=== PATIENT | female | born 1975 | race Two or more races ===

== ENCOUNTER 2019-03-18 17:29 | Inpatient (IN) | payer SELFPAY ==
[~2019-03-18] VITALS: Ht 172.7 cm; Wt 63.5 kg
[2019-03-18 18:14] LABS: BASO % 1 % (0-3); EOS % 0 % (0-3); LYMPH # 1.6 x10^3/uL (1.0-4.8); LYMPH % 30 % (24-48); MEAN CORPUSCULAR HEMOGLOBIN 16 pg (25-35); MEAN CORPUSCULAR HGB CONC 28 g/dL (31-37); MEAN CORPUSCULAR VOLUME 56 fL (79-100); MONO # 0.4 x10^3/uL (0.0-1.1); MONO % 8 % (0-9); NEUT # 3.3 x10^3/uL (1.8-7.7); NEUT % 62 % (31-73); PLATELET COUNT 379 x10^3/uL (140-400); RED BLOOD COUNT 3.12 x10^6/uL (3.50-5.40); RED CELL DISTRIBUTION WIDTH 19.4 % (11.5-14.5); WHITE BLOOD COUNT 5.4 x10^3/uL (4.0-11.0)
[2019-03-18 18:19] LABS: HEMATOCRIT 17.6 % (36.0-47.0)
[2019-03-18 19:10] LABS: ANISOCYTOSIS MOD; HYPOCHROMIA MARKED; MICROCYTOSIS MARKED; PLT ESTIMATE ADEQUATE (ADEQUATE); POLYCHROMASIA SLIGHT
--- NOTE | 2019-03-18 19:26 | PHYS DOC ---
Past Medical History Past Medical History: No Pertinent History Additional Past Surgical Histo: TUMOR REMOVED 2016 Alcohol Use: Occasionally Drug Use: Marijuana Adult General Chief Complaint Chief Complaint: VAGINAL BLEEDING HPI HPI Patient is a 43 year old female who presents in the ED today complaining of dizziness and vaginal bleeding. Patient states she had vaginal bleeding for 3 weeks, she states the bleeding stopped yesterday that she's realize she's had dizziness that has gotten worse today. She states the dizziness is worse when she is up and moving. Denies any abdominal pain. She states she has history of chronic anemia but is afraid she could've lost small blood bleeding. Review of Systems Review of Systems Constitutional: Denies fever or chills [] Eyes: Denies change in visual acuity, redness, or eye pain [] HENT: Denies nasal congestion or sore throat [] Respiratory: Denies cough or shortness of breath [] Cardiovascular: No additional information not addressed in HPI [] GI: Reports vaginal bleeding. Denies abdominal pain, nausea, vomiting, bloody stools or diarrhea [] : Denies dysuria or hematuria [] Musculoskeletal: Denies back pain or joint pain [] Integument: Denies rash or skin lesions [] Neurologic: Reports dizziness. Denies headache, focal weakness or sensory changes [] All other systems were reviewed and found to be within normal limits, except as documented in this note. Allergies Allergies Allergies Coded Allergies Type Severity Reaction Last Updated Verified Penicillins Allergy Intermediate 03/18/19 Yes Physical Exam Physical Exam Constitutional: Well developed, well nourished, no acute distress, non-toxic appearance. [] HENT: Normocephalic, atraumatic, bilateral external ears normal, oropharynx moist, no oral exudates, nose normal. [] Eyes: PERRLA, EOMI, conjunctiva normal, no discharge. [] Neck: Normal range of motion, no tenderness, supple, no stridor. [] Cardiovascular:Heart rate regular rhythm, no murmur [] Lungs & Thorax: Bilateral breath sounds clear to auscultation [] Abdomen: Bowel sounds normal, soft, no tenderness, no masses, no pulsatile masses. [] Pelvic exam external pelvic appears normal, cervix is visualized, closed, nausea, no adnexal tenderness, trace amount of white discharge in the vaginal vault. No bleeding Skin: Warm, dry, no erythema, no rash. [] Back: No tenderness, no CVA tenderness. [] Extremities: No tenderness, no cyanosis, no clubbing, ROM intact, no edema. [] Neurologic: Alert and oriented X 3, normal motor function, normal sensory fun ction, no focal deficits noted. [] Psychologic: Affect normal, judgement normal, mood normal. [] Current Patient Data Vital Signs Vital Signs Date Time Temp Pulse Resp B/P (MAP) Pulse Ox O2 Delivery O2 Flow Rate FiO2 03/18/19 17:50 98.2 77 16 91/48 (62) 99 Room Air 98.2 Lab Values Laboratory Tests Test 03/18/19 17:55 03/18/19 18:00 POC Urine HCG, Qualitative Hcg negative (Negative) White Blood Count 5.4 x10^3/uL (4.0-11.0) Red Blood Count 3.12 x10^6/uL (3.50-5.40) L Hemoglobin 5.0 g/dL (12.0-15.5) *L Hematocrit 17.6 % (36.0-47.0) *L Mean Corpuscular Volume 56 fL (79-100) L Mean Corpuscular Hemoglobin 16 pg (25-35) L Mean Corpuscular Hemoglobin Concent 28 g/dL (31-37) L Red Cell Distribution Width 19.4 % (11.5-14.5) H Platelet Count 379 x10^3/uL (140-400) Neutrophils (%) (Auto) 62 % (31-73) Lymphocytes (%) (Auto) 30 % (24-48) Monocytes (%) (Auto) 8 % (0-9) Eosinophils (%) (Auto) 0 % (0-3) Basophils (%) (Auto) 1 % (0-3) Neutrophils # (Auto) 3.3 x10^3/uL (1.8-7.7) Lymphocytes # (Auto) 1.6 x10^3/uL (1.0-4.8) Monocytes # (Auto) 0.4 x10^3/uL (0.0-1.1) Eosinophils # (Auto) 0.0 x10^3/uL (0.0-0.7) Basophils # (Auto) 0.0 x10^3/uL (0.0-0.2) Platelet Estimate Adequate (ADEQUATE) Large Platelets Few Polychromasia Slight Hypochromasia Marked Anisocytosis Mod Microcytosis Marked Macrocytosis Slight Laboratory Tests 03/18/19 18:00 Microbiology 03/18/19 Wet Prep - Final, Complete EKG EKG [] Radiology/Procedures Radiology/Procedures [] Course & Med Decision Making Course & Med Decision Making Pertinent Labs and Imaging studies reviewed. (See chart for details) This is a 43-year-old female patient presenting to the ED today with vaginal bleeding for 3 weeks that stopped yesterday and is currently dizzy. CBC with a WBC hemoglobin of 5.0, hematocrit 17.6. OB ultrasound is still pending. Blood pressure 91/48 with a heart rate of [address] Doe who will follow-up with patient Spoke with Dr. Corrigan who accepted patient for admission Blood transfusion ordered. Patient had no bleeding during pelvic exam Dragon Disclaimer Dragon Disclaimer This electronic medical record was generated, in whole or in part, using a voice recognition dictation system. Departure Departure Impression: Primary Impression: Anemia Additional Impression: Dysfunctional uterine bleeding Disposition: ADMITTED INPATIENT Condition: STABLE Problem Qualifiers Primary Impression: Anemia Anemia type: unspecified type Qualified Codes: D64.9 - Anemia, unspecified LEVI ORNELAS DOCTOR OSTEOPATHIC Mar 18, 2019 19:26
--- NOTE | 2019-03-18 19:28 | RAD ---
PELVIS W/TV History: Vaginal bleeding for 3 weeks Comparison: None. Findings: Multiple transabdominal sonographic images of the pelvis are submitted. Left ovary and uterus are poorly visualized. There is a hypoechoic lesion of the right ovary about 3 x 2.8 x 2.9 cm. Right ovary measures about 4.2 x 2.5 x 4.3 cm with normal color flow, spectral analysis waveform images are submitted. Transvaginal ultrasound: Multiple transvaginal sonographic images of pelvis are submitted. Endometrium is not significantly thickened about 0.5 cm although somewhat heterogeneous appearance and areas of relative increased vascularity. Uterus measured about 9.8 x 5.7 x 5.8 cm, somewhat heterogeneous appearance of the uterus. Right ovary is suboptimally visualized. There is a hypoechoic lesion of the right ovary. Left ovary measured 2.8 x 2.2 x 2.9 cm. There is normal color flow and low resistance vascularity of the left ovary. There is a hypoechoic lesion with internal septation of the left ovary about 10.9 x 1.7 x 1.6 cm, also some internal echoes present. No free fluid is demonstrated. There are some nabothian cysts. Impression: 1. Endometrial thickness is not considered significantly thickened although heterogeneous appearance with areas of relative hypervascularity, component of hyperplasia not excludable. Short-term follow-up within 2 months may be beneficial. 2. There is a somewhat complex cyst of the left ovary up to 1.9 cm and a cyst of the right ovary about 3 cm also for which attention on follow-up advised. Electronically signed by: Brody Barrera MD (03/18/2019 7:25 PM) [facility]
[2019-03-18] MEDS ORDERED: MORPHINE SULFATE 2 MG/ML VIAL. IV PRN (19:30)
[2019-03-18] MEDS ORDERED: ONDANSETRON PF 4 MG/2 ML VIAL. IV PRN (19:30)
[2019-03-18 20:00] VITALS: BP 99/34
[2019-03-18 21:18] VITALS: BP 99/48
[2019-03-18 21:31] VITALS: BP 99/53
[2019-03-18 22:32] VITALS: BP 107/61
[2019-03-18 23:05] VITALS: BP 107/61
[2019-03-18 23:33] VITALS: BP 100/50
[2019-03-19] VITALS (9 sets, daily range): BP systolic 92–115; BP diastolic 33–64
[2019-03-19 00:34] LABS: HEMATOCRIT 20.2 % (36.0-47.0)
[2019-03-19] MEDS ORDERED: BIOT1TAB2 PO (02:27)
[2019-03-19] MEDS ORDERED: MULT1TAB52 PO (02:27)
[2019-03-19 07:28] LABS: BASO % 1 % (0-3); EOS % 0 % (0-3); LYMPH # 1.6 x10^3/uL (1.0-4.8); LYMPH % 35 % (24-48); MEAN CORPUSCULAR HEMOGLOBIN 18 pg (25-35); MEAN CORPUSCULAR HGB CONC 30 g/dL (31-37); MEAN CORPUSCULAR VOLUME 61 fL (79-100); MONO # 0.4 x10^3/uL (0.0-1.1); MONO % 10 % (0-9); NEUT # 2.5 x10^3/uL (1.8-7.7); NEUT % 55 % (31-73); PLATELET COUNT 325 x10^3/uL (140-400); RED BLOOD COUNT 3.35 x10^6/uL (3.50-5.40); RED CELL DISTRIBUTION WIDTH 24.3 % (11.5-14.5); WHITE BLOOD COUNT 4.6 x10^3/uL (4.0-11.0)
[2019-03-19 08:03] LABS: HEMATOCRIT 20.3 % (36.0-47.0)
[2019-03-19 08:27] LABS: PROTHROMBIN TIME PATIENT 13.2 SEC (11.7-14.0)
[2019-03-19] MEDS ORDERED: ONDANSETRON PF 4 MG/2 ML VIAL. IV PRN (08:30)
[2019-03-19] MEDS ORDERED: ACETAMINOPHEN/CODEINE 300/30MG TABLET. PO PRN (08:30)
[2019-03-19] MEDS ORDERED: ACETAMINOPHEN 500 MG TABLET PO PRN (08:30)
[2019-03-19] MEDS: FERROUS SULFATE 325 MG TABLET. PO SCH (08:50)
[2019-03-19] MEDS: MULTIVITAMIN with MINERAL TABLET. PO SCH (08:50)
[2019-03-19] MEDS ORDERED: NON FORMULARY ITEM (Biotin 1 TAB) PO SCH (09:00)
[2019-03-19] MEDS ORDERED: FLU VAX QS 2019-20 (36MOS+)/PF 0.5 ML SYRINGE. VAX IM ONE (09:00)
--- NOTE | 2019-03-19 09:58 | PDOC1 ---
History and Physical Date of Admission Date of Admission DATE: 03/19/19 TIME: 09:51 Identification/Chief Complaint Chief Complaint no energy, dizzy Source Source: Caregiver, Chart review, Patient History of Present Illness History of Present Illness 43 female, no past medical, menorrhagia x 3 weeks, EVERYDAY, CLOTS. (3-1-0-3), had hx the same 2016 needed some oB GYNE surgical intervention (she cant recall) at [place], was mentioned to consider [facility]A before, SHe comes in bec dizzy and no energy at home and was found to have hgb 5 at ER so admitted, Microcytic indices, US pelvic shows only 0.5 cm endometrial thickening (already bled out her lining?) and some physiologic cysts, She is NOT bleeding anymore, AFter BT, hgb is only 6 and is about to get 1 pRBC again and I started provera and slated for D & C tmr AM by GYne Past Medical History Cardiovascular: No pertinent hx Pulmonary: No pertinent hx GI: No pertinent hx Heme/Onc: No pertinent hx Hepatobiliary: No pertinent hx Psych: No pertinent hx Rheumatologic: No pertinent hx Infectious disease: No pertinent hx ENT: No pertinent hx Renal/: No pertinent hx Endocrine: No pertinent hx Dermatology: No pertinent hx Past Surgical History Past Surgical History: Other (OB deliveries) Family History Family History: No Significant Social History Smoke: No ALCOHOL: none Drugs: None Current Problem List Problem List Problems Medical Problems: (1) Anemia Status: Acute (2) Dysfunctional uterine bleeding Status: Acute Current Medications Current Medications Current Medications Ondansetron HCl (Zofran) 4 mg PRN Q8HRS PRN IV NAUSEA/VOMITING; Start 03/18/19 at 19:30; Stop 03/19/19 at 08:20; Status DC Morphine Sulfate (Morphine Sulfate) 2 mg PRN Q2HR PRN IV PAIN; Start 03/18/19 at 19:30; Stop 03/19/19 at 19:29 Influenza Virus Vaccine Quadrival (Afluria Quad 2019-20 (3yr Up) Syringe) 0.5 ml ONCE ONCE VAX IM Last administered on 03/19/19at 08:52; Start 03/19/19 at 09:00; Stop 03/19/19 at 09:01; Status DC Ondansetron HCl (Zofran) 4 mg PRN Q6HRS PRN IV NAUSEA/VOMITING; Start 03/19/19 at 08:30 Acetaminophen (Tylenol) 500 mg PRN Q6HRS PRN PO MILD PAIN / TEMP; Start 03/19/19 at 08:30 Acetaminophen/ Codeine Phosphate (Tylenol #3) 1 tab PRN Q6HRS PRN PO MODERATE PAIN; Start 03/19/19 at 08:30 Non-Formulary Medication (Biotin ) 1 tab DAILY PO ; Start 03/19/19 at 09:00; Status UNV Multivitamins (Thera M Plus) 1 tab DAILY PO Last administered on 03/19/19at 08:50; Start 03/19/19 at 09:00 Ferrous Sulfate (Feosol) 325 mg DAILYWBKFT PO Last administered on 03/19/19at 08:50; Start 03/19/19 at 09:00 Medroxyprogesterone Acetate (Provera) 10 mg DAILY PO Last administered on 03/19/19at 08:50; Start 03/19/19 at 09:00 Active Scripts Active Reported Biotin 1 Mg Tablet 1 Tab PO DAILY 30 Days Multivitamins (Multivitamin) 1 Each Tablet 1 Tab PO DAILY Allergies Allergies: Coded Allergies: Penicillins (Verified Allergy, Intermediate, 03/18/19) ROS Review of System as per hpi, rest 14 pt neg Physical Exam General: Alert, Oriented X3, Cooperative, No acute distress HEENT: Atraumatic, PERRLA, EOMI, Other (pale palpebral conjunctivae) Lungs: Clear to auscultation, Normal air movement Heart: S1S2, RRR, no thrills, no rubs, no gallops, no murmurs Cardiovascular: S1 Abdomen: Normal bowel sounds, Soft, No tenderness, No hepatosplenomegaly, No masses Rectal Exam: not examined PELVIC: Nml ext genitalia Extremities: No clubbing, No cyanosis, No edema, Normal pulses, No tenderness/swelling Skin: No rashes, No breakdown, No significant lesion Neuro: Normal gait, Normal speech, Strength at 5/5 X4 ext, Normal tone, Sensation intact, Cranial nerves 3-12 NL, Reflexes 2+ Psych/Mental Status: Mental status NL, Mood NL Vitals Vitals Vital Signs Date Time Temp Pulse Resp B/P (MAP) Pulse Ox O2 Delivery O2 Flow Rate FiO2 10/13/19 07:40 98.6 58 18 92/49 (63) 96 Room Air 98.6 Labs Labs Laboratory Tests Test 03/18/19 17:55 03/18/19 18:00 03/19/19 00:25 03/19/19 05:33 Bedside Urine HCG, Qualitative Hcg negative (Negative) White Blood Count 5.4 x10^3/uL (4.0-11.0) 4.6 x10^3/uL (4.0-11.0) Red Blood Count 3.12 x10^6/uL (3.50-5.40) 3.35 x10^6/uL (3.50-5.40) Hemoglobin 5.0 g/dL (12.0-15.5) 6.0 g/dL (12.0-15.5) 6.0 g/dL (12.0-15.5) Hematocrit 17.6 % (36.0-47.0) 20.2 % (36.0-47.0) 20.3 % (36.0-47.0) Mean Corpuscular Volume 56 fL (79-100) 61 fL (79-100) Mean Corpuscular Hemoglobin 16 pg (25-35) 18 pg (25-35) Mean Corpuscular Hemoglobin Concent 28 g/dL (31-37) 30 g/dL (31-37) 30 g/dL (31-37) Red Cell Distribution Width 19.4 % (11.5-14.5) 24.3 % (11.5-14.5) Platelet Count 379 x10^3/uL (140-400) 325 x10^3/uL (140-400) Neutrophils (%) (Auto) 62 % (31-73) 55 % (31-73) Lymphocytes (%) (Auto) 30 % (24-48) 35 % (24-48) Monocytes (%) (Auto) 8 % (0-9) 10 % (0-9) Eosinophils (%) (Auto) 0 % (0-3) 0 % (0-3) Basophils (%) (Auto) 1 % (0-3) 1 % (0-3) Neutrophils # (Auto) 3.3 x10^3/uL (1.8-7.7) 2.5 x10^3/uL (1.8-7.7) Lymphocytes # (Auto) 1.6 x10^3/uL (1.0-4.8) 1.6 x10^3/uL (1.0-4.8) Monocytes # (Auto) 0.4 x10^3/uL (0.0-1.1) 0.4 x10^3/uL (0.0-1.1) Eosinophils # (Auto) 0.0 x10^3/uL (0.0-0.7) 0.0 x10^3/uL (0.0-0.7) Basophils # (Auto) 0.0 x10^3/uL (0.0-0.2) 0.0 x10^3/uL (0.0-0.2) Platelet Estimate Adequate (ADEQUATE) Large Platelets Few Polychromasia Slight Hypochromasia Marked Anisocytosis Mod Microcytosis Marked Macrocytosis Slight Iron Level 19 ug/dL (50-170) Total Iron Binding Capacity 405 ug/dL (250-450) Iron Saturation 5 % (15-34) Test 03/19/19 08:11 Prothrombin Time 13.2 SEC (11.7-14.0) Prothromb Time International Ratio 1.0 (0.8-1.1) Laboratory Tests Test 03/18/19 17:55 03/18/19 18:00 03/19/19 00:25 03/19/19 05:33 Bedside Urine HCG, Qualitative Hcg negative (Negative) White Blood Count 5.4 x10^3/uL (4.0-11.0) 4.6 x10^3/uL (4.0-11.0) Red Blood Count 3.12 x10^6/uL (3.50-5.40) 3.35 x10^6/uL (3.50-5.40) Hemoglobin 5.0 g/dL (12.0-15.5) 6.0 g/dL (12.0-15.5) 6.0 g/dL (12.0-15.5) Hematocrit 17.6 % (36.0-47.0) 20.2 % (36.0-47.0) 20.3 % (36.0-47.0) Mean Corpuscular Volume 56 fL (79-100) 61 fL (79-100) Mean Corpuscular Hemoglobin 16 pg (25-35) 18 pg (25-35) Mean Corpuscular Hemoglobin Concent 28 g/dL (31-37) 30 g/dL (31-37) 30 g/dL (31-37) Red Cell Distribution Width 19.4 % (11.5-14.5) 24.3 % (11.5-14.5) Platelet Count 379 x10^3/uL (140-400) 325 x10^3/uL (140-400) Neutrophils (%) (Auto) 62 % (31-73) 55 % (31-73) Lymphocytes (%) (Auto) 30 % (24-48) 35 % (24-48) Monocytes (%) (Auto) 8 % (0-9) 10 % (0-9) Eosinophils (%) (Auto) 0 % (0-3) 0 % (0-3) Basophils (%) (Auto) 1 % (0-3) 1 % (0-3) Neutrophils # (Auto) 3.3 x10^3/uL (1.8-7.7) 2.5 x10^3/uL (1.8-7.7) Lymphocytes # (Auto) 1.6 x10^3/uL (1.0-4.8) 1.6 x10^3/uL (1.0-4.8) Monocytes # (Auto) 0.4 x10^3/uL (0.0-1.1) 0.4 x10^3/uL (0.0-1.1) Eosinophils # (Auto) 0.0 x10^3/uL (0.0-0.7) 0.0 x10^3/uL (0.0-0.7) Basophils # (Auto) 0.0 x10^3/uL (0.0-0.2) 0.0 x10^3/uL (0.0-0.2) Platelet Estimate Adequate (ADEQUATE) Large Platelets Few Polychromasia Slight Hypochromasia Marked Anisocytosis Mod Microcytosis Marked Macrocytosis Slight Iron Level 19 ug/dL (50-170) Total Iron Binding Capacity 405 ug/dL (250-450) Iron Saturation 5 % (15-34) Test 03/19/19 08:11 Prothrombin Time 13.2 SEC (11.7-14.0) Prothromb Time International Ratio 1.0 (0.8-1.1) VTE Prophylaxis Ordered VTE Prophylaxis Devices: Contraindicated VTE Pharmacological Prophylaxi: Contraindicated Assessment/Plan Assessment/Plan 1. Menorrhagia x 3 weeks 2. HX uterine bleeding 2016 at [place] (s.p unrecalled uterine procedure and was mentioned MIRA) 3. Microcytic anemia 4,. Symptomatic anemia 5. Acute precip drop hgb PLAN: I might transfuse a second bag in prep for D and C Do 2 units instead Start provera 10 daily - if gyne ok with this NPO Post [place], start IVF at 11 OM tonight while NPO - dw and RN at bedside I discussed pelvic sono findings with them and provided a copy No home meds to reconcile HH tmr SANDRA NUR MD Mar 19, 2019 09:58
[2019-03-19 16:49] LABS: HEMATOCRIT 25.5 % (36.0-47.0); HEMOGLOBIN 7.7 g/dL (12.0-15.5)
[2019-03-19] MEDS: IV NORMAL SALINE 1000ML BAG 1,000 ML IV SCH (23:15)
[2019-03-20 02:20] VITALS: BP 108/55
[2019-03-20 07:00] VITALS: BP 92/43
[2019-03-20 07:06] LABS: HEMATOCRIT 24.1 % (36.0-47.0); HEMOGLOBIN 7.2 g/dL (12.0-15.5)
[2019-03-20 07:26] LABS: CALCIUM 8.3 mg/dL (8.5-10.1); CREATININE 0.5 mg/dL (0.6-1.0); POTASSIUM 3.7 mmol/L (3.5-5.1)
[2019-03-20] MEDS: IV NORMAL SALINE 1000ML BAG 1,000 ML IV SCH (09:00)
--- NOTE | 2019-03-20 09:02 | PDOC ---
PROGRESS NOTES Chief Complaint Chief Complaint A/P: Acute blood loss anemia Vaginal bleeding History of Present Illness History of Present Illness Ms Christianson is a 43 yo female (3-1-0-3) w/ PMHx prior myomectomy 2105 who presents with menorrhagia x 3 weeks. She was c/o being dizzy and no energy at home and was found to have hgb 5 at ER so admitted, Microcytic indices, US pelvic shows only 0.5 cm endometrial thickening and some physiologic cysts. Bleeding stopped after initiation of provera and was given 2u PRBC to Hb 7.2 and started on iron and vitamin c. Seen by child welfare counselor, had pap, biopsy, negative GC/chlamydia and is feeling much better today Vitals Vitals Vital Signs Date Time Temp Pulse Resp B/P (MAP) Pulse Ox O2 Delivery O2 Flow Rate FiO2 03/20/19 07:00 97.8 54 17 92/43 (59) 98 Room Air 97.8 Physical Exam General: Alert, Oriented X3, Cooperative, No acute distress Abdomen: Normal bowel sounds, Soft, No tenderness, No hepatosplenomegaly, No masses Extremities: No clubbing, No cyanosis, No edema, Normal pulses, No tenderness/swelling Skin: No rashes, No breakdown, No significant lesion Labs LABS Laboratory Tests Test 03/19/19 15:30 03/20/19 05:25 Hemoglobin 7.7 g/dL (12.0-15.5) 7.2 g/dL (12.0-15.5) Hematocrit 25.5 % (36.0-47.0) 24.1 % (36.0-47.0) Mean Corpuscular Hemoglobin Concent 30 g/dL (31-37) 30 g/dL (31-37) Sodium Level 142 mmol/L (136-145) Potassium Level 3.7 mmol/L (3.5-5.1) Chloride Level 110 mmol/L (98-107) Carbon Dioxide Level 25 mmol/L (21-32) Anion Gap 7 (6-14) Blood Urea Nitrogen 9 mg/dL (7-20) Creatinine 0.5 mg/dL (0.6-1.0) Estimated GFR (Cockcroft-Gault) 134.0 Glucose Level 73 mg/dL (70-99) Calcium Level 8.3 mg/dL (8.5-10.1) Assessment and Plan Assessmemt and Plan Problems Medical Problems: (1) Anemia Status: Acute (2) Dysfunctional uterine bleeding Status: Acute Comment Review of Relevant I have reviewed the following items cecil (where applicable) has been applied. Labs Laboratory Tests Test 03/18/19 17:55 03/18/19 18:00 03/19/19 00:25 03/19/19 05:33 Bedside Urine HCG, Qualitative Hcg negative (Negative) White Blood Count 5.4 x10^3/uL (4.0-11.0) 4.6 x10^3/uL (4.0-11.0) Red Blood Count 3.12 x10^6/uL (3.50-5.40) 3.35 x10^6/uL (3.50-5.40) Hemoglobin 5.0 g/dL (12.0-15.5) 6.0 g/dL (12.0-15.5) 6.0 g/dL (12.0-15.5) Hematocrit 17.6 % (36.0-47.0) 20.2 % (36.0-47.0) 20.3 % (36.0-47.0) Mean Corpuscular Volume 56 fL (79-100) 61 fL (79-100) Mean Corpuscular Hemoglobin 16 pg (25-35) 18 pg (25-35) Mean Corpuscular Hemoglobin Concent 28 g/dL (31-37) 30 g/dL (31-37) 30 g/dL (31-37) Red Cell Distribution Width 19.4 % (11.5-14.5) 24.3 % (11.5-14.5) Platelet Count 379 x10^3/uL (140-400) 325 x10^3/uL (140-400) Neutrophils (%) (Auto) 62 % (31-73) 55 % (31-73) Lymphocytes (%) (Auto) 30 % (24-48) 35 % (24-48) Monocytes (%) (Auto) 8 % (0-9) 10 % (0-9) Eosinophils (%) (Auto) 0 % (0-3) 0 % (0-3) Basophils (%) (Auto) 1 % (0-3) 1 % (0-3) Neutrophils # (Auto) 3.3 x10^3/uL (1.8-7.7) 2.5 x10^3/uL (1.8-7.7) Lymphocytes # (Auto) 1.6 x10^3/uL (1.0-4.8) 1.6 x10^3/uL (1.0-4.8) Monocytes # (Auto) 0.4 x10^3/uL (0.0-1.1) 0.4 x10^3/uL (0.0-1.1) Eosinophils # (Auto) 0.0 x10^3/uL (0.0-0.7) 0.0 x10^3/uL (0.0-0.7) Basophils # (Auto) 0.0 x10^3/uL (0.0-0.2) 0.0 x10^3/uL (0.0-0.2) Platelet Estimate Adequate (ADEQUATE) Large Platelets Few Polychromasia Slight Hypochromasia Marked Anisocytosis Mod Microcytosis Marked Macrocytosis Slight Iron Level 19 ug/dL (50-170) Total Iron Binding Capacity 405 ug/dL (250-450) Iron Saturation 5 % (15-34) Test 03/19/19 08:11 03/19/19 15:30 03/20/19 05:25 Prothrombin Time 13.2 SEC (11.7-14.0) Prothromb Time International Ratio 1.0 (0.8-1.1) Hemoglobin 7.7 g/dL (12.0-15.5) 7.2 g/dL (12.0-15.5) Hematocrit 25.5 % (36.0-47.0) 24.1 % (36.0-47.0) Mean Corpuscular Hemoglobin Concent 30 g/dL (31-37) 30 g/dL (31-37) Sodium Level 142 mmol/L (136-145) Potassium Level 3.7 mmol/L (3.5-5.1) Chloride Level 110 mmol/L (98-107) Carbon Dioxide Level 25 mmol/L (21-32) Anion Gap 7 (6-14) Blood Urea Nitrogen 9 mg/dL (7-20) Creatinine 0.5 mg/dL (0.6-1.0) Estimated GFR (Cockcroft-Gault) 134.0 Glucose Level 73 mg/dL (70-99) Calcium Level 8.3 mg/dL (8.5-10.1) Laboratory Tests Test 03/19/19 15:30 03/20/19 05:25 Hemoglobin 7.7 g/dL (12.0-15.5) 7.2 g/dL (12.0-15.5) Hematocrit 25.5 % (36.0-47.0) 24.1 % (36.0-47.0) Mean Corpuscular Hemoglobin Concent 30 g/dL (31-37) 30 g/dL (31-37) Sodium Level 142 mmol/L (136-145) Potassium Level 3.7 mmol/L (3.5-5.1) Chloride Level 110 mmol/L (98-107) Carbon Dioxide Level 25 mmol/L (21-32) Anion Gap 7 (6-14) Blood Urea Nitrogen 9 mg/dL (7-20) Creatinine 0.5 mg/dL (0.6-1.0) Estimated GFR (Cockcroft-Gault) 134.0 Glucose Level 73 mg/dL (70-99) Calcium Level 8.3 mg/dL (8.5-10.1) Microbiology 03/18/19 Wet Prep - Final, Complete Medications Current Medications Ondansetron HCl (Zofran) 4 mg PRN Q8HRS PRN IV NAUSEA/VOMITING; Start 03/18/19 at 19:30; Stop 03/19/19 at 08:20; Status DC Morphine Sulfate (Morphine Sulfate) 2 mg PRN Q2HR PRN IV PAIN; Start 03/18/19 at 19:30; Stop 03/19/19 at 19:29; Status DC Influenza Virus Vaccine Quadrival (Afluria Quad 2019-20 (3yr Up) Syringe) 0.5 ml ONCE ONCE VAX IM Last administered on 03/19/19at 08:52; Start 03/19/19 at 09:00; Stop 03/19/19 at 09:01; Status DC Ondansetron HCl (Zofran) 4 mg PRN Q6HRS PRN IV NAUSEA/VOMITING; Start 03/19/19 at 08:30 Acetaminophen (Tylenol) 500 mg PRN Q6HRS PRN PO MILD PAIN / TEMP; Start 03/19/19 at 08:30 Acetaminophen/ Codeine Phosphate (Tylenol #3) 1 tab PRN Q6HRS PRN PO MODERATE PAIN; Start 03/19/19 at 08:30 Non-Formulary Medication (Biotin ) 1 tab DAILY PO ; Start 03/19/19 at 09:00; Status UNV Multivitamins (Thera M Plus) 1 tab DAILY PO Last administered on 03/19/19at 08:50; Start 03/19/19 at 09:00 Ferrous Sulfate (Feosol) 325 mg DAILYWBKFT PO Last administered on 03/19/19at 08:50; Start 03/19/19 at 09:00 Medroxyprogesterone Acetate (Provera) 10 mg DAILY PO Last administered on 03/19/19at 08:50; Start 03/19/19 at 09:00 Sodium Chloride 1,000 ml @ 100 mls/hr Q10H IV Last administered on 03/19/19at 23:15; Start 03/19/19 at 23:00 Active Scripts Active Reported Biotin 1 Mg Tablet 1 Tab PO DAILY 30 Days Multivitamins (Multivitamin) 1 Each Tablet 1 Tab PO DAILY Vitals/I & O Vital Sign - Last 24 Hours 03/19/19 03/19/19 03/19/19 03/19/19 09:25 09:40 10:40 10:58 Temp 98.6 98.1 98.3 98.3 98.6 98.1 98.3 98.3 Pulse 58 62 57 57 Resp 18 18 16 18 B/P (MAP) 92/49 95/33 104/46 104/46 (65) Pulse Ox 99 O2 Delivery Room Air 03/19/19 03/19/19 03/19/19 03/19/19 15:05 19:00 20:00 22:57 Temp 98.7 98.5 98.3 98.7 98.5 98.3 Pulse 61 54 78 Resp 18 19 18 B/P (MAP) 98/41 (60) 99/56 (70) 115/64 (81) Pulse Ox 98 96 99 O2 Delivery Room Air Room Air Room Air Room Air 03/20/19 03/20/19 02:20 07:00 Temp 98.2 97.8 98.2 97.8 Pulse 69 54 Resp 19 17 B/P (MAP) 108/55 (72) 92/43 (59) Pulse Ox 98 98 O2 Delivery Room Air Room Air Intake and Output 03/19/19 03/19/19 03/20/19 14:59 22:59 06:59 Intake Total 280 ml Output Total 0 ml Balance 280 ml 0 ml GARTH GOMEZ MD Mar 20, 2019 09:02
[2019-03-20] MEDS: MULTIVITAMIN with MINERAL TABLET. PO SCH (10:40)
[2019-03-20] MEDS: FERROUS SULFATE 325 MG TABLET. PO SCH (10:41)
[2019-03-20 10:59] VITALS: BP 92/50
[2019-03-20] MEDS ORDERED: MEDR2.5T28 PO (14:52)
[2019-03-20] MEDS ORDERED: ACET1TAB33 PO ×3 (14:52→15:05)
[2019-03-20 15:04] VITALS: BP 95/49
--- NOTE | 2019-03-20 15:30 | NUR ---
pt discharged home with significant other. IV removed cath intact. script for tylenol #3 provided. pt stable upon DC. RN attempted to call in [employer] script to [facility], but pharmacist said there were 2 patients w/ same name and in system and they needed address to verify. pt had no address or phone number on hospital face sheet so was not able to verify.
[2019-03-20 19:21] LABS: GC PROBE Negative (Negative)
--- NOTE | 2019-03-20 20:25 | PDOC3 ---
Discharge Summary Visit Information Date of Admission: Mar 18, 2019 Date of Discharge: Mar 20, 2019 Admitting Diagnosis: Acute blood loss anemia Final Diagnosis Problems Medical Problems: (1) Anemia Status: Acute (2) Dysfunctional uterine bleeding Status: Acute Brief Hospital Course Allergies Allergies Coded Allergies Type Severity Reaction Last Updated Verified Penicillins Allergy Intermediate 03/18/19 Yes Vital Signs Vital Signs Date Time Temp Pulse Resp B/P (MAP) Pulse Ox O2 Delivery O2 Flow Rate FiO2 03/20/19 15:04 97.8 55 17 95/49 (64) 98 Room Air 97.8 Lab Results Laboratory Tests Test 03/19/19 00:25 03/19/19 05:33 03/19/19 08:11 03/19/19 15:30 Hemoglobin 6.0 g/dL (12.0-15.5) 6.0 g/dL (12.0-15.5) 7.7 g/dL (12.0-15.5) Hematocrit 20.2 % (36.0-47.0) 20.3 % (36.0-47.0) 25.5 % (36.0-47.0) Mean Corpuscular Hemoglobin Concent 30 g/dL (31-37) 30 g/dL (31-37) 30 g/dL (31-37) White Blood Count 4.6 x10^3/uL (4.0-11.0) Red Blood Count 3.35 x10^6/uL (3.50-5.40) Mean Corpuscular Volume 61 fL (79-100) Mean Corpuscular Hemoglobin 18 pg (25-35) Red Cell Distribution Width 24.3 % (11.5-14.5) Platelet Count 325 x10^3/uL (140-400) Neutrophils (%) (Auto) 55 % (31-73) Lymphocytes (%) (Auto) 35 % (24-48) Monocytes (%) (Auto) 10 % (0-9) Eosinophils (%) (Auto) 0 % (0-3) Basophils (%) (Auto) 1 % (0-3) Neutrophils # (Auto) 2.5 x10^3/uL (1.8-7.7) Lymphocytes # (Auto) 1.6 x10^3/uL (1.0-4.8) Monocytes # (Auto) 0.4 x10^3/uL (0.0-1.1) Eosinophils # (Auto) 0.0 x10^3/uL (0.0-0.7) Basophils # (Auto) 0.0 x10^3/uL (0.0-0.2) Iron Level 19 ug/dL (50-170) Total Iron Binding Capacity 405 ug/dL (250-450) Iron Saturation 5 % (15-34) Prothrombin Time 13.2 SEC (11.7-14.0) Prothromb Time International Ratio 1.0 (0.8-1.1) Test 03/20/19 05:25 Hemoglobin 7.2 g/dL (12.0-15.5) Hematocrit 24.1 % (36.0-47.0) Mean Corpuscular Hemoglobin Concent 30 g/dL (31-37) Sodium Level 142 mmol/L (136-145) Potassium Level 3.7 mmol/L (3.5-5.1) Chloride Level 110 mmol/L (98-107) Carbon Dioxide Level 25 mmol/L (21-32) Anion Gap 7 (6-14) Blood Urea Nitrogen 9 mg/dL (7-20) Creatinine 0.5 mg/dL (0.6-1.0) Estimated GFR (Cockcroft-Gault) 134.0 Glucose Level 73 mg/dL (70-99) Calcium Level 8.3 mg/dL (8.5-10.1) Laboratory Tests Test 03/20/19 05:25 Hemoglobin 7.2 g/dL (12.0-15.5) Hematocrit 24.1 % (36.0-47.0) Mean Corpuscular Hemoglobin Concent 30 g/dL (31-37) Sodium Level 142 mmol/L (136-145) Potassium Level 3.7 mmol/L (3.5-5.1) Chloride Level 110 mmol/L (98-107) Carbon Dioxide Level 25 mmol/L (21-32) Anion Gap 7 (6-14) Blood Urea Nitrogen 9 mg/dL (7-20) Creatinine 0.5 mg/dL (0.6-1.0) Estimated GFR (Cockcroft-Gault) 134.0 Glucose Level 73 mg/dL (70-99) Calcium Level 8.3 mg/dL (8.5-10.1) Brief Hospital Course A/P: Acute blood loss anemia Vaginal bleeding Ms Christianson is a 43 yo female (3-1-0-3) w/ PMHx prior myomectomy 2105 who presents with menorrhagia x 3 weeks. She was c/o being dizzy and no energy at home and was found to have hgb 5 at ER so admitted, Microcytic indices, US pelvic shows only 0.5 cm endometrial thickening and some physiologic cysts. Bleeding stopped after initiation of provera and was given 2u PRBC to Hb 7.2 and started on iron and vitamin c. Seen by ob/gyn, had pap, biopsy, negative GC/chlamydia and is feeling much better today. Greater than 30 minutes spent on d/c Discharge Information Condition at Discharge: Improved Follow Up: Weeks (1) Disposition/Orders: D/C to Home Scheduled Biotin (Biotin) 1 Mg Tablet, 1 TAB PO DAILY for spplement for 30 Days, #30 Ref 0 (Reported) Entered as Reported by: ROLA BAIG on 03/19/19226 Last Taken: Unknown Dose on 03/18/19899 Last Action: Converted on 03/19/19819 by SANDRA NUR Medroxyprogesterone Acetate (Medroxyprogesterone Acetate) 2.5 Mg Tablet, 5 MG PO DAILY for bleeding for 14 Days, #28 Prescribed by: GARTH GOMEZ MD on 03/20/19 5532 Multivitamin (Multivitamins) 1 Each Tablet, 1 TAB PO DAILY for supplement, #90 Ref 3 (Reported) Entered as Reported by: ROLA BAIG on 03/19/19226 Last Taken: Unknown Dose on 03/18/19899 Last Action: Converted on 03/19/19819 by SANDRA NUR Scheduled PRN Acetaminophen With Codeine (Acetaminophen-Cod #3 Tablet) 1 Each Tablet, 1 TAB PO PRN Q6HRS PRN for MODERATE PAIN for 2 Days, #6 Prescribed by: GARTH GOMEZ MD on 03/20/19 1500 GARTH GOMEZ MD Mar 20, 2019 20:25
--- NOTE | 2019-03-21 11:07 | PATHOLOGY ---
[facility] Accession Number: [id number] . 01 Material submitted: . endometrium - ENDOMETRIAL BIOPSY . 01 Clinical history: . Abnormal uterine bleeding . 02 Diagnosis: Endometrium, "endometrial biopsy": - Polypoid fragments revealing disordered proliferative phase endometrium with glandular and stromal breakdown without any evidence of hyperplasia or malignancy. . (SHA:mml; 03/21/2019) [facility] 03/21/2019 0940 Local . 02 Electronically signed: . Jeremías Rivera MD, Pathologist NPI- [id number] . 01 Gross description: . Received in formalin labeled "Christianson, Tina," and additionally labeled on the requisition as "endometrial biopsy," is blood-tinged mucoid material containing small fragments of yun membranous tissue, measuring 2.3 x 0.8 x 0.1 cm in aggregate dimensions. The specimen is filtered and submitted entirely in cassette A1. (TSD; 03/20/2019) TOB/TOB 03/20/20191955 Local . 02 Pathologist provided ICD-10: N85.9 . 02 CPT . 968078 Specimen Comment: A courtesy copy of this report has been sent to Specimen Comment: [phone], . Specimen Comment: Report sent to / DR ORNELAS Specimen Comment: A duplicate report has been generated due to demographic updates. Performed at: 01 [facility] [address], [place] [id number] MD Sanket Prater MD Phone: [phone] Performed at: 02 [facility] [address] [place], [place] [id number] MD Zev Thomason MD Phone: [phone]
--- NOTE | 2019-03-28 21:54 | OP ---
DATE OF SURGERY: 03/20/2019 PREOPERATIVE DIAGNOSES: Anemia, menorrhagia. POSTOPERATIVE DIAGNOSES: Anemia, menorrhagia. PROCEDURE: Endometrial biopsy with Pap smear. SURGEON: Dr. Nadia Doe. ESTIMATED BLOOD LOSS: 500 mL. SPECIMENS: Pap smear, endometrial biopsy. COMPLICATIONS: None. CONDITION: Stable. DESCRIPTION OF PROCEDURE: The patient was brought down from the floor to the procedure room on Labor and Delivery. The patient had risks, benefits, indications, alternatives and expectations discussed. The patient was put on the exam table. A bivalve speculum was used to visualize the cervix. The patient had not had a Pap smear in recent history, so Pap smear was performed. A single tooth tenaculum was used to grasp the anterior lip of the cervix. Endometrial biopsy was performed and placed in formalin. A single tooth tenaculum was removed. Puncture sites were hemostatic. Procedure was terminated. The patient went back to the floor in stable condition. NADIA DOE MD DR: CHRISTA/moustapha JOB#: [id number] / [id number]
--- NOTE | 2019-03-29 00:24 | CONS ---
DATE OF CONSULTATION: 03/19/2019 REASON FOR CONSULT: Menorrhagia with severe anemia. Chart was reviewed. HISTORY OF PRESENT ILLNESS: This is a 43-year-old patient, 3, para 3, that presented to the ER with the vaginal bleeding and anemia. The patient's significant past medical history is noncontributory. The patient states in [place], she had a tumor removed by the hysteroscope with most likely a fibroid. The patient also has a history of marijuana use and alcohol occasionally. The patient was informed secondary to her severe anemia and menorrhagia that endometrial biopsy would need to be performed to rule out any type of hyperplasia or malignancy and options down the road would probably be ablation or hysterectomy or hormonal control. The patient currently wants to have more children. Therefore, she will have endometrial biopsy the following day if stable. IMPRESSION: Menorrhagia, severe anemia. PLAN: Endometrial biopsy. NADIA VELAZQUEZ MD DR: CHRISTA/moustapha JOB#: [id number] / [id number]
== END 2019-03-20 15:30 | disposition home or self-care (01) | DRG 744 ==
LOC: ER 17:29 → 5 SOUTH 18:41
PROVIDERS: ADMIT Family Medicine; ATTEND Family Medicine
PROC: 30233N1 Transfusion of Nonautologous Red Blood Cells into Peripheral Vein, Percutaneous Approach (ICD-10-PCS; principal; 2019-03-18)
PROC: 0UDB7ZX Extraction of Endometrium, Via Natural or Artificial Opening, Diagnostic (ICD-10-PCS; 2019-03-20)
DX: N93.8 Other specified abnormal uterine and vaginal bleeding (principal); D62 Acute posthemorrhagic anemia; N92.0 Excessive and frequent menstruation with regular cycle; D50.9 Iron deficiency anemia, unspecified; Z88.0 Allergy status to penicillin
CPT/HCPCS: 36415; 36430; 76830; 76856; 80048; 81025; 83540; 83550; 85014; 85018; 85025; 85610; 86850; 86900; 86901; 86920; 87491; 87591; 88305; 90471; 90686; J7030; P9016; Q0111; 99285-25; G0378

== ENCOUNTER 2019-03-24 05:20 | Emergency (ER) | payer SELFPAY ==
[~2019-03-24] VITALS: Ht 172.7 cm; Wt 68.5 kg
[~2019-03-24 05:20] MED LIST: ACET1TAB33 PO; BIOT1TAB2 PO; MEDR2.5T28 PO; MULT1TAB52 PO
[2019-03-24 05:45] VITALS: BP 126/58
[2019-03-24] MEDS ORDERED: IV NORMAL SALINE 1000ML BAG 1,000 ML IV SCH ×2 (06:15)
[2019-03-24] MEDS ORDERED: ONDANSETRON PF 4 MG/2 ML VIAL. IV ONE (06:15)
[2019-03-24] MEDS ORDERED: fentaNYL PF VIAL 100 MCG/2 ML VIAL IV ONE (06:15)
--- NOTE | 2019-03-24 06:17 | PHYS DOC ---
Past Medical History Past Medical History: No Pertinent History Additional Past Surgical Histo: TUMOR REMOVED 2015 Alcohol Use: Occasionally Drug Use: Marijuana Adult General Chief Complaint Chief Complaint: VAGINAL BLEEDING HPI HPI Patient is a 43 year old female who presents with complaining of vaginal bleeding. Patient states she has had heavy vaginal bleeding and had hospitalization recently because of anemia and needs for blood transfusion. Patient states she started her menstruation yesterday and having heavy vaginal bleeding with passing blood clots and cramping abdominal pain related to pain 10 over 10. Patient denies chest pain, shortness of breath, nausea vomiting, dizziness. Review of Systems Review of Systems Constitutional: Denies fever or chills [] Eyes: Denies change in visual acuity, redness, or eye pain [] HENT: Denies nasal congestion or sore throat [] Respiratory: Denies cough or shortness of breath [] Cardiovascular: No additional information not addressed in HPI [] GI: Reports abdominal pain, denies nausea, vomiting, bloody stools or diarrhea [] : Denies dysuria or hematuria [] Musculoskeletal: Denies back pain or joint pain [] Integument: Denies rash or skin lesions [] Neurologic: Denies headache, focal weakness or sensory changes [] Endocrine: Denies polyuria or polydipsia [] All other systems were reviewed and found to be within normal limits, except as documented in this note. Current Medications Current Medications Current Medications Medications (Trade) Dose Ordered Sig/Abiel Start Time Stop Time Status Last Admin Dose Admin Fentanyl Citrate (Fentanyl 2ml Vial) 50 mcg 1X ONCE 03/24/19 06:15 03/24/19 06:16 DC 03/24/19 06:39 50 MCG Ondansetron HCl (Zofran) 4 mg 1X ONCE 03/24/19 06:15 03/24/19 06:16 DC 03/24/19 06:39 4 MG Sodium Chloride 1,000 ml @ 100 mls/hr Q10H 03/24/19 06:15 03/24/19 16:14 Allergies Allergies Allergies Coded Allergies Type Severity Reaction Last Updated Verified Penicillins Allergy Intermediate 03/18/19 Yes Physical Exam Physical Exam Constitutional: Well developed, well nourished, mild distress, non-toxic appearance, mild pallor. [] HENT: Normocephalic, atraumatic. Eyes: PERRLA, EOMI, conjunctiva normal, no discharge. [] Neck: Normal range of motion, no tenderness, supple, no stridor. [] Cardiovascular:Heart rate regular rhythm, no murmur [] Lungs & Thorax: Bilateral breath sounds clear to auscultation [] Abdomen: Bowel sounds normal, soft, no tenderness, no masses, no pulsatile masses. [] Skin: Warm, dry, no erythema, no rash. [] Back: No tenderness, no CVA tenderness. [] Extremities: No tenderness, no cyanosis, no clubbing, ROM intact, no edema. [] Neurologic: Alert and oriented X 3, no focal deficits noted. [] Psychologic: Affect normal, judgement normal, mood normal. [] Current Patient Data Vital Signs Vital Signs Date Time Temp Pulse Resp B/P (MAP) Pulse Ox O2 Delivery O2 Flow Rate FiO2 03/24/19 06:39 18 100 Room Air 03/24/19 05:45 97.8 61 126/58 (80) 97.8 Lab Values Laboratory Tests Test 03/24/19 06:05 White Blood Count 5.2 x10^3/uL (4.0-11.0) Red Blood Count 4.07 x10^6/uL (3.50-5.40) Hemoglobin 7.8 g/dL (12.0-15.5) L Hematocrit 26.3 % (36.0-47.0) L Mean Corpuscular Volume 65 fL (79-100) #L Mean Corpuscular Hemoglobin 19 pg (25-35) L Mean Corpuscular Hemoglobin Concent 30 g/dL (31-37) L Red Cell Distribution Width 31.2 % (11.5-14.5) H Platelet Count 314 x10^3/uL (140-400) Neutrophils (%) (Auto) 62 % (31-73) Lymphocytes (%) (Auto) 28 % (24-48) Monocytes (%) (Auto) 8 % (0-9) Eosinophils (%) (Auto) 1 % (0-3) Basophils (%) (Auto) 1 % (0-3) Neutrophils # (Auto) 3.2 x10^3/uL (1.8-7.7) Lymphocytes # (Auto) 1.5 x10^3/uL (1.0-4.8) Monocytes # (Auto) 0.4 x10^3/uL (0.0-1.1) Eosinophils # (Auto) 0.0 x10^3/uL (0.0-0.7) Basophils # (Auto) 0.0 x10^3/uL (0.0-0.2) Platelet Estimate Pending Sodium Level 141 mmol/L (136-145) Potassium Level 4.0 mmol/L (3.5-5.1) Chloride Level 106 mmol/L (98-107) Carbon Dioxide Level 23 mmol/L (21-32) Anion Gap 12 (6-14) Blood Urea Nitrogen 16 mg/dL (7-20) Creatinine 0.7 mg/dL (0.6-1.0) Estimated GFR (Cockcroft-Gault) 90.9 BUN/Creatinine Ratio 23 (6-20) H Glucose Level 95 mg/dL (70-99) Calcium Level 8.7 mg/dL (8.5-10.1) Total Bilirubin 0.3 mg/dL (0.2-1.0) Aspartate Amino Transferase (AST) 23 U/L (15-37) Alanine Aminotransferase (ALT) 20 U/L (14-59) Alkaline Phosphatase 67 U/L (46-116) Total Protein 7.5 g/dL (6.4-8.2) Albumin 3.8 g/dL (3.4-5.0) Albumin/Globulin Ratio 1.0 (1.0-1.7) Laboratory Tests 03/24/19 06:05 Laboratory Tests 03/24/19 06:05 EKG EKG [] Radiology/Procedures Radiology/Procedures [] Course & Med Decision Making Course & Med Decision Making Pertinent Labs reviewed. (See chart for details) Evaluation of patient in ER showed 43-year-old female patient with history of menorrhagia and anemia presented to ER with complaining of starting her menstruation yesterday and heavy bleeding. Patient did not have tachycardia or hypotension on complaining of chest pain and shortness of breath and dizziness and weakness. Patient currently taking Atrovent. Patient had hemoglobin of 7.8. On-call SHE[employer] Dr Aburto was consulted at 0724 and recommended to follow-up with her office today and agreed with discharge patient home with prescription of Naprosyn.discharge: I've spoken with the patient and/or caregivers. I've explained the patient's condition, diagnosis and treatment plan based on information available to me at this time. I've answered the patient's and/or caregivers questions and addressed any concerns. The patient and/or caregivers have a good understanding the patient's diagnosis, condition and treatment plan as can be expected at this point. Vital signs have been stabilized. The patient's condition is stable for discharge from the emergency department. The patient will pursue further outpatient evaluation with her primary care provider or other designated consulting physician as outlined in the discharge instructions. Patient and/or caregivers are agreeable to this plan of care and follow-up instructions have been explained in detail. The patient and/or caregivers have received these instructions in written format and expressed understanding of these discharge instructions. The patient and her caregivers are aware that if any significant change in condition or worsening of symptoms should prompt him to immediately return to this of the closest emergency depa rtment. If an emergent department is not readily available I would encourage him to call 911. Dragon Disclaimer Dragon Disclaimer This electronic medical record was generated, in whole or in part, using a voice recognition dictation system. Departure Departure Impression: Primary Impression: Menorrhagia Additional Impressions: Anemia Dysfunctional uterine bleeding Disposition: HOME, SELF-CARE (@07T1) Condition: IMPROVED Referrals: NO PCP (PCP) VAUGHN CRAWFORD MD Patient Instructions: Anemia, FAQs, Menorrhagia Additional Instructions: Drink plenty of liquids Follow-up with [employer] physician today Return to ER if not getting better Continue taking iron pills. Scripts Naproxen (NAPROSYN) 500 Mg Tablet 1 TAB PO BID for pain, #20 TAB Prov: UMA MCDOWELL MD 03/24/19 Problem Qualifiers Primary Impression: Menorrhagia Menorrahagia type: with regular cycle Qualified Codes: N92.0 - Excessive and frequent menstruation with regular cycle Additional Impressions: Anemia Anemia type: unspecified type Qualified Codes: D64.9 - Anemia, unspecified UMA MCDOWELL MD Mar 24, 2019 06:17
[2019-03-24 06:24] LABS: BASO % 1 % (0-3); EOS % 1 % (0-3); HEMATOCRIT 26.3 % (36.0-47.0); HEMOGLOBIN 7.8 g/dL (12.0-15.5); LYMPH # 1.5 x10^3/uL (1.0-4.8); LYMPH % 28 % (24-48); MEAN CORPUSCULAR HEMOGLOBIN 19 pg (25-35); MEAN CORPUSCULAR HGB CONC 30 g/dL (31-37); MEAN CORPUSCULAR VOLUME 65 fL (79-100); MONO # 0.4 x10^3/uL (0.0-1.1); MONO % 8 % (0-9); NEUT # 3.2 x10^3/uL (1.8-7.7); NEUT % 62 % (31-73); PLATELET COUNT 314 x10^3/uL (140-400); RED BLOOD COUNT 4.07 x10^6/uL (3.50-5.40); RED CELL DISTRIBUTION WIDTH 31.2 % (11.5-14.5); WHITE BLOOD COUNT 5.2 x10^3/uL (4.0-11.0)
[2019-03-24 06:33] LABS: CALCIUM 8.7 mg/dL (8.5-10.1); CREATININE 0.7 mg/dL (0.6-1.0); GFR 90.9
[2019-03-24 06:38] LABS: PROTHROMBIN TIME PATIENT 12.6 SEC (11.7-14.0)
[2019-03-24 06:39] LABS: ALBUMIN 3.8 g/dL (3.4-5.0); TOTAL BILIRUBIN 0.3 mg/dL (0.2-1.0); TOTAL PROTEIN 7.5 g/dL (6.4-8.2)
[2019-03-24] MEDS ORDERED: NAPR-683 PO (07:33)
[2019-03-24 08:53] LABS: PLT ESTIMATE ADEQUATE (ADEQUATE)
[2019-03-24 08:54] LABS: POLYCHROMASIA PRESENT
[2019-03-24 08:55] LABS: ANISOCYTOSIS PRESENT; HYPOCHROMIA PRESENT; MICROCYTOSIS PRESENT; SPHEROCYTES PRESENT; TARGET CELLS PRESENT
== END 2019-03-24 08:00 | disposition home or self-care (01) ==
LOC: ER 05:20
DX: N92.0 Excessive and frequent menstruation with regular cycle (principal); D64.9 Anemia, unspecified; Z88.0 Allergy status to penicillin
CPT/HCPCS: 36415; 80053; 85025; 85610; 96374; 96375; 99284; J2405; J3010; J7030; 96361

== ENCOUNTER 2019-05-17 19:08 | Emergency (ER) | payer SELFPAY ==
[~2019-05-17] VITALS: Ht 172.7 cm; Wt 78.0 kg
[~2019-05-17 19:08] MED LIST changes: +NAPR-683 PO
[2019-05-17 19:35] VITALS: BP 132/75
--- NOTE | 2019-05-17 21:15 | PHYS DOC ---
Past Medical History Past Medical History: No Pertinent History Additional Past Surgical Histo: TUMOR REMOVED 2016 Alcohol Use: Occasionally Drug Use: Marijuana Adult General Chief Complaint Chief Complaint: Congestion HPI HPI Patient is a 43 year old female who presents to the emergency department with complaints of a dry cough, nasal congestion, and chest congestion for the last 5 days. 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 She denies any fever, shortness of breath, wheezing, chest pain, palpitations, nausea, vomiting, diarrhea, abdominal pain, dysuria, increased urinary frequency, rash, or ear pain. Patient states her throat has also been a little sore. Currently she denies any pain. All other ROS is neg unless otherwise noted in HPI. Review of Systems Review of Systems See Above Allergies Allergies Allergies Coded Allergies Type Severity Reaction Last Updated Verified Penicillins Allergy Intermediate 03/18/19 Yes Physical Exam Physical Exam See Above Constitutional: Well developed, well nourished, no acute distress, non-toxic appearance. [] HENT: Normocephalic, atraumatic, bilateral external ears normal, bilateral TMs normal, oropharynx moist, no oral exudates, nose congested Eyes: PERRLA, EOMI, conjunctiva normal, no discharge. [] Neck: Normal range of motion, no tenderness, supple, no stridor. [] Cardiovascular:Heart rate regular rhythm, no murmur [] Lungs & Thorax: Bilateral breath sounds clear to auscultation, Respirations even and unlabored, no retractions, no respiratory distress [] Skin: Warm, dry, no erythema, no rash. [] Back: No tenderness Extremities: No cyanosis, ROM intact, no edema. [] Neurologic: Alert and oriented X 3, no focal deficits noted. [] Psychologic: Affect normal, judgement normal, mood normal. [] Current Patient Data Vital Signs Vital Signs Date Time Temp Pulse Resp B/P (MAP) Pulse Ox O2 Delivery O2 Flow Rate FiO2 05/17/19 19:35 98.8 102 16 132/75 (94) 99 Room Air 98.8 EKG EKG [] Radiology/Procedures Radiology/Procedures [] Course & Med Decision Making Course & Med Decision Making Pertinent Labs and Imaging studies reviewed. (See chart for details) dx: medical screening exam A medical screening exam was performed, patient was found to have no emergent medical condition. The plan of care would've included URI instructions. However, the patient eloped after talking with registration. [] Dragon Disclaimer Dragon Disclaimer This electronic medical record was generated, in whole or in part, using a voice recognition dictation system. Departure Departure Impression: Primary Impression: Encounter for medical screening examination Disposition: HOME, SELF-CARE (pt left after speaking with registration) Condition: STABLE Referrals: NO PCP (PCP) PRIYANK FARRELL MACHINE OPERATOR FARMWORKER May 17, 2019 21:15
== END 2019-05-17 21:17 | disposition home or self-care (01) ==
LOC: ER 19:08
DX: R05 Cough (principal); R09.81 Nasal congestion; R09.89 Other specified symptoms and signs involving the circulatory and respiratory systems; F12.90 Cannabis use, unspecified, uncomplicated; Z98.890 Other specified postprocedural states; Z88.0 Allergy status to penicillin
CPT/HCPCS: 99281

== ENCOUNTER 2020-01-10 16:28 | Inpatient (IN) | payer SELFPAY ==
[~2020-01-10] VITALS: Ht 172.7 cm; Wt 82.7 kg
[~2020-01-10 16:28] MED LIST changes: +MULT-445 PO; -MULT1TAB52 PO
[2020-01-10] MEDS ORDERED: IV NORMAL SALINE 1000ML BAG 1,000 ML IV SCH (17:06)
--- NOTE | 2020-01-10 17:17 | PHYS DOC ---
Past Medical History Past Medical History: No Pertinent History Additional Past Surgical Histo: TUMOR REMOVED 2015 Smoking Status: Current Every Day Smoker Alcohol Use: Occasionally Drug Use: Marijuana General Adult EDM: Chief Complaint: VAGINAL BLEEDING HPI: HPI: Patient is a 44 year old female who presents with patient since that since December 27 she has been bleeding vaginally and going through 1 pad an hour. She states that she is starting to get short of breath when going upstairs and she is becoming very tired. She states last night she has some chest pains. She states she has had this problem in the past about a year ago. She states that she was wanting a hysterectomy and she was denied insurance because she may too much money. She states that she is never been diagnosed with anything in the past, she does not know why she is having a large amount of vaginal bleeding. Patient denies any abdominal pain, vision changes, headache, dizziness, nausea, vomiting, diarrhea, dysuria, numbness or tingling. Review of Systems: Review of Systems: Constitutional: Denies fever or chills. Lethargy.[] Eyes: Denies change in visual acuity. [] HENT: Denies nasal congestion or sore throat. [] Respiratory: Denies cough or +shortness of breath on exertion. [] Cardiovascular: + chest pain or denies edema. [] GI: Denies abdominal pain, nausea, vomiting, bloody stools or diarrhea. [] : Denies dysuria.Vaginal bleeding. [] Musculoskeletal: Denies back pain or joint pain. [] Integument: Denies rash. [] Neurologic: Denies headache, focal weakness or sensory changes. [] Endocrine: Denies polyuria or polydipsia. [] Lymphatic: Denies swollen glands. [] Psychiatric: Denies depression or anxiety. [] Heart Score: Risk Factors: Risk Factors: DM, Current or recent (<one month) smoker, HTN, HLP, family history of CAD, obesity. Risk Scores: Score 0 - 3: 2.5% MACE over next 6 weeks - Discharge Home Score 4 - 6: 20.3% MACE over next 6 weeks - Admit for Clinical Observation Score 7 - 10: 72.7% MACE over next 6 weeks - Early Invasive Strategies Allergies: Allergies: Allergies Coded Allergies Type Severity Reaction Last Updated Verified Penicillins Allergy Intermediate 03/18/19 Yes Physical Exam: PE: Constitutional: Well developed, well nourished, no acute distress, non-toxic appearance. [] HENT: Normocephalic, atraumatic, bilateral external ears normal, oropharynx moist, no oral exudates, nose normal. [] Eyes: PERRLA, EOMI, conjunctiva normal, no discharge. [] Neck: Normal range of motion, no tenderness, supple, no stridor. [] Cardiovascular:Heart rate regular rhythm, no murmur [] Lungs & Thorax: Bilateral breath sounds clear to auscultation [] Abdomen: Bowel sounds normal, soft, no tenderness, no masses, no pulsatile mass es. [] Skin: Warm, dry, no erythema, no rash. [] Back: No tenderness, no CVA tenderness. [] Extremities: No tenderness, no cyanosis, no clubbing, ROM intact, no edema. [] Neurologic: Alert and oriented X 3, normal motor function, normal sensory function, no focal deficits noted. [] Psychologic: Affect normal, judgement normal, mood normal. [] Normal Physical Exam Current Patient Data: Labs: Laboratory Tests Test 01/10/20 17:01 POC Urine HCG, Qualitative Hcg negative (Negative) EKG: EK and read by Dr Palomino as Sinus Rhythm and no STEMI[] Radiology/Procedures: Radiology/Procedures: [] Impression: [facility] [address] [place] [address] IMAGING REPORT Signed PATIENT: JANIS SADLER ACCOUNT: [id number] : 1975 LOCATION: ER AGE: 44 SEX: F EXAM STATUS: REG ER ORD. PHYSICIAN: THEE TEJADA APRN REASON: VAGINAL BLEEDING PROCEDURE: PELVIS W/TV Exam: Ultrasound pelvis Indication: Vaginal bleeding Technique: Real-time grayscale and color Doppler images of the pelvis were obtained by the department waiter/waitress first class. Comparisons: 03/18/2019 FINDINGS: Uterus measures 10.3 x 7.9 x 6.0 cm. Endometrium measures 1 cm in thickness with a small amount of fluid in the endometrium. Right ovary measures 4.4 x 2.2 x 2.5 cm. Left ovary measures 3.3 x 1.8 x 2.2 cm. Vascular flow identified within the ovaries bilaterally. No free fluid. IMPRESSION: Endometrium measures 1 cm in thickness with a small amount of fluid in the endometrium. Correlate with phase of cycle/menopausal status. Consider short-term follow-up imaging in 2 weeks to reassess. Electronically signed by: Mat Wilcox MD (01/10/2020 6:47 PM) [id number] DICTATED and SIGNED BY: MAT WILCOX MD DATE: 01/10/20 1847 Course & Med Decision Making: Course & Med Decision Making Pertinent Labs and Imaging studies reviewed. (See chart for details) Ambulatory with a steady gait. Speaks in full complete sentences. Skin pink warm and dry. Abdomen soft and nontender. Patient states to the nurse that she drink 6 "small boys" a day. ETOH level is < 10. Patient's hemoglobin is 6.7. Her vital signs are within normal limits. I have ordered 1 unit of blood and she will be admitted by the hospitalist. I have spoken to Dr Chan for admission. I will consult OB. [] Esmer Disclaimer: Esmer Disclaimer: This electronic medical record was generated, in whole or in part, using a voice recognition dictation system. Departure Departure Impression: Primary Impression: Dysfunctional uterine bleeding Additional Impression: Anemia Qualified Codes: D64.9 - Anemia, unspecified Disposition: ADMITTED INPATIENT Admitting Physician: JUANJO Condition: STABLE Referrals: NO PCP (PCP) Justicifation of Admission Dx: Justifications for Admission: Justification of Admission Dx: Yes Comments: LOW HEMOGLOBIN THEE TEJADA TUBE WINDER Jan 10, 2020 17:17
[2020-01-10 17:24] LABS: COLOR,URINE RED
[2020-01-10 17:25] LABS: BASO % 1 % (0-3); EOS % 1 % (0-3); HEMATOCRIT 22.4 % (36.0-47.0); LYMPH # 1.8 x10^3/uL (1.0-4.8); LYMPH % 26 % (24-48); MEAN CORPUSCULAR HEMOGLOBIN 19 pg (25-35); MEAN CORPUSCULAR HGB CONC 30 g/dL (31-37); MEAN CORPUSCULAR VOLUME 64 fL (79-100); MONO # 0.8 x10^3/uL (0.0-1.1); MONO % 11 % (0-9); NEUT # 4.2 x10^3/uL (1.8-7.7); NEUT % 61 % (31-73); PLATELET COUNT 408 x10^3/uL (140-400); RED BLOOD COUNT 3.52 x10^6/uL (3.50-5.40); RED CELL DISTRIBUTION WIDTH 20.3 % (11.5-14.5); WHITE BLOOD COUNT 6.8 x10^3/uL (4.0-11.0)
[2020-01-10 17:28] LABS: HEMOGLOBIN 6.7 g/dL (12.0-15.5)
[2020-01-10 17:33] LABS: CALCIUM 8.2 mg/dL (8.5-10.1); CREATININE 0.7 mg/dL (0.6-1.0); GFR 90.5; POTASSIUM 3.4 mmol/L (3.5-5.1)
[2020-01-10 17:37] LABS: CLARITY,URINE BLOODY
[2020-01-10 17:37] LABS: PROTHROMBIN TIME PATIENT 12.9 SEC (11.7-14.0)
[2020-01-10 17:38] LABS: RBC,URINE TNTC /HPF (0-2)
[2020-01-10 17:39] LABS: ALBUMIN 3.4 g/dL (3.4-5.0); ALBUMIN/GLOBULIN RATIO 0.9 (1.0-1.7); TOTAL BILIRUBIN 0.2 mg/dL (0.2-1.0); TOTAL PROTEIN 7.2 g/dL (6.4-8.2)
[2020-01-10 17:40] LABS: SQUAMOUS EPITHELIAL CELL,UR MOD /LPF
[2020-01-10 17:41] LABS: BACTERIA,URINE FEW /HPF (0-FEW)
[2020-01-10 18:02] LABS: ANISOCYTOSIS MOD; HYPOCHROMIA MOD; MICROCYTOSIS MARKED; PLT ESTIMATE ADEQUATE (ADEQUATE); POLYCHROMASIA SLIGHT
[2020-01-10 18:45] VITALS: BP 127/59
[2020-01-10] MEDS ORDERED: ONDANSETRON PF 4 MG/2 ML VIAL. IV PRN (18:45)
--- NOTE | 2020-01-10 18:50 | RAD ---
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 Comparisons: 03/18/2019 FINDINGS: Uterus measures 10.3 x 7.9 x 6.0 cm. Endometrium measures 1 cm in thickness with a small amount of fluid in the endometrium. Right ovary measures 4.4 x 2.2 x 2.5 cm. Left ovary measures 3.3 x 1.8 x 2.2 cm. Vascular flow identified within the ovaries bilaterally. No free fluid. IMPRESSION: Endometrium measures 1 cm in thickness with a small amount of fluid in the endometrium. Correlate with phase of cycle/menopausal status. Consider short-term follow-up imaging in 2 weeks to reassess. Electronically signed by: Mat Marley MD (01/10/2020 6:47 PM) [id number]
[2020-01-10 19:03] VITALS: BP 160/69
[2020-01-10 19:16] VITALS: BP 127/66
--- NOTE | 2020-01-10 19:21 | PDOC1 ---
History and Physical Date of Service: DOS: DATE: 01/10/20 TIME: 19:17 Chief Complaint: Problems: (1) Encounter for medical screening examination (2) Dysfunctional uterine bleeding (3) Anemia Chief Complain: Vaginal bleeding History of Present Illness: HPI: This is a middle-aged female who has had heavy vaginal bleeding since December 28 She is been going through a pad an hour since then She has a known previous history of dysfunctional uterine bleeding She has been wanting to get hysterectomy but insurance has been an issue Her hemoglobin today is 6.7 I discussed the case with ER physician and we are going to admit the patient tr ulise her and consult [employer] to consider hysterectomy Past Medical/Surgical History: PMH/PSH: Past Medical History: No Pertinent History Additional Past Surgical Histo: TUMOR REMOVED 2015 Smoking Status: Current Every Day Smoker Alcohol Use: Occasionally Drug Use: Marijuana Allergies: Allergies: Coded Allergies: Penicillins (Verified Allergy, Intermediate, 03/18/19) Family History: Family History: Diabetes Social History: Social History: She does not drink smoke or take drugs she just returned from [place] she goes there each year to help with the [employer] Current Medications: Current Medications Current Medications Sodium Chloride 1,000 ml @ 1,000 mls/hr Q1H IV Last administered on 01/10/20at 17:38; Start 01/10/20 at 17:06; Stop 01/10/20 at 18:05; Status DC Ondansetron HCl (Zofran) 4 mg PRN Q8HRS PRN IV NAUSEA/VOMITING; Start 01/10/20 at 18:45; Stop 01/11/20 at 18:44 Sodium Chloride 1,000 ml @ 100 mls/hr Q10H IV ; Start 01/10/20 at 18:44; Stop 01/11/20 at 18:43 Active Scripts Active Naprosyn (Naproxen) 500 Mg Tablet 1 Tab PO BID Acetaminophen-Cod #3 Tablet (Acetaminophen/Codeine Phosphate) 1 Each Tablet 1 Tab PO PRN Q6HRS PRN 2 Days Medroxyprogesterone Acetate 2.5 Mg Tablet 5 Mg PO DAILY 14 Days Reported Biotin 1 Mg Tablet 1 Tab PO DAILY 30 Days Multivitamins (Multivitamin) 1 Each Tablet 1 Tab PO DAILY ROS: Review of Systems Review of System REVIEW OF SYSTEMS: GENERAL: Denies weakness SKIN: No bruising, hair changes or rashes. EYES: No blurred, double or loss of vision. NOSE AND THROAT: No history of nosebleeds, hoarseness or sore throat. HEART: No history of palpitations, chest pain or shortness of breath on exertion. LUNGS: Denies cough, hemoptysis, wheezing or shortness of breath. GASTROINTESTINAL: Denies changes in appetite, nausea, vomiting, diarrhea or constipation. GENITOURINARY: Complains of heavy vaginal bleeding NEUROLOGIC: Denies history of numbness, tingling, or tremor. PSYCHIATRIC: No history of panic, anxiety or depression. ENDOCRINE: No history of heat or cold intolerance, polyuria or polydipsia. EXTREMITIES: Denies joint pain, pain on walking or stiffness. Physical Exam: Vital Signs: Vital Signs Date Time Temp Pulse Resp B/P (MAP) Pulse Ox O2 Delivery O2 Flow Rate FiO2 01/10/20 18:45 98.4 67 18 127/59 98.4 01/10/20 18:30 98 Room Air Physcial Exam: GEN: No apparent distress. Alert and oriented HEENT: Normal cephalic, atraumatic, external auditory canals are patent EYES: Extraocular muscles are intact, pupil are equally round and reactive to light and accommodation MUSCULOSKELETAL: Well developed , well nourished, good range of motion ENDOCRINE: No thyromegaly was palpated LYMPHATICS: No cervical chain or axillary nodes were noted HEMATOPOIETIC: No bruising NECK: Supple, no JVD, no thyromegaly was noted LUNGS: Clear to auscultation in all lung william without rhonchi or wheezing HEART: RRR, S!, S2 present. Peripheral pulses intact, no obvious murmurs noted ABDOMEN: Soft, nontender. Positive bowel sounds, no organomegaly, normal bowel sounds EXTREMITIES: Without clubbing, cyanosis, or edema. Pedal pulses intact. N egative Homans sign NEUROLOGIC: Normal speech and tone. A&O x 3, moves all extremities, no obvious focal deficits PSYCHIATRIC: Normal affect, normal mood. Stable SKIN: No ulcerations or rashes, good skin turgor, no jaundice VASCULAR: Good capillary refill, neurovascular bundle appears to be intact Labs: Labs: Laboratory Tests Test 01/10/20 16:55 01/10/20 17:01 01/10/20 17:02 Urine Collection Type Unknown Urine Color Red Urine Clarity Bloody Urine pH (<5.0-8.0) Urine Specific [place] (1.000-1.030) Urine Protein mg/dL (NEG-TRACE) Urine Glucose (UA) mg/dL (NEG) Urine Ketones (Stick) mg/dL (NEG) Urine Blood (NEG) Urine Nitrite (NEG) Urine Bilirubin (NEG) Urine Urobilinogen Dipstick mg/dL (0.2 mg/dL) Urine Leukocyte Esterase (NEG) Urine RBC Tntc /HPF (0-2) Urine WBC 1-4 /HPF (0-4) Urine Squamous Epithelial Cells Mod /LPF Urine Bacteria Few /HPF (0-FEW) Urine Mucus Marked /LPF Bedside Urine HCG, Qualitative Hcg negative (Negative) White Blood Count 6.8 x10^3/uL (4.0-11.0) Red Blood Count 3.52 x10^6/uL (3.50-5.40) Hemoglobin 6.7 g/dL (12.0-15.5) Hematocrit 22.4 % (36.0-47.0) Mean Corpuscular Volume 64 fL (79-100) Mean Corpuscular Hemoglobin 19 pg (25-35) Mean Corpuscular Hemoglobin Concent 30 g/dL (31-37) Red Cell Distribution Width 20.3 % (11.5-14.5) Platelet Count 408 x10^3/uL (140-400) Neutrophils (%) (Auto) 61 % (31-73) Lymphocytes (%) (Auto) 26 % (24-48) Monocytes (%) (Auto) 11 % (0-9) Eosinophils (%) (Auto) 1 % (0-3) Basophils (%) (Auto) 1 % (0-3) Neutrophils # (Auto) 4.2 x10^3/uL (1.8-7.7) Lymphocytes # (Auto) 1.8 x10^3/uL (1.0-4.8) Monocytes # (Auto) 0.8 x10^3/uL (0.0-1.1) Eosinophils # (Auto) 0.0 x10^3/uL (0.0-0.7) Basophils # (Auto) 0.0 x10^3/uL (0.0-0.2) Platelet Estimate Adequate (ADEQUATE) Polychromasia Slight Hypochromasia Mod Anisocytosis Mod Microcytosis Marked Prothrombin Time 12.9 SEC (11.7-14.0) Prothromb Time International Ratio 1.0 (0.8-1.1) Sodium Level 136 mmol/L (136-145) Potassium Level 3.4 mmol/L (3.5-5.1) Chloride Level 103 mmol/L (98-107) Carbon Dioxide Level 27 mmol/L (21-32) Anion Gap 6 (6-14) Blood Urea Nitrogen 11 mg/dL (7-20) Creatinine 0.7 mg/dL (0.6-1.0) Estimated GFR (Cockcroft-Gault) 90.5 BUN/Creatinine Ratio 16 (6-20) Glucose Level 91 mg/dL (70-99) Calcium Level 8.2 mg/dL (8.5-10.1) Total Bilirubin 0.2 mg/dL (0.2-1.0) Aspartate Amino Transf (AST/SGOT) 29 U/L (15-37) Alanine Aminotransferase (ALT/SGPT) 40 U/L (14-59) Alkaline Phosphatase 75 U/L (46-116) Troponin I Quantitative < 0.017 ng/mL (0.000-0.055) Total Protein 7.2 g/dL (6.4-8.2) Albumin 3.4 g/dL (3.4-5.0) Albumin/Globulin Ratio 0.9 (1.0-1.7) Ethyl Alcohol Level < 10 mg/dL (0-10) Laboratory Tests Test 01/10/20 16:55 01/10/20 17:01 01/10/20 17:02 Urine Collection Type Unknown Urine Color Red Urine Clarity Bloody Urine pH (<5.0-8.0) Urine Specific [place] (1.000-1.030) Urine Protein mg/dL (NEG-TRACE) Urine Glucose (UA) mg/dL (NEG) Urine Ketones (Stick) mg/dL (NEG) Urine Blood (NEG) Urine Nitrite (NEG) Urine Bilirubin (NEG) Urine Urobilinogen Dipstick mg/dL (0.2 mg/dL) Urine Leukocyte Esterase (NEG) Urine RBC Tntc /HPF (0-2) Urine WBC 1-4 /HPF (0-4) Urine Squamous Epithelial Cells Mod /LPF Urine Bacteria Few /HPF (0-FEW) Urine Mucus Marked /LPF Bedside Urine HCG, Qualitative Hcg negative (Negative) White Blood Count 6.8 x10^3/uL (4.0-11.0) Red Blood Count 3.52 x10^6/uL (3.50-5.40) Hemoglobin 6.7 g/dL (12.0-15.5) Hematocrit 22.4 % (36.0-47.0) Mean Corpuscular Volume 64 fL (79-100) Mean Corpuscular Hemoglobin 19 pg (25-35) Mean Corpuscular Hemoglobin Concent 30 g/dL (31-37) Red Cell Distribution Width 20.3 % (11.5-14.5) Platelet Count 408 x10^3/uL (140-400) Neutrophils (%) (Auto) 61 % (31-73) Lymphocytes (%) (Auto) 26 % (24-48) Monocytes (%) (Auto) 11 % (0-9) Eosinophils (%) (Auto) 1 % (0-3) Basophils (%) (Auto) 1 % (0-3) Neutrophils # (Auto) 4.2 x10^3/uL (1.8-7.7) Lymphocytes # (Auto) 1.8 x10^3/uL (1.0-4.8) Monocytes # (Auto) 0.8 x10^3/uL (0.0-1.1) Eosinophils # (Auto) 0.0 x10^3/uL (0.0-0.7) Basophils # (Auto) 0.0 x10^3/uL (0.0-0.2) Platelet Estimate Adequate (ADEQUATE) Polychromasia Slight Hypochromasia Mod Anisocytosis Mod Microcytosis Marked Prothrombin Time 12.9 SEC (11.7-14.0) Prothromb Time International Ratio 1.0 (0.8-1.1) Sodium Level 136 mmol/L (136-145) Potassium Level 3.4 mmol/L (3.5-5.1) Chloride Level 103 mmol/L (98-107) Carbon Dioxide Level 27 mmol/L (21-32) Anion Gap 6 (6-14) Blood Urea Nitrogen 11 mg/dL (7-20) Creatinine 0.7 mg/dL (0.6-1.0) Estimated GFR (Cockcroft-Gault) 90.5 BUN/Creatinine Ratio 16 (6-20) Glucose Level 91 mg/dL (70-99) Calcium Level 8.2 mg/dL (8.5-10.1) Total Bilirubin 0.2 mg/dL (0.2-1.0) Aspartate Amino Transf (AST/SGOT) 29 U/L (15-37) Alanine Aminotransferase (ALT/SGPT) 40 U/L (14-59) Alkaline Phosphatase 75 U/L (46-116) Troponin I Quantitative < 0.017 ng/mL (0.000-0.055) Total Protein 7.2 g/dL (6.4-8.2) Albumin 3.4 g/dL (3.4-5.0) Albumin/Globulin Ratio 0.9 (1.0-1.7) Ethyl Alcohol Level < 10 mg/dL (0-10) Assessment/Plan Assessment/Plan Dysfunctional uterine bleeding with anemia Plan Transfused 2 units Consult [employer] Trend hemoglobin Home meds DVT prophylaxis Full code Justicifation of Admission Dx: Justifications for Admission: Justification of Admission Dx: Yes OLEG LUGO III DO Jan 10, 2020 19:21
[2020-01-10 19:31] VITALS: BP 110/59
[2020-01-10 19:58] VITALS: BP 118/64
[2020-01-10] MEDS: IV NORMAL SALINE 1000ML BAG 1,000 ML IV SCH (20:12)
[2020-01-10 22:56] VITALS: BP 105/52
[2020-01-10] MEDS ORDERED: FERR-36 PO (23:23)
[2020-01-11 03:48] VITALS: BP 109/53
[2020-01-11] MEDS ORDERED: NAPROXEN 500 MG TABLET PO PRN (04:15)
[2020-01-11] MEDS: IV NORMAL SALINE 1000ML BAG 1,000 ML IV SCH (04:19)
[2020-01-11 07:00] VITALS: BP 96/50
[2020-01-11 08:11] LABS: HEMATOCRIT 22.9 % (36.0-47.0)
[2020-01-11 08:18] LABS: CALCIUM 7.7 mg/dL (8.5-10.1); CREATININE 0.6 mg/dL (0.6-1.0); GFR 108.1; POTASSIUM 3.6 mmol/L (3.5-5.1)
--- NOTE | 2020-01-11 09:23 | EKG ---
[facility] [address] [place] [address] Test Date: 2020-01-10 Test Time: 17:43:44 Pat Name: JANIS SADLER Department: Room: Gender: F Drafter Cartographic: : 1975 Requested By: THEE TEJADA Order Number: [id number] Reading MD: Measurements Intervals Brick Rate: 55 P: 20 MS: 168 QRS: 30 QRSD: 82 T: 40 QT: 436 QTc: 419 Interpretive Statements SINUS RHYTHM QRS(T) CONTOUR ABNORMALITY CONSIDER ANTEROSEPTAL MYOCARDIAL DAMAGE POSSIBLY ABNORMAL ECG RI6.01 No previous ECG available for comparison
[2020-01-11 10:57] VITALS: BP 107/59
--- NOTE | 2020-01-11 11:00 | PDOC2 ---
CONSULT Date of Consult Date of Consult DATE: 01/11/20 TIME: 10:58 Reason for Consult Reason for Consult: VB, anemia History of Present Illness Reason for Visit: 44y admitted for severe anemia and vaginal bleeding. The pt has been bleeding heavily since 12/28/19. She presented to the ER yesterday after she developed symptoms of SOA and CP. She states that her cycles are typically longer than average (~7 days). Typically the first 5 days are heavy and the last couple of days are light. She states that she rarely goes a month w/o a cycle. Her cycles have been like this since she was a teenager. She states that she came in last yr. Outpt f/u was arranged. The pt has attempted the use of OCPs in the past but stopped after sometime b/c she met someone that she wan glenis attempt with. She has not been on any tx since that time. She has desired something more definitive like hysterectomy for some time but did not have insurance at the time. The pt states that she had a uterine mass removed H/S and was found to be benign in 2015. This surgery was performed in [place]. She recently moved back her from [place] (November). Her initial Hgb was 6.7 and suad to 7.0 after 1U pRBC. An u/s performed revealed a uterus measuring 10.3 x 7.9 x 6.0 cm. 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 12/28/19 9yo / regular SH: 2PPW, rare EtOH Past Medical History Cardiovascular: No pertinent hx Pulmonary: No pertinent hx GI: No pertinent hx Heme/Onc: No pertinent hx Hepatobiliary: No pertinent hx Psych: No pertinent hx Rheumatologic: No pertinent hx Infectious disease: No pertinent hx Renal/: No pertinent hx Endocrine: No pertinent hx Past Surgical History Past Surgical History: Other Family History Family History: No Significant Social History ALCOHOL: none Drugs: None Current Problem List Problem List Problems Medical Problems: (1) Anemia Status: Acute (2) Dysfunctional uterine bleeding Status: Acute Current Medications Current Medications Current Medications Sodium Chloride 1,000 ml @ 1,000 mls/hr Q1H IV Last administered on 01/10/20at 17:38; Start 01/10/20 at 17:06; Stop 01/10/20 at 18:05; Status DC Ondansetron HCl (Zofran) 4 mg PRN Q8HRS PRN IV NAUSEA/VOMITING; Start 01/10/20 at 18:45; Stop 01/11/20 at 18:44 Sodium Chloride 1,000 ml @ 100 mls/hr Q10H IV Last administered on 01/11/20at 04:19; Start 01/10/20 at 18:44; Stop 01/11/20 at 18:43 Naproxen (Naprosyn) 500 mg PRN BID PRN PO PAIN Last administered on 01/11/20at 04:18; Start 01/11/20 at 04:15 Medroxyprogesterone Acetate (Provera) 5 mg DAILY PO ; Start 01/11/20 at 11:00 Active Scripts Active Reported Iron (Ferrous Sulfate) 325 Mg Tablet 325 Mg PO DAILY Multivitamins (Multivitamin) 1 Each Tablet 1 Tab PO DAILY Allergies Allergies: Coded Allergies: Penicillins (Verified Allergy, Intermediate, 03/18/19) Physical Exam General: Alert, Oriented X3, Cooperative, No acute distress HEENT: PERRLA, Mucous membr. moist/pink Lungs: Clear to auscultation, Normal air movement Heart: Regular rate, Normal S1, Normal S2, No murmurs Abdomen: Normal bowel sounds, Soft, No tenderness, No hepatosplenomegaly, No masses Extremities: No clubbing, No cyanosis, No edema, Normal pulses, No tenderness/swelling Skin: No rashes, No breakdown Neuro: Normal gait, Normal speech, Normal tone, Sensation intact, Reflexes 2+ Psych/Mental Status: Mental status NL, Mood NL Vitals VITALS Vital Signs Date Time Temp Pulse Resp B/P (MAP) Pulse Ox O2 Delivery O2 Flow Rate FiO2 01/11/20 10:57 97.6 71 16 107/59 (75) 97 Room Air 97.6 Labs Labs Laboratory Tests Test 01/10/20 16:55 01/10/20 17:01 01/10/20 17:02 01/11/20 07:45 Urine Collection Type Unknown Urine Color Red Urine Clarity Bloody Urine pH (<5.0-8.0) Urine Specific [place] (1.000-1.030) Urine Protein mg/dL (NEG-TRACE) Urine Glucose (UA) mg/dL (NEG) Urine Ketones (Stick) mg/dL (NEG) Urine Blood (NEG) Urine Nitrite (NEG) Urine Bilirubin (NEG) Urine Urobilinogen Dipstick mg/dL (0.2 mg/dL) Urine Leukocyte Esterase (NEG) Urine RBC Tntc /HPF (0-2) Urine WBC 1-4 /HPF (0-4) Urine Squamous Epithelial Cells Mod /LPF Urine Bacteria Few /HPF (0-FEW) Urine Mucus Marked /LPF Bedside Urine HCG, Qualitative Hcg negative (Negative) White Blood Count 6.8 x10^3/uL (4.0-11.0) Red Blood Count 3.52 x10^6/uL (3.50-5.40) Hemoglobin 6.7 g/dL (12.0-15.5) 7.0 g/dL (12.0-15.5) Hematocrit 22.4 % (36.0-47.0) 22.9 % (36.0-47.0) Mean Corpuscular Volume 64 fL (79-100) Mean Corpuscular Hemoglobin 19 pg (25-35) Mean Corpuscular Hemoglobin Concent 30 g/dL (31-37) 31 g/dL (31-37) Red Cell Distribution Width 20.3 % (11.5-14.5) Platelet Count 408 x10^3/uL (140-400) Neutrophils (%) (Auto) 61 % (31-73) Lymphocytes (%) (Auto) 26 % (24-48) Monocytes (%) (Auto) 11 % (0-9) Eosinophils (%) (Auto) 1 % (0-3) Basophils (%) (Auto) 1 % (0-3) Neutrophils # (Auto) 4.2 x10^3/uL (1.8-7.7) Lymphocytes # (Auto) 1.8 x10^3/uL (1.0-4.8) Monocytes # (Auto) 0.8 x10^3/uL (0.0-1.1) Eosinophils # (Auto) 0.0 x10^3/uL (0.0-0.7) Basophils # (Auto) 0.0 x10^3/uL (0.0-0.2) Platelet Estimate Adequate (ADEQUATE) Polychromasia Slight Hypochromasia Mod Anisocytosis Mod Microcytosis Marked Prothrombin Time 12.9 SEC (11.7-14.0) Prothromb Time International Ratio 1.0 (0.8-1.1) Sodium Level 136 mmol/L (136-145) 140 mmol/L (136-145) Potassium Level 3.4 mmol/L (3.5-5.1) 3.6 mmol/L (3.5-5.1) Chloride Level 103 mmol/L (98-107) 108 mmol/L (98-107) Carbon Dioxide Level 27 mmol/L (21-32) 25 mmol/L (21-32) Anion Gap 6 (6-14) 7 (6-14) Blood Urea Nitrogen 11 mg/dL (7-20) 13 mg/dL (7-20) Creatinine 0.7 mg/dL (0.6-1.0) 0.6 mg/dL (0.6-1.0) Estimated GFR (Cockcroft-Gault) 90.5 108.1 BUN/Creatinine Ratio 16 (6-20) Glucose Level 91 mg/dL (70-99) 104 mg/dL (70-99) Calcium Level 8.2 mg/dL (8.5-10.1) 7.7 mg/dL (8.5-10.1) Total Bilirubin 0.2 mg/dL (0.2-1.0) Aspartate Amino Transf (AST/SGOT) 29 U/L (15-37) Alanine Aminotransferase (ALT/SGPT) 40 U/L (14-59) Alkaline Phosphatase 75 U/L (46-116) Troponin I Quantitative < 0.017 ng/mL (0.000-0.055) Total Protein 7.2 g/dL (6.4-8.2) Albumin 3.4 g/dL (3.4-5.0) Albumin/Globulin Ratio 0.9 (1.0-1.7) Ethyl Alcohol Level < 10 mg/dL (0-10) Laboratory Tests Test 01/10/20 16:55 01/10/20 17:01 01/10/20 17:02 01/11/20 07:45 Urine Collection Type Unknown Urine Color Red Urine Clarity Bloody Urine pH (<5.0-8.0) Urine Specific [place] (1.000-1.030) Urine Protein mg/dL (NEG-TRACE) Urine Glucose (UA) mg/dL (NEG) Urine Ketones (Stick) mg/dL (NEG) Urine Blood (NEG) Urine Nitrite (NEG) Urine Bilirubin (NEG) Urine Urobilinogen Dipstick mg/dL (0.2 mg/dL) Urine Leukocyte Esterase (NEG) Urine RBC Tntc /HPF (0-2) Urine WBC 1-4 /HPF (0-4) Urine Squamous Epithelial Cells Mod /LPF Urine Bacteria Few /HPF (0-FEW) Urine Mucus Marked /LPF Bedside Urine HCG, Qualitative Hcg negative (Negative) White Blood Count 6.8 x10^3/uL (4.0-11.0) Red Blood Count 3.52 x10^6/uL (3.50-5.40) Hemoglobin 6.7 g/dL (12.0-15.5) 7.0 g/dL (12.0-15.5) Hematocrit 22.4 % (36.0-47.0) 22.9 % (36.0-47.0) Mean Corpuscular Volume 64 fL (79-100) Mean Corpuscular Hemoglobin 19 pg (25-35) Mean Corpuscular Hemoglobin Concent 30 g/dL (31-37) 31 g/dL (31-37) Red Cell Distribution Width 20.3 % (11.5-14.5) Platelet Count 408 x10^3/uL (140-400) Neutrophils (%) (Auto) 61 % (31-73) Lymphocytes (%) (Auto) 26 % (24-48) Monocytes (%) (Auto) 11 % (0-9) Eosinophils (%) (Auto) 1 % (0-3) Basophils (%) (Auto) 1 % (0-3) Neutrophils # (Auto) 4.2 x10^3/uL (1.8-7.7) Lymphocytes # (Auto) 1.8 x10^3/uL (1.0-4.8) Monocytes # (Auto) 0.8 x10^3/uL (0.0-1.1) Eosinophils # (Auto) 0.0 x10^3/uL (0.0-0.7) Basophils # (Auto) 0.0 x10^3/uL (0.0-0.2) Platelet Estimate Adequate (ADEQUATE) Polychromasia Slight Hypochromasia Mod Anisocytosis Mod Microcytosis Marked Prothrombin Time 12.9 SEC (11.7-14.0) Prothromb Time International Ratio 1.0 (0.8-1.1) Sodium Level 136 mmol/L (136-145) 140 mmol/L (136-145) Potassium Level 3.4 mmol/L (3.5-5.1) 3.6 mmol/L (3.5-5.1) Chloride Level 103 mmol/L (98-107) 108 mmol/L (98-107) Carbon Dioxide Level 27 mmol/L (21-32) 25 mmol/L (21-32) Anion Gap 6 (6-14) 7 (6-14) Blood Urea Nitrogen 11 mg/dL (7-20) 13 mg/dL (7-20) Creatinine 0.7 mg/dL (0.6-1.0) 0.6 mg/dL (0.6-1.0) Estimated GFR (Cockcroft-Gault) 90.5 108.1 BUN/Creatinine Ratio 16 (6-20) Glucose Level 91 mg/dL (70-99) 104 mg/dL (70-99) Calcium Level 8.2 mg/dL (8.5-10.1) 7.7 mg/dL (8.5-10.1) Total Bilirubin 0.2 mg/dL (0.2-1.0) Aspartate Amino Transf (AST/SGOT) 29 U/L (15-37) Alanine Aminotransferase (ALT/SGPT) 40 U/L (14-59) Alkaline Phosphatase 75 U/L (46-116) Troponin I Quantitative < 0.017 ng/mL (0.000-0.055) Total Protein 7.2 g/dL (6.4-8.2) Albumin 3.4 g/dL (3.4-5.0) Albumin/Globulin Ratio 0.9 (1.0-1.7) Ethyl Alcohol Level < 10 mg/dL (0-10) Assessment/Plan Assessment/Plan Assessment: 44y with severe anemia and vaginal bleeding Recommendations: 1.) Menorrhagia discussed tx options with pt including medical options like hormonal contraception and surgical options like ablation or hysterectomy. Discussed a bridge tx like Provera until she could establish insurance for a more definitive option. Ultimately decided on a 5 day course Provera followed by out pt management. Even though the pt has maintained monthly cycles, she may need endometrial sampling prior to surgery. This can be done as an outpt. 2.) Severe anemia Hgb 6.7 -> 7.0, s/p 1U pRBC 3.) VB still bleeding, will give Provera to slow down bleeding 4.) Tob use 5.) Will continue to follow STACI CHURCHILL MD Jan 11, 2020 11:00
--- NOTE | 2020-01-11 11:29 | PDOC ---
[facility] PROGRESS NOTE Date of Service DOS: DATE: 01/11/20 TIME: 11:28 Chief Complaint Chief Complaint Menorrhagia decided on a 5 day course Provera followed by out pt management. Even though the pt has maintained monthly cycles, she may need endometrial sampling prior to surgery. This can be done as an outpt. Severe anemia Hgb 6.7 -> 7.0, s/p 1U pRBC VB still bleeding, will give Provera to slow down bleeding Tob use - counseled on cessation History of Present Illness History of Present Illness Ms Christianson is a 44 yo female who has had heavy vaginal bleeding since December 28. She has a known previous history of dysfunctional uterine bleeding Her hemoglobin today is 6.7-->7. Feeling dizzy and lightheaded. Seen by amusement ride inspector, plan as above. Will repeat CBC in AM prior to d/c home on provera Vitals/I&O Vitals/I&O: Vital Signs Date Time Temp Pulse Resp B/P (MAP) Pulse Ox O2 Delivery O2 Flow Rate FiO2 01/11/20 10:57 97.6 71 16 107/59 (75) 97 Room Air 97.6 I & O 01/10/20 01/10/20 01/11/20 15:00 23:00 07:00 Intake Total 1315 ml Output Total 150 ml Balance 1315 ml -150 ml Physical Exam General: Alert, Oriented X3, Cooperative, No acute distress Heart: Regular rate, Normal S1, Normal S2, No murmurs Abdomen: Normal bowel sounds, Soft, No tenderness, No hepatosplenomegaly, No masses Extremities: No clubbing, No cyanosis, No edema, Normal pulses, No tenderness/swelling Skin: No rashes, No breakdown Labs Labs: Laboratory Tests Test 01/10/20 16:55 01/10/20 17:01 01/10/20 17:02 01/11/20 07:45 Urine Collection Type Unknown Urine Color Red Urine Clarity Bloody Urine pH (<5.0-8.0) Urine Specific [place] (1.000-1.030) Urine Protein mg/dL (NEG-TRACE) Urine Glucose (UA) mg/dL (NEG) Urine Ketones (Stick) mg/dL (NEG) Urine Blood (NEG) Urine Nitrite (NEG) Urine Bilirubin (NEG) Urine Urobilinogen Dipstick mg/dL (0.2 mg/dL) Urine Leukocyte Esterase (NEG) Urine RBC Tntc /HPF (0-2) Urine WBC 1-4 /HPF (0-4) Urine Squamous Epithelial Cells Mod /LPF Urine Bacteria Few /HPF (0-FEW) Urine Mucus Marked /LPF Bedside Urine HCG, Qualitative Hcg negative (Negative) White Blood Count 6.8 x10^3/uL (4.0-11.0) Red Blood Count 3.52 x10^6/uL (3.50-5.40) Hemoglobin 6.7 g/dL (12.0-15.5) 7.0 g/dL (12.0-15.5) Hematocrit 22.4 % (36.0-47.0) 22.9 % (36.0-47.0) Mean Corpuscular Volume 64 fL (79-100) Mean Corpuscular Hemoglobin 19 pg (25-35) Mean Corpuscular Hemoglobin Concent 30 g/dL (31-37) 31 g/dL (31-37) Red Cell Distribution Width 20.3 % (11.5-14.5) Platelet Count 408 x10^3/uL (140-400) Neutrophils (%) (Auto) 61 % (31-73) Lymphocytes (%) (Auto) 26 % (24-48) Monocytes (%) (Auto) 11 % (0-9) Eosinophils (%) (Auto) 1 % (0-3) Basophils (%) (Auto) 1 % (0-3) Neutrophils # (Auto) 4.2 x10^3/uL (1.8-7.7) Lymphocytes # (Auto) 1.8 x10^3/uL (1.0-4.8) Monocytes # (Auto) 0.8 x10^3/uL (0.0-1.1) Eosinophils # (Auto) 0.0 x10^3/uL (0.0-0.7) Basophils # (Auto) 0.0 x10^3/uL (0.0-0.2) Platelet Estimate Adequate (ADEQUATE) Polychromasia Slight Hypochromasia Mod Anisocytosis Mod Microcytosis Marked Prothrombin Time 12.9 SEC (11.7-14.0) Prothromb Time International Ratio 1.0 (0.8-1.1) Sodium Level 136 mmol/L (136-145) 140 mmol/L (136-145) Potassium Level 3.4 mmol/L (3.5-5.1) 3.6 mmol/L (3.5-5.1) Chloride Level 103 mmol/L (98-107) 108 mmol/L (98-107) Carbon Dioxide Level 27 mmol/L (21-32) 25 mmol/L (21-32) Anion Gap 6 (6-14) 7 (6-14) Blood Urea Nitrogen 11 mg/dL (7-20) 13 mg/dL (7-20) Creatinine 0.7 mg/dL (0.6-1.0) 0.6 mg/dL (0.6-1.0) Estimated GFR (Cockcroft-Gault) 90.5 108.1 BUN/Creatinine Ratio 16 (6-20) Glucose Level 91 mg/dL (70-99) 104 mg/dL (70-99) Calcium Level 8.2 mg/dL (8.5-10.1) 7.7 mg/dL (8.5-10.1) Total Bilirubin 0.2 mg/dL (0.2-1.0) Aspartate Amino Transf (AST/SGOT) 29 U/L (15-37) Alanine Aminotransferase (ALT/SGPT) 40 U/L (14-59) Alkaline Phosphatase 75 U/L (46-116) Troponin I Quantitative < 0.017 ng/mL (0.000-0.055) Total Protein 7.2 g/dL (6.4-8.2) Albumin 3.4 g/dL (3.4-5.0) Albumin/Globulin Ratio 0.9 (1.0-1.7) Ethyl Alcohol Level < 10 mg/dL (0-10) Assessment and Plan Assessmemt and Plan Problems Medical Problems: (1) Anemia Status: Acute (2) Dysfunctional uterine bleeding Status: Acute Comment Review of Relevant I have reviewed the following items cecil (where applicable) has been applied. Medications: Current Medications Medications (Trade) Dose Ordered Sig/Abiel Route PRN Reason Start Time Stop Time Status Last Admin Dose Admin Sodium Chloride 1,000 ml @ 1,000 mls/hr Q1H IV 01/10/20 17:06 01/10/20 18:05 DC 01/10/20 17:38 Sodium Chloride 1,000 ml @ 100 mls/hr Q10H IV 01/10/20 18:44 01/11/20 18:43 01/11/20 04:19 Naproxen (Naprosyn) 500 mg PRN BID PRN PO PAIN 01/11/20 04:15 01/11/20 04:18 Justicifation of Admission Dx: Justifications for Admission: Justification of Admission Dx: Yes GARTH GOMEZ MD Jan 11, 2020 11:29
--- NOTE | 2020-01-11 11:35 | NUR ---
SS following for discharge planning. SS reviewed pt chart and discussed with pt RN. Pt is from home and is currently on room air. Pt self pay. Discharge plan is to home when ready. SS will continue to follow for discharge planning.
[2020-01-11 14:59] VITALS: BP 113/59
[2020-01-11] MEDS ORDERED: ONDANSETRON PF 4 MG/2 ML VIAL. IV PRN (15:30)
[2020-01-11 19:00] VITALS: BP 100/60
[2020-01-11 23:00] VITALS: BP 101/48
[2020-01-12 03:00] VITALS: BP 102/50
[2020-01-12 05:31] LABS: BASO % 1 % (0-3); EOS # 0.1 x10^3/uL (0.0-0.7); EOS % 1 % (0-3); HEMATOCRIT 24.1 % (36.0-47.0); HEMOGLOBIN 7.3 g/dL (12.0-15.5); LYMPH # 1.8 x10^3/uL (1.0-4.8); LYMPH % 29 % (24-48); MEAN CORPUSCULAR HEMOGLOBIN 20 pg (25-35); MEAN CORPUSCULAR HGB CONC 31 g/dL (31-37); MEAN CORPUSCULAR VOLUME 67 fL (79-100); MONO # 0.7 x10^3/uL (0.0-1.1); MONO % 11 % (0-9); NEUT # 3.5 x10^3/uL (1.8-7.7); NEUT % 58 % (31-73); PLATELET COUNT 356 x10^3/uL (140-400); RED BLOOD COUNT 3.61 x10^6/uL (3.50-5.40); RED CELL DISTRIBUTION WIDTH 23.1 % (11.5-14.5)
[2020-01-12 05:36] LABS: CREATININE 0.7 mg/dL (0.6-1.0); GFR 90.5; POTASSIUM 3.6 mmol/L (3.5-5.1)
[2020-01-12 07:00] VITALS: BP 92/50
--- NOTE | 2020-01-12 07:35 | PDOC ---
[facility] PROGRESS NOTE Date of Service DOS: DATE: 01/12/20 TIME: 07:35 Chief Complaint Chief Complaint Menorrhagia decided on a 5 day course Provera followed by out pt management. Even though the pt has maintained monthly cycles, she may need endometrial sampling prior to surgery. This can be done as an outpt. Severe anemia Hgb 6.7 -> 7.0, s/p 1U pRBC VB still bleeding, will give Provera to slow down bleeding Tob use - counseled on cessation History of Present Illness History of Present Illness Ms Christianson is a 44 yo female who has had heavy vaginal bleeding since December 28. She has a known previous history of dysfunctional uterine bleeding 01/10: Her hemoglobin today is 6.7-->7. Feeling dizzy and lightheaded. Seen by mammography technologist, plan as above. Will repeat CBC in AM prior to d/c home on provera. Hb 7.3. Very minimal spotting vaginally. Vital signs stable improved. Vitals/I&O Vitals/I&O: Vital Signs Date Time Temp Pulse Resp B/P (MAP) Pulse Ox O2 Delivery O2 Flow Rate FiO2 01/12/20 03:00 98.0 61 18 102/50 (67) 96 Room Air 98.0 I & O 01/11/20 01/11/20 01/12/20 15:00 23:00 07:00 Intake Total 245 ml 300 ml Balance 245 ml 300 ml Physical Exam General: Alert, Oriented X3, Cooperative, No acute distress Heart: Regular rate, Normal S1, Normal S2, No murmurs Abdomen: Normal bowel sounds, Soft, No tenderness, No hepatosplenomegaly, No masses Extremities: No clubbing, No cyanosis, No edema, Normal pulses, No tenderness/swelling Skin: No rashes, No breakdown Labs Labs: Laboratory Tests Test 01/11/20 07:45 01/12/20 04:00 Hemoglobin 7.0 g/dL (12.0-15.5) 7.3 g/dL (12.0-15.5) Hematocrit 22.9 % (36.0-47.0) 24.1 % (36.0-47.0) Mean Corpuscular Hemoglobin Concent 31 g/dL (31-37) 31 g/dL (31-37) Sodium Level 140 mmol/L (136-145) 139 mmol/L (136-145) Potassium Level 3.6 mmol/L (3.5-5.1) 3.6 mmol/L (3.5-5.1) Chloride Level 108 mmol/L (98-107) 107 mmol/L (98-107) Carbon Dioxide Level 25 mmol/L (21-32) 26 mmol/L (21-32) Anion Gap 7 (6-14) 6 (6-14) Blood Urea Nitrogen 13 mg/dL (7-20) 11 mg/dL (7-20) Creatinine 0.6 mg/dL (0.6-1.0) 0.7 mg/dL (0.6-1.0) Estimated GFR (Cockcroft-Gault) 108.1 90.5 Glucose Level 104 mg/dL (70-99) 86 mg/dL (70-99) Calcium Level 7.7 mg/dL (8.5-10.1) 8.0 mg/dL (8.5-10.1) White Blood Count 6.0 x10^3/uL (4.0-11.0) Red Blood Count 3.61 x10^6/uL (3.50-5.40) Mean Corpuscular Volume 67 fL (79-100) Mean Corpuscular Hemoglobin 20 pg (25-35) Red Cell Distribution Width 23.1 % (11.5-14.5) Platelet Count 356 x10^3/uL (140-400) Neutrophils (%) (Auto) 58 % (31-73) Lymphocytes (%) (Auto) 29 % (24-48) Monocytes (%) (Auto) 11 % (0-9) Eosinophils (%) (Auto) 1 % (0-3) Basophils (%) (Auto) 1 % (0-3) Neutrophils # (Auto) 3.5 x10^3/uL (1.8-7.7) Lymphocytes # (Auto) 1.8 x10^3/uL (1.0-4.8) Monocytes # (Auto) 0.7 x10^3/uL (0.0-1.1) Eosinophils # (Auto) 0.1 x10^3/uL (0.0-0.7) Basophils # (Auto) 0.0 x10^3/uL (0.0-0.2) Assessment and Plan Assessmemt and Plan Problems Medical Problems: (1) Anemia Status: Acute (2) Dysfunctional uterine bleeding Status: Acute Comment Review of Relevant I have reviewed the following items cecil (where applicable) has been applied. Medications: Current Medications Medications (Trade) Dose Ordered Sig/Abiel Route PRN Reason Start Time Stop Time Status Last Admin Dose Admin Medroxyprogesterone Acetate (Provera) 5 mg DAILY PO 01/11/20 11:00 01/11/20 11:37 Justicifation of Admission Dx: Justifications for Admission: Justification of Admission Dx: Yes GARTH GOMEZ MD Jan 12, 2020 07:35
[2020-01-12] MEDS ORDERED: POTASSIUM CHLORIDE 20 MEQ TABLET.ER. PO ONE (08:00)
[2020-01-12] MEDS ORDERED: MEDR2.5T28 PO (10:06)
--- NOTE | 2020-01-12 10:09 | PDOC3 ---
Discharge Summary Visit Information Date of Admission: Jan 10, 2020 Date of Discharge: Jan 12, 2020 Admitting Diagnosis: Acute anemia Final Diagnosis Problems Medical Problems: (1) Anemia Status: Acute (2) Dysfunctional uterine bleeding Status: Acute Brief Hospital Course Allergies Allergies Coded Allergies Type Severity Reaction Last Updated Verified Penicillins Allergy Intermediate 03/18/19 Yes Vital Signs Vital Signs Date Time Temp Pulse Resp B/P (MAP) Pulse Ox O2 Delivery O2 Flow Rate FiO2 01/12/20 08:00 Room Air 01/12/20 07:00 97.8 59 18 92/50 (64) 99 97.8 Lab Results Laboratory Tests Test 01/10/20 16:55 01/10/20 17:01 01/10/20 17:02 01/11/20 07:45 Urine Collection Type Unknown Urine Color Red Urine Clarity Bloody Urine pH (<5.0-8.0) Urine Specific [place] (1.000-1.030) Urine Protein mg/dL (NEG-TRACE) Urine Glucose (UA) mg/dL (NEG) Urine Ketones (Stick) mg/dL (NEG) Urine Blood (NEG) Urine Nitrite (NEG) Urine Bilirubin (NEG) Urine Urobilinogen Dipstick mg/dL (0.2 mg/dL) Urine Leukocyte Esterase (NEG) Urine RBC Tntc /HPF (0-2) Urine WBC 1-4 /HPF (0-4) Urine Squamous Epithelial Cells Mod /LPF Urine Bacteria Few /HPF (0-FEW) Urine Mucus Marked /LPF Bedside Urine HCG, Qualitative Hcg negative (Negative) White Blood Count 6.8 x10^3/uL (4.0-11.0) Red Blood Count 3.52 x10^6/uL (3.50-5.40) Hemoglobin 6.7 g/dL (12.0-15.5) 7.0 g/dL (12.0-15.5) Hematocrit 22.4 % (36.0-47.0) 22.9 % (36.0-47.0) Mean Corpuscular Volume 64 fL (79-100) Mean Corpuscular Hemoglobin 19 pg (25-35) Mean Corpuscular Hemoglobin Concent 30 g/dL (31-37) 31 g/dL (31-37) Red Cell Distribution Width 20.3 % (11.5-14.5) Platelet Count 408 x10^3/uL (140-400) Neutrophils (%) (Auto) 61 % (31-73) Lymphocytes (%) (Auto) 26 % (24-48) Monocytes (%) (Auto) 11 % (0-9) Eosinophils (%) (Auto) 1 % (0-3) Basophils (%) (Auto) 1 % (0-3) Neutrophils # (Auto) 4.2 x10^3/uL (1.8-7.7) Lymphocytes # (Auto) 1.8 x10^3/uL (1.0-4.8) Monocytes # (Auto) 0.8 x10^3/uL (0.0-1.1) Eosinophils # (Auto) 0.0 x10^3/uL (0.0-0.7) Basophils # (Auto) 0.0 x10^3/uL (0.0-0.2) Platelet Estimate Adequate (ADEQUATE) Polychromasia Slight Hypochromasia Mod Anisocytosis Mod Microcytosis Marked Prothrombin Time 12.9 SEC (11.7-14.0) Prothromb Time International Ratio 1.0 (0.8-1.1) Sodium Level 136 mmol/L (136-145) 140 mmol/L (136-145) Potassium Level 3.4 mmol/L (3.5-5.1) 3.6 mmol/L (3.5-5.1) Chloride Level 103 mmol/L (98-107) 108 mmol/L (98-107) Carbon Dioxide Level 27 mmol/L (21-32) 25 mmol/L (21-32) Anion Gap 6 (6-14) 7 (6-14) Blood Urea Nitrogen 11 mg/dL (7-20) 13 mg/dL (7-20) Creatinine 0.7 mg/dL (0.6-1.0) 0.6 mg/dL (0.6-1.0) Estimated GFR (Cockcroft-Gault) 90.5 108.1 BUN/Creatinine Ratio 16 (6-20) Glucose Level 91 mg/dL (70-99) 104 mg/dL (70-99) Calcium Level 8.2 mg/dL (8.5-10.1) 7.7 mg/dL (8.5-10.1) Total Bilirubin 0.2 mg/dL (0.2-1.0) Aspartate Amino Transf (AST/SGOT) 29 U/L (15-37) Alanine Aminotransferase (ALT/SGPT) 40 U/L (14-59) Alkaline Phosphatase 75 U/L (46-116) Troponin I Quantitative < 0.017 ng/mL (0.000-0.055) Total Protein 7.2 g/dL (6.4-8.2) Albumin 3.4 g/dL (3.4-5.0) Albumin/Globulin Ratio 0.9 (1.0-1.7) Ethyl Alcohol Level < 10 mg/dL (0-10) Test 01/12/20 04:00 White Blood Count 6.0 x10^3/uL (4.0-11.0) Red Blood Count 3.61 x10^6/uL (3.50-5.40) Hemoglobin 7.3 g/dL (12.0-15.5) Hematocrit 24.1 % (36.0-47.0) Mean Corpuscular Volume 67 fL (79-100) Mean Corpuscular Hemoglobin 20 pg (25-35) Mean Corpuscular Hemoglobin Concent 31 g/dL (31-37) Red Cell Distribution Width 23.1 % (11.5-14.5) Platelet Count 356 x10^3/uL (140-400) Neutrophils (%) (Auto) 58 % (31-73) Lymphocytes (%) (Auto) 29 % (24-48) Monocytes (%) (Auto) 11 % (0-9) Eosinophils (%) (Auto) 1 % (0-3) Basophils (%) (Auto) 1 % (0-3) Neutrophils # (Auto) 3.5 x10^3/uL (1.8-7.7) Lymphocytes # (Auto) 1.8 x10^3/uL (1.0-4.8) Monocytes # (Auto) 0.7 x10^3/uL (0.0-1.1) Eosinophils # (Auto) 0.1 x10^3/uL (0.0-0.7) Basophils # (Auto) 0.0 x10^3/uL (0.0-0.2) Sodium Level 139 mmol/L (136-145) Potassium Level 3.6 mmol/L (3.5-5.1) Chloride Level 107 mmol/L (98-107) Carbon Dioxide Level 26 mmol/L (21-32) Anion Gap 6 (6-14) Blood Urea Nitrogen 11 mg/dL (7-20) Creatinine 0.7 mg/dL (0.6-1.0) Estimated GFR (Cockcroft-Gault) 90.5 Glucose Level 86 mg/dL (70-99) Calcium Level 8.0 mg/dL (8.5-10.1) Laboratory Tests Test 01/12/20 04:00 White Blood Count 6.0 x10^3/uL (4.0-11.0) Red Blood Count 3.61 x10^6/uL (3.50-5.40) Hemoglobin 7.3 g/dL (12.0-15.5) Hematocrit 24.1 % (36.0-47.0) Mean Corpuscular Volume 67 fL (79-100) Mean Corpuscular Hemoglobin 20 pg (25-35) Mean Corpuscular Hemoglobin Concent 31 g/dL (31-37) Red Cell Distribution Width 23.1 % (11.5-14.5) Platelet Count 356 x10^3/uL (140-400) Neutrophils (%) (Auto) 58 % (31-73) Lymphocytes (%) (Auto) 29 % (24-48) Monocytes (%) (Auto) 11 % (0-9) Eosinophils (%) (Auto) 1 % (0-3) Basophils (%) (Auto) 1 % (0-3) Neutrophils # (Auto) 3.5 x10^3/uL (1.8-7.7) Lymphocytes # (Auto) 1.8 x10^3/uL (1.0-4.8) Monocytes # (Auto) 0.7 x10^3/uL (0.0-1.1) Eosinophils # (Auto) 0.1 x10^3/uL (0.0-0.7) Basophils # (Auto) 0.0 x10^3/uL (0.0-0.2) Sodium Level 139 mmol/L (136-145) Potassium Level 3.6 mmol/L (3.5-5.1) Chloride Level 107 mmol/L (98-107) Carbon Dioxide Level 26 mmol/L (21-32) Anion Gap 6 (6-14) Blood Urea Nitrogen 11 mg/dL (7-20) Creatinine 0.7 mg/dL (0.6-1.0) Estimated GFR (Cockcroft-Gault) 90.5 Glucose Level 86 mg/dL (70-99) Calcium Level 8.0 mg/dL (8.5-10.1) Brief Hospital Course Ms Christianson is a 44 yo female who has had heavy vaginal bleeding since December 28. She has a known previous history of dysfunctional uterine bleeding 01/10: Her hemoglobin today is 6.7-->7. Feeling dizzy and lightheaded. Seen by utility bagger, plan as above. Hb 7.3. Very minimal spotting vaginally. Vital signs stable improved. Consults: industrial service technician Imaging: Pelvic US Uterus measures 10.3 x 7.9 x 6.0 cm. Endometrium measures 1 cm in thickness with a small amount of fluid in the endometrium. Right ovary measures 4.4 x 2.2 x 2.5 cm. Left ovary measures 3.3 x 1.8 x 2.2 cm. Vascular flow identified within the ovaries bilaterally. No free fluid. IMPRESSION: Endometrium measures 1 cm in thickness with a small amount of fluid in the endometrium. Correlate with phase of cycle/menopausal status. Consider short- term follow-up imaging in 2 weeks to reassess. Problem list: Menorrhagia decided on a 5 day course Provera followed by out pt management. Even though the pt has maintained monthly cycles, she may need endometrial sampling prior to surgery. This can be done as an outpt. Severe anemia Hgb 6.7 -> 7.0, s/p 1U pRBC VB still bleeding, will give Provera to slow down bleeding Tob use - counseled on cessation Greater than 30 minutes spent on d/c Discharge Information Condition at Discharge: Improved Follow Up: Weeks (1) Disposition/Orders: D/C to Home Scheduled Ferrous Sulfate (Iron) 325 Mg Tablet, 325 MG PO DAILY for supplement, (Reported) Entered as Reported by: MARIALUISA DOUGLAS on 01/10/202322 Last Action: New Order on 01/10/202322 by MARIALUISA DOUGLAS Medroxyprogesterone Acetate (Medroxyprogesterone Acetate) 2.5 Mg Tablet, 5 MG PO DAILY for Dysfunctional uterine bleeding for 90 Days, #180 Ref 1 Prescribed by: GARTH GOMEZ MD on 01/12/20 1006 Multivitamin (Multivitamins) 1 Each Tablet, 1 TAB PO DAILY for supplement, #90 Ref 3 (Reported) Entered as Reported by: ROLA BAIG on 03/19/197 Last Action: Reviewed on 01/10/20 202 by MARIALUISA DOUGLAS Justicifation of Admission Dx: Justifications for Admission: Justification of Admission Dx: Yes GARTH GOMEZ MD Jan 12, 2020 10:09
--- NOTE | 2020-01-12 10:32 | PDOC ---
[facility] PROGRESS NOTE Date of Service: DATE: 01/12/20 TIME: 10:32 Subjective: Pt reports minimal bleeding Objective: Vital Signs: Vital Signs Date Time Temp Pulse Resp B/P (MAP) Pulse Ox O2 Delivery O2 Flow Rate FiO2 01/11/20 07:00 97.8 70 16 96/50 (65) 98 Room Air 97.8 Vital Signs Date Time Temp Pulse Resp B/P (MAP) Pulse Ox O2 Delivery O2 Flow Rate FiO2 01/12/20 08:00 Room Air 01/12/20 07:00 97.8 59 18 92/50 (64) 99 97.8 Labs: Laboratory Tests Test 01/12/20 04:00 White Blood Count 6.0 x10^3/uL (4.0-11.0) Red Blood Count 3.61 x10^6/uL (3.50-5.40) Hemoglobin 7.3 g/dL (12.0-15.5) L Hematocrit 24.1 % (36.0-47.0) L Mean Corpuscular Volume 67 fL (79-100) L Mean Corpuscular Hemoglobin 20 pg (25-35) L Mean Corpuscular Hemoglobin Concent 31 g/dL (31-37) Red Cell Distribution Width 23.1 % (11.5-14.5) H Platelet Count 356 x10^3/uL (140-400) Neutrophils (%) (Auto) 58 % (31-73) Lymphocytes (%) (Auto) 29 % (24-48) Monocytes (%) (Auto) 11 % (0-9) H Eosinophils (%) (Auto) 1 % (0-3) Basophils (%) (Auto) 1 % (0-3) Neutrophils # (Auto) 3.5 x10^3/uL (1.8-7.7) Lymphocytes # (Auto) 1.8 x10^3/uL (1.0-4.8) Monocytes # (Auto) 0.7 x10^3/uL (0.0-1.1) Eosinophils # (Auto) 0.1 x10^3/uL (0.0-0.7) Basophils # (Auto) 0.0 x10^3/uL (0.0-0.2) Sodium Level 139 mmol/L (136-145) Potassium Level 3.6 mmol/L (3.5-5.1) Chloride Level 107 mmol/L (98-107) Carbon Dioxide Level 26 mmol/L (21-32) Anion Gap 6 (6-14) Blood Urea Nitrogen 11 mg/dL (7-20) Creatinine 0.7 mg/dL (0.6-1.0) Estimated GFR (Cockcroft-Gault) 90.5 Glucose Level 86 mg/dL (70-99) Calcium Level 8.0 mg/dL (8.5-10.1) L Laboratory Tests 01/12/20 04:00 Laboratory Tests 01/12/20 04:00 Laboratory Tests 01/12/20 04:00 Physical Exam: GENERAL: No apparent distress. Alert and oriented. HEENT: Head normocephalic, atraumatic. NECK: Supple LUNGS: Clear to auscultation. HEART: RRR, S1, S2 present, pulses intact ABDOMEN: Soft, positive bowel sounds. EXTREMITIES: No cyanosis or edema. NEUROLOGIC: Normal speech, normal tone PSYCHIATRIC: Normal affect, normal mood. SKIN: No ulceration. Assessment & Plan: A/P 44y with severe anemia and vaginal bleeding 1.) Menorrhagia improved bleeding with Provera, will f/u ion the office for residential solution. 2.) Severe anemia Hgb 6.7 -> 7.0 -> 7.3 3.) Tob use 5.) Follow in the office STACI CHURCHILL MD Jan 12, 2020 10:32
== END 2020-01-12 11:54 | disposition home or self-care (01) | DRG 812 ==
LOC: ER 16:28 → 2 NORTH 18:20
PROVIDERS: ADMIT Internal Medicine; ATTEND Internal Medicine
PROC: 30233N1 Transfusion of Nonautologous Red Blood Cells into Peripheral Vein, Percutaneous Approach (ICD-10-PCS; principal; 2020-01-10)
DX: D64.9 Anemia, unspecified (principal); N92.0 Excessive and frequent menstruation with regular cycle; N93.8 Other specified abnormal uterine and vaginal bleeding; F12.90 Cannabis use, unspecified, uncomplicated; Z72.0 Tobacco use; Z78.0 Asymptomatic menopausal state; Z83.3 Family history of diabetes mellitus; Z90.710 Acquired absence of both cervix and uterus; Z79.899 Other long term (current) drug therapy
CPT/HCPCS: 36415; 76830; 76856; 80048; 80053; 81001; 81025; 84484; 85014; 85018; 85025; 85610; 86850; 86900; 86901; 86920; 93005; 96360; 99285; G0480; J7030; P9016; G0378

== ENCOUNTER 2020-01-17 19:05 | Emergency (ER) | payer SELFPAY ==
[~2020-01-17] VITALS: Ht 172.7 cm; Wt 83.6 kg
[~2020-01-17 19:05] MED LIST changes: +FERR-36 PO
[2020-01-17 19:50] LABS: BASO # 0.1 x10^3/uL (0.0-0.2); BASO % 1 % (0-3); EOS % 0 % (0-3); HEMATOCRIT 28.3 % (36.0-47.0); HEMOGLOBIN 8.7 g/dL (12.0-15.5); LYMPH # 1.5 x10^3/uL (1.0-4.8); LYMPH % 19 % (24-48); MEAN CORPUSCULAR HEMOGLOBIN 20 pg (25-35); MEAN CORPUSCULAR HGB CONC 31 g/dL (31-37); MEAN CORPUSCULAR VOLUME 66 fL (79-100); MONO # 0.8 x10^3/uL (0.0-1.1); MONO % 10 % (0-9); NEUT # 5.5 x10^3/uL (1.8-7.7); NEUT % 70 % (31-73); PLATELET COUNT 395 x10^3/uL (140-400); RED BLOOD COUNT 4.32 x10^6/uL (3.50-5.40); RED CELL DISTRIBUTION WIDTH 23.4 % (11.5-14.5); WHITE BLOOD COUNT 7.9 x10^3/uL (4.0-11.0)
[2020-01-17 19:51] LABS: BILIRUBIN,URINE NEGATIVE (NEG); CLARITY,URINE CLEAR; COLOR,URINE YELLOW; NITRITE,URINE NEGATIVE (NEG); PH,URINE 5.5 (<5.0-8.0); PROTEIN,URINE 30 mg/dL (NEG-TRACE)
[2020-01-17 19:58] LABS: RBC,URINE TNTC /HPF (0-2); SQUAMOUS EPITHELIAL CELL,UR FEW /LPF
[2020-01-17 19:59] LABS: BACTERIA,URINE 0 /HPF (0-FEW); WBC,URINE OCC /HPF (0-4)
[2020-01-17 19:59] LABS: CALCIUM 8.8 mg/dL (8.5-10.1); CREATININE 0.7 mg/dL (0.6-1.0); GFR 90.5; POTASSIUM 3.2 mmol/L (3.5-5.1)
--- NOTE | 2020-01-17 20:05 | PHYS DOC ---
Past Medical History Past Medical History: Cancer, Other Additional Past Medical Histor: "uterine tumor" (PRIYANK FARRELL APRN) Past Surgical History: No Surgical History Additional Past Surgical Histo: TUMOR REMOVED 2016 (PRIYANK FARRELL APRN) Smoking Status: Current Some Day Smoker Alcohol Use: Heavy Drug Use: Marijuana (PRIYANK FARRELL APRN) General Adult EDM: Chief Complaint: VAGINAL BLEEDING HPI: HPI: Patient is a 44 year old female who presents to the ER with complaints of vaginal bleeding heavily since 12/28/19. Patient states she was given blood here last week and was admitted because of the bleeding. She states that she was unable to fill the medication that was prescribed to her because she cannot afford it. She reports continued heavy vaginal bleeding. Patient states since 10:00 this morning she has saturated at least 3 pads. She denies any nausea, vomiting, diarrhea, abdominal pain, back pain, fever, cough, shortness of breath, or wheezing. Patient reports that she feels dizzy with position changes. She currently denies pain but states that she does have intermittent pelvic cramping. (PRIYANK FARRELL APRN) Review of Systems: Review of Systems: Constitutional: Denies fever or chills. [] HENT: Denies nasal congestion or sore throat. [] Respiratory: Denies cough or shortness of breath. [] Cardiovascular: Denies chest pain or edema. [] GI: Denies vomiting, bloody stools or diarrhea. [] : Denies dysuria; see HPI Musculoskeletal: Denies back pain or joint pain. [] Integument: Denies rash. [] Neurologic: Denies headache, see HPI Psychiatric: Denies depression or anxiety. [] (PRIYANK FARRELL APRN) Heart Score: Risk Factors: Risk Factors: DM, Current or recent (<one month) smoker, HTN, HLP, family history of CAD, obesity. Risk Scores: Score 0 - 3: 2.5% MACE over next 6 weeks - Discharge Home Score 4 - 6: 20.3% MACE over next 6 weeks - Admit for Clinical Observation Score 7 - 10: 72.7% MACE over next 6 weeks - Early Invasive Strategies (PRIYANK FARRELL APRN) Allergies: Allergies: Allergies Coded Allergies Type Severity Reaction Last Updated Verified Penicillins Allergy Intermediate 03/18/19 Yes (PRIYANK FARRELL STUDIO MUSICIAN) Physical Exam: PE: Constitutional: Well developed, well nourished, no acute distress, non-toxic appearance. HENT: Normocephalic, atraumatic, bilateral external ears normal, nose normal. Eyes: PERRLA, EOMI, conjunctiva normal, no discharge. Neck: Normal range of motion, no stridor. Cardiovascular: Heart rate regular rhythm Lungs & Thorax: Respirations even and unlabored, no retractions, no respiratory distress Pelvic Exam: Cook Helper Vegetable present [place] RN Abdomen: Nontender, soft External Genitalia: Normal Skin Speculum: Normal vaginal mucosa, moderate flow bloody cervical discharge with a clot present in the center of the OS Bimanual: Not done Skin: Warm, dry, no erythema, no rash. Extremities: No cyanosis, ROM intact, no edema. Neurologic: Alert and oriented X 3, no focal deficits noted. Psychologic: Affect normal, judgement normal, mood normal. (PRIYANK FARRELL STUDIO MUSICIAN) Current Patient Data: Labs: Laboratory Tests Test 01/17/20 19:30 01/17/20 19:40 01/17/20 19:48 Urine Collection Type Unknown Urine Color Yellow Urine Clarity Clear Urine pH 5.5 (<5.0-8.0) Urine Specific [place] 1.025 (1.000-1.030) Urine Protein 30 mg/dL (NEG-TRACE) Urine Glucose (UA) Negative mg/dL (NEG) Urine Ketones (Stick) Negative mg/dL (NEG) Urine Blood Large (NEG) Urine Nitrite Negative (NEG) Urine Bilirubin Negative (NEG) Urine Urobilinogen Dipstick 1.0 mg/dL (0.2 mg/dL) Urine Leukocyte Esterase Negative (NEG) Urine RBC Tntc /HPF (0-2) Urine WBC Occ /HPF (0-4) Urine Squamous Epithelial Cells Few /LPF Urine Bacteria 0 /HPF (0-FEW) Urine Mucus Mod /LPF White Blood Count 7.9 x10^3/uL (4.0-11.0) Red Blood Count 4.32 x10^6/uL (3.50-5.40) Hemoglobin 8.7 g/dL (12.0-15.5) L Hematocrit 28.3 % (36.0-47.0) L Mean Corpuscular Volume 66 fL (79-100) L Mean Corpuscular Hemoglobin 20 pg (25-35) L Mean Corpuscular Hemoglobin Concent 31 g/dL (31-37) Red Cell Distribution Width 23.4 % (11.5-14.5) H Platelet Count 395 x10^3/uL (140-400) Neutrophils (%) (Auto) 70 % (31-73) Lymphocytes (%) (Auto) 19 % (24-48) L Monocytes (%) (Auto) 10 % (0-9) H Eosinophils (%) (Auto) 0 % (0-3) Basophils (%) (Auto) 1 % (0-3) Neutrophils # (Auto) 5.5 x10^3/uL (1.8-7.7) Lymphocytes # (Auto) 1.5 x10^3/uL (1.0-4.8) Monocytes # (Auto) 0.8 x10^3/uL (0.0-1.1) Eosinophils # (Auto) 0.0 x10^3/uL (0.0-0.7) Basophils # (Auto) 0.1 x10^3/uL (0.0-0.2) Platelet Estimate Pending Sodium Level 141 mmol/L (136-145) Potassium Level 3.2 mmol/L (3.5-5.1) L Chloride Level 104 mmol/L (98-107) Carbon Dioxide Level 26 mmol/L (21-32) Anion Gap 11 (6-14) Blood Urea Nitrogen 16 mg/dL (7-20) Creatinine 0.7 mg/dL (0.6-1.0) Estimated GFR (Cockcroft-Gault) 90.5 BUN/Creatinine Ratio 23 (6-20) H Glucose Level 123 mg/dL (70-99) H Calcium Level 8.8 mg/dL (8.5-10.1) Total Bilirubin Pending Aspartate Amino Transferase (AST) Pending Alanine Aminotransferase (ALT) Pending Alkaline Phosphatase Pending Total Protein Pending Albumin Pending Albumin/Globulin Ratio Pending POC Urine HCG, Qualitative Hcg negative (Negative) Laboratory Tests 01/17/20 19:40 Laboratory Tests 01/17/20 19:40 Vital Signs: Vital Signs Date Time Temp Pulse Resp B/P (MAP) Pulse Ox O2 Delivery O2 Flow Rate FiO2 01/17/20 19:25 98.2 93 22 111/59 (76) 100 Room Air 98.2 (PRIYANK FARRELL APRN) EKG: EKG: [] (PRIYANK FARRELL APRN) Radiology/Procedures: Radiology/Procedures: [] (PRIYANK FARRELL APRN) Course & Med Decision Making: Course & Med Decision Making Pertinent Labs and Imaging studies reviewed. (See chart for details) 2005- Spoke with Dr. Aburto about continued vaginal bleeding. Will give patient Depoprovera 150 mg IM and instruct her to follow up in the office for D&C as recommended by Dr. Aburto. PT's hemoglobin today is 8.7 previously was 7.3. I informed the patient of this plan, the patient is in agreement, will provide patient with the information for follow-up. Encouraged patient to return to the emergency room if symptoms worsen. Patient verbalized an understanding of home care, medications, follow-up, and return to ED instructions and was in agreement with the plan of care. (PRIYANK FARRELL APRN) Dragon Disclaimer: Dragon Disclaimer: This electronic medical record was generated, in whole or in part, using a voice recognition dictation system. (PRIYANK FARRELL APRN) Departure Departure Impression: Primary Impression: Dysfunctional uterine bleeding Disposition: HOME, SELF-CARE Condition: STABLE Referrals: VAUGHN CRAWFORD MD Patient Instructions: Uterine Bleeding, Dysfunctional, [id number] Additional Instructions: Do not take the medication that was previously prescribed to you. You were given an IM injection of Depo Provera today, this should help to stop your vaginal bleeding. You will still need to follow-up with Dr. Aburto's office for further evaluation and a D&C. Return to the ER if your symptoms worsen. Justicifation of Admission Dx: Justifications for Admission: Justification of Admission Dx: N/A (PRIYANK FARRELL APRN) Attending Signature Attending Signature I have reviewed the PA/WINDOWS INFRASTRUCTURE ENGINEER's note and plan of care. I was available for consultation as needed during the patient's visit in the emergency department. I agree with the clinical impression, plan, and disposition. (STACI LEON DO) PRIYANK FARRELL APRN Jan 17, 2020 20:05 STACI LEON DO Jan 18, 2020 01:47
[2020-01-17 20:06] LABS: ALBUMIN 3.6 g/dL (3.4-5.0); ALBUMIN/GLOBULIN RATIO 0.8 (1.0-1.7); TOTAL BILIRUBIN 0.2 mg/dL (0.2-1.0); TOTAL PROTEIN 7.9 g/dL (6.4-8.2)
[2020-01-17 20:15] LABS: PLT ESTIMATE ADEQUATE (ADEQUATE)
[2020-01-17 20:16] LABS: ANISOCYTOSIS MOD; HYPOCHROMIA MOD; MICROCYTOSIS MARKED
[2020-01-17] MEDS ORDERED: medroxyPROGESTERone IM 150 MG/ML VIAL. IM ONE (21:00)
[2020-01-17] MEDS ORDERED: IV NORMAL SALINE 1000ML BAG 1,000 ML IV ONE (21:15)
[2020-01-17 22:16] VITALS: BP 107/54
== END 2020-01-17 22:28 | disposition home or self-care (01) ==
LOC: ER 19:05
DX: N93.8 Other specified abnormal uterine and vaginal bleeding (principal); F17.200 Nicotine dependence, unspecified, uncomplicated; F10.20 Alcohol dependence, uncomplicated; Y90.9 Presence of alcohol in blood, level not specified; Z88.0 Allergy status to penicillin
CPT/HCPCS: 36415; 80053; 81001; 81025; 85025; 96360; 96372; 99284; J1050; J7030

== ENCOUNTER 2020-02-12 14:42 | Emergency (ER) | payer SELFPAY ==
[~2020-02-12] VITALS: Ht 172.7 cm; Wt 83.6 kg
[2020-02-12 15:29] LABS: BASO # 0.1 x10^3/uL (0.0-0.2); BASO % 1 % (0-3); EOS % 0 % (0-3); HEMATOCRIT 25.5 % (36.0-47.0); HEMOGLOBIN 7.9 g/dL (12.0-15.5); LYMPH # 1.4 x10^3/uL (1.0-4.8); LYMPH % 16 % (24-48); MEAN CORPUSCULAR HEMOGLOBIN 21 pg (25-35); MEAN CORPUSCULAR HGB CONC 31 g/dL (31-37); MEAN CORPUSCULAR VOLUME 67 fL (79-100); MONO # 0.8 x10^3/uL (0.0-1.1); MONO % 10 % (0-9); NEUT # 6.5 x10^3/uL (1.8-7.7); NEUT % 74 % (31-73); PLATELET COUNT 255 x10^3/uL (140-400); RED BLOOD COUNT 3.82 x10^6/uL (3.50-5.40); WHITE BLOOD COUNT 8.9 x10^3/uL (4.0-11.0)
[2020-02-12] MEDS ORDERED: MORPHINE SULFATE 10 MG/ML VIAL. IV ONE (15:30)
[2020-02-12 15:41] LABS: ALBUMIN 3.5 g/dL (3.4-5.0); ALBUMIN/GLOBULIN RATIO 0.8 (1.0-1.7); CALCIUM 8.7 mg/dL (8.5-10.1); CREATININE 0.7 mg/dL (0.6-1.0); GFR 90.5; TOTAL BILIRUBIN 0.4 mg/dL (0.2-1.0); TOTAL PROTEIN 7.7 g/dL (6.4-8.2)
[2020-02-12 15:53] LABS: POTASSIUM 2.8 mmol/L (3.5-5.1)
[2020-02-12] MEDS ORDERED: POTASSIUM CHLORIDE 20 MEQ TABLET.ER. PO ONE ×2 (16:00→16:30)
--- NOTE | 2020-02-12 16:58 | RAD ---
Ultrasound pelvis complete and transvaginal ultrasound pelvis HISTORY: Vaginal bleeding Sonographic examination of the pelvis was performed by transabdominal and endovaginal technique multiple static images were obtained. Ultrasound pelvis complete transabdominal: The uterus measures 12 x 6 11 x 7 cm. The endometrium is seen. The ovaries are not seen. Transvaginal some pelvis: The endometrial of the uterus is heterogeneous and thickened and measures 2 cm in thickness. There are fibroids seen in the largest measures 3.9 cm in diameter. The ovaries are not seen due to overlying bowel gas. IMPRESSION: 1. Fibroid uterus. 2. Abnormal heterogeneous thickened endometrium. Hyperplasia or neoplasia is possible. If unexplained bleeding persists consider biopsy. Electronically signed by: Toño Douglas III, MD (02/12/2020 4:55 PM) [facility]
[2020-02-12 18:12] LABS: ANISOCYTOSIS MOD; HYPOCHROMIA MOD; MICROCYTOSIS MARKED; PLT ESTIMATE ADEQUATE (ADEQUATE); POLYCHROMASIA SLIGHT
[2020-02-12] MEDS ORDERED: HYDR-3164 PO (18:48)
[2020-02-12] MEDS ORDERED: NAPR-514 PO (18:48)
--- NOTE | 2020-02-12 18:48 | PHYS DOC ---
Past Medical History Past Medical History: Anemia, Cancer, Other Additional Past Medical Histor: "uterine tumor", DUB Past Surgical History: No Surgical History Additional Past Surgical Histo: TUMOR REMOVED 2016 Smoking Status: Current Some Day Smoker Alcohol Use: None Drug Use: Marijuana Social History Narrative: DAILY MARIJUANA USE General Adult EDM: Chief Complaint: VAGINAL BLEEDING HPI: HPI: Patient is a 44 year old female with history of anemia, fibroids and dysfunctional uterine bleeding who presents the ED today complaining of vaginal bleeding that began 4 days ago. Patient states she has had this problem for months. She states she tried following up with an [employer] DRIVER but they needed 1500 to do a D&C which she does not have. Patient is also complaining of moderate abdominal cramping type pain. She is also complaining of fatigue. Denies any chance she is . Review of Systems: Review of Systems: Constitutional: Denies fever or chills. [] Eyes: Denies change in visual acuity. [] HENT: Denies nasal congestion or sore throat. [] Respiratory: Denies cough or shortness of breath. [] Cardiovascular: Denies chest pain or edema. [] GI: Reports vaginal bleeding and abdominal pain. Denies nausea, vomiting, bloody stools or diarrhea. [] : Denies dysuria. [] Musculoskeletal: Denies back pain or joint pain. [] Integument: Denies rash. [] Neurologic: Denies headache, focal weakness or sensory changes. [] Psychiatric: Denies depression or anxiety. [] Heart Score: Risk Factors: Risk Factors: DM, Current or recent (<one month) smoker, HTN, HLP, family history of CAD, obesity. Risk Scores: Score 0 - 3: 2.5% MACE over next 6 weeks - Discharge Home Score 4 - 6: 20.3% MACE over next 6 weeks - Admit for Clinical Observation Score 7 - 10: 72.7% MACE over next 6 weeks - Early Invasive Strategies Current Medications: Current Medications Medications (Trade) Dose Ordered Sig/Abiel Start Time Stop Time Status Last Admin Dose Admin Morphine Sulfate (Morphine Sulfate) 5 mg 1X ONCE 02/12/20 15:30 02/12/20 15:32 DC 02/12/20 15:40 5 MG Potassium Chloride (Klor-Con) 40 meq 1X ONCE 02/12/20 16:30 02/12/20 16:31 DC 02/12/20 17:11 40 MEQ Allergies: Allergies: Allergies Coded Allergies Type Severity Reaction Last Updated Verified Penicillins Allergy Intermediate 03/18/19 Yes Physical Exam: PE: Constitutional: Well developed, well nourished, no acute distress, non-toxic appearance. [] HENT: Normocephalic, atraumatic, bilateral external ears normal, oropharynx moist, no oral exudates, nose normal. [] Eyes: PERRLA, EOMI, conjunctiva normal, no discharge. [] Neck: Normal range of motion, no tenderness, supple, no stridor. [] Cardiovascular:Heart rate regular rhythm, no murmur [] Lungs & Thorax: Bilateral breath sounds clear to auscultation [] Abdomen: Bowel sounds normal, soft, no tenderness, no masses, no pulsatile masses. [] Pelvic exam External pelvic appears normal, cervix is partially visualized, it is being obscured by blood which was removed. Cervix appears normal, no adnexal tenderness, no CMT. Skin: Warm, dry, no erythema, no rash. [] Back: No tenderness, no CVA tenderness. [] Extremities: No tenderness, no cyanosis, no clubbing, ROM intact, no edema. [] Neurologic: Alert and oriented X 3, normal motor function, normal sensory function, no focal deficits noted. [] Psychologic: Affect normal, judgement normal, mood normal. [] Current Patient Data: Labs: Laboratory Tests Test 02/12/20 15:20 White Blood Count 8.9 x10^3/uL (4.0-11.0) Red Blood Count 3.82 x10^6/uL (3.50-5.40) Hemoglobin 7.9 g/dL (12.0-15.5) L Hematocrit 25.5 % (36.0-47.0) L Mean Corpuscular Volume 67 fL (79-100) L Mean Corpuscular Hemoglobin 21 pg (25-35) L Mean Corpuscular Hemoglobin Concent 31 g/dL (31-37) Red Cell Distribution Width 22.0 % (11.5-14.5) H Platelet Count 255 x10^3/uL (140-400) Neutrophils (%) (Auto) 74 % (31-73) H Lymphocytes (%) (Auto) 16 % (24-48) L Monocytes (%) (Auto) 10 % (0-9) H Eosinophils (%) (Auto) 0 % (0-3) Basophils (%) (Auto) 1 % (0-3) Neutrophils # (Auto) 6.5 x10^3/uL (1.8-7.7) Lymphocytes # (Auto) 1.4 x10^3/uL (1.0-4.8) Monocytes # (Auto) 0.8 x10^3/uL (0.0-1.1) Eosinophils # (Auto) 0.0 x10^3/uL (0.0-0.7) Basophils # (Auto) 0.1 x10^3/uL (0.0-0.2) Platelet Estimate Adequate (ADEQUATE) Polychromasia Slight Hypochromasia Mod Anisocytosis Mod Microcytosis Marked Sodium Level 140 mmol/L (136-145) Potassium Level 2.8 mmol/L (3.5-5.1) *L Chloride Level 105 mmol/L (98-107) Carbon Dioxide Level 23 mmol/L (21-32) Anion Gap 12 (6-14) Blood Urea Nitrogen 11 mg/dL (7-20) Creatinine 0.7 mg/dL (0.6-1.0) Estimated GFR (Cockcroft-Gault) 90.5 BUN/Creatinine Ratio 16 (6-20) Glucose Level 114 mg/dL (70-99) H Calcium Level 8.7 mg/dL (8.5-10.1) Total Bilirubin 0.4 mg/dL (0.2-1.0) Aspartate Amino Transferase (AST) 24 U/L (15-37) Alanine Aminotransferase (ALT) 30 U/L (14-59) Alkaline Phosphatase 60 U/L (46-116) Total Protein 7.7 g/dL (6.4-8.2) Albumin 3.5 g/dL (3.4-5.0) Albumin/Globulin Ratio 0.8 (1.0-1.7) L Laboratory Tests 02/12/20 15:20 Laboratory Tests 02/12/20 15:20 Vital Signs: Vital Signs Date Time Temp Pulse Resp B/P (MAP) Pulse Ox O2 Delivery O2 Flow Rate FiO2 02/12/20 16:14 16 99 Room Air 02/12/20 14:46 98.1 96 133/64 (87) 98.1 EKG: EKG: [] Radiology/Procedures: Radiology/Procedures: []PROCEDURE: PELVIS W/TV Ultrasound pelvis complete and transvaginal ultrasound pelvis HISTORY: Vaginal bleeding Sonographic examination of the pelvis was performed by transabdominal and endovaginal technique multiple static images were obtained. Ultrasound pelvis complete transabdominal: The uterus measures 12 x 6 11 x 7 cm. The endometrium is seen. The ovaries are not seen. Transvaginal some pelvis: The endometrial of the uterus is heterogeneous and thickened and measures 2 cm in thickness. There are fibroids seen in the largest measures 3.9 cm in diameter. The ovaries are not seen due to overlying bowel gas. IMPRESSION: 1. Fibroid uterus. 2. Abnormal heterogeneous thickened endometrium. Hyperplasia or neoplasia is possible. If unexplained bleeding persists consider biopsy. Electronically signed by: Michelle Amezcua III, MD (02/12/2020 4:55 PM) [facility] DICTATED and SIGNED BY: MCIHELLE AMEZCUA III, MD DATE: 02/12/20 6229 Course & Med Decision Making: Course & Med Decision Making Pertinent Labs and Imaging studies reviewed. (See chart for details) This is a 44-year-old female patient with history of fibroids presented to the ED today complaining of vaginal bleeding that began 4 days ago. Per patient statement this has been an ongoing problem. She was supposed to have a D&C but she could not afford 1500. Hemoglobin 7.9, hematocrit 25.5. Negative urine hCG. CMP with potassium of 2.8, patient was given 2 doses of potassium each 40 mEq. Was discharged with potassium and education on increasing potassium intake. Pelvic ultrasound noted for uterine fibroids, abnormal heterogeneous thickened endometrium. Hyperplasia or neoplasia is possible. If unexplained bleeding persists consider biopsy. I spoke to Dr. Boyle her LIMO DRIVER, she states this patient had an appointment but never showed up. He requested patient to contact the office tomorrow and set up a follow-up appointment. Esmer Disclaimer: Esmer Disclaimer: This electronic medical record was generated, in whole or in part, using a voice recognition dictation system. Departure Departure Impression: Primary Impression: Dysfunctional uterine bleeding Additional Impression: Hypokalemia Disposition: 01 HOME, SELF-CARE Condition: STABLE Referrals: NO PCP (PCP) VAUGHN CRAWFORD MD Please call the office tomorrow morning and set up a follow-up appointment Patient Instructions: Hypokalemia-Brief, Uterine Bleeding, Dysfunctional Additional Instructions: You were seen for dysfunctional uterine bleeding. Please call Dr. Boyle tomorrow morning and set up a follow-up appointment. Your potassium is also low. Increase your dietary potassium intake including taking bananas, sweet potatoes. We will send you home with potassium pills, take them as prescribed. Scripts Potassium Chloride (POTASSIUM CHLORIDE ) 10 Meq Tab.sr.24h 10 MEQ PO DAILY for SUPPLEMENT, #7 TAB.SR Prov: LEVI ORNELAS APRN 02/12/20 Naproxen (NAPROXEN) 500 Mg Tablet 1 TAB PO BID for pain, #30 TAB 0 Refills Prov: LEVI ORNELAS APRN 02/12/20 Hydrocodone/Apap 5-325 (NORCO 5-325 TABLET) 1 Each Tablet 1 TAB PO Q6-8HRS PRN for PAIN, #25 TAB Prov: LEVI ORNELAS APRN 02/12/20 Justicifation of Admission Dx: Justifications for Admission: Justification of Admission Dx: N/A LEVI ORNELAS APRN Feb 12, 2020 18:48
[2020-02-12] MEDS ORDERED: POTA10TA12 PO (19:08)
[2020-02-12 19:20] VITALS: BP 111/65
== END 2020-02-12 19:22 | disposition home or self-care (01) ==
LOC: ER 14:42
DX: N93.8 Other specified abnormal uterine and vaginal bleeding (principal); E87.6 Hypokalemia; F17.200 Nicotine dependence, unspecified, uncomplicated; F12.90 Cannabis use, unspecified, uncomplicated; Z98.890 Other specified postprocedural states; Z88.0 Allergy status to penicillin
CPT/HCPCS: 36415; 76830; 76856; 80053; 85025; 86850; 86900; 86901; 96374; 99285; J2270

== ENCOUNTER 2020-03-18 20:10 | Inpatient (IN) | payer SELFPAY ==
[~2020-03-18] VITALS: Ht 172.7 cm; Wt 78.7 kg
[~2020-03-18 20:10] MED LIST changes: +FERR325T14 PO; +HYDR-3164 PO; +IBUP-1060 PO; +MECO10005 PO; +NAPR-514 PO; +OXYC1TAB15 PO; +POTA10TA12 PO
[2020-03-18] MEDS ORDERED: ONDANSETRON PF 4 MG/2 ML VIAL. IVP ONE (21:00)
[2020-03-18] MEDS ORDERED: fentaNYL PF VIAL 100 MCG/2 ML VIAL IVP ONE (21:00)
--- NOTE | 2020-03-18 21:01 | PHYS DOC ---
Past Medical History Past Medical History: Anemia, Cancer, Other Additional Past Medical Histor: "uterine tumor", DUB Past Surgical History: No Surgical History Additional Past Surgical Histo: TUMOR REMOVED 2015 Smoking Status: Current Some Day Smoker Alcohol Use: None Drug Use: Marijuana General Adult EDM: Chief Complaint: ABDOMINAL PAIN HPI: HPI: Patient is a 44 year old female presents to ER due to abdominal pain, vaginal bleeding. Patient had hysterectomy on Wednesday due history of anemia and vaginal bleeding. Patient is complaining of worsening abdominal pain with vaginal bleeding. Patient denied cough or fever. Patient also complained of lower chest pain with trouble breathing. Review of Systems: Review of Systems: Constitutional: Denies fever or chills. [] Eyes: Denies change in visual acuity. [] HENT: Denies nasal congestion or sore throat. [] Respiratory: Denies cough or shortness of breath. [] Cardiovascular: Denies chest pain or edema. [] GI: Positive for abdominal pain, nausea, : Positive for vaginal bleeding Musculoskeletal: Denies back pain or joint pain. [] Integument: Denies rash. [] Neurologic: Denies headache, focal weakness or sensory changes. [] Endocrine: Denies polyuria or polydipsia. [] Lymphatic: Denies swollen glands. [] Psychiatric: Denies depression or anxiety. [] Heart Score: Risk Factors: Risk Factors: DM, Current or recent (<one month) smoker, HTN, HLP, family history of CAD, obesity. Risk Scores: Score 0 - 3: 2.5% MACE over next 6 weeks - Discharge Home Score 4 - 6: 20.3% MACE over next 6 weeks - Admit for Clinical Observation Score 7 - 10: 72.7% MACE over next 6 weeks - Early Invasive Strategies Current Medications: Laboratory Tests Test 03/18/20 20:55 03/18/20 23:50 White Blood Count 11.3 x10^3/uL Red Blood Count 3.53 x10^6/uL Hemoglobin 9.1 g/dL Hematocrit 28.6 % Mean Corpuscular Volume 81 fL Mean Corpuscular Hemoglobin 26 pg Mean Corpuscular Hemoglobin Concent 32 g/dL Red Cell Distribution Width 28.8 % Platelet Count 271 x10^3/uL Neutrophils (%) (Auto) 91 % Lymphocytes (%) (Auto) 3 % Monocytes (%) (Auto) 5 % Eosinophils (%) (Auto) 0 % Basophils (%) (Auto) 0 % Neutrophils # (Auto) 10.3 x10^3/uL Lymphocytes # (Auto) 0.4 x10^3/uL Monocytes # (Auto) 0.6 x10^3/uL Eosinophils # (Auto) 0.0 x10^3/uL Basophils # (Auto) 0.1 x10^3/uL Segmented Neutrophils % 87 % Band Neutrophils % 4 % Lymphocytes % 4 % Atypical Lymphocytes % (Manual) 1 % Monocytes % 3 % Basophils % 1 % Platelet Estimate Adequate Giant Platelets Few Polychromasia Slight Hypochromasia Slight Anisocytosis Marked Prothrombin Time 14.5 SEC Prothromb Time International Ratio 1.2 Activated Partial Thromboplast Time 30 SEC Sodium Level 138 mmol/L Potassium Level 3.5 mmol/L Chloride Level 104 mmol/L Carbon Dioxide Level 25 mmol/L Anion Gap 9 Blood Urea Nitrogen 8 mg/dL Creatinine 0.7 mg/dL Estimated GFR (Cockcroft-Gault) 90.5 BUN/Creatinine Ratio 11 Glucose Level 117 mg/dL Calcium Level 8.5 mg/dL Magnesium Level 2.0 mg/dL Total Bilirubin 0.4 mg/dL Aspartate Amino Transf (AST/SGOT) 18 U/L Alanine Aminotransferase (ALT/SGPT) 29 U/L Alkaline Phosphatase 62 U/L Total Protein 6.8 g/dL Albumin 2.9 g/dL Albumin/Globulin Ratio 0.7 Urine Collection Type Unknown Urine Color Yellow Urine Clarity Clear Urine pH 6.0 Urine Specific [place] >=1.030 Urine Protein 100 mg/dL Urine Glucose (UA) Negative mg/dL Urine Ketones (Stick) 40 mg/dL Urine Blood Large Urine Nitrite Positive Urine Bilirubin Negative Urine Urobilinogen Dipstick 1.0 mg/dL Urine Leukocyte Esterase Negative Urine RBC 20-40 /HPF Urine WBC 20-40 /HPF Urine Squamous Epithelial Cells Few /LPF Urine Bacteria Many /HPF Urine Mucus Mod /LPF Current Medications Medications (Trade) Dose Ordered Sig/Abiel Route PRN Reason Start Time Stop Time Status Last Admin Dose Admin Fentanyl Citrate (Fentanyl 2ml Vial) 50 mcg 1X ONCE IVP 03/18/20 21:00 03/18/20 21:01 DC 03/18/20 21:16 Ondansetron HCl (Zofran) 4 mg 1X ONCE IVP 03/18/20 21:00 03/18/20 21:01 DC 03/18/20 21:11 Iohexol (Omnipaque 350 Mg/ml) 100 ml 1X ONCE IV 03/18/20 23:00 03/18/20 23:01 DC 03/18/20 22:39 Info (CONTRAST GIVEN -- Rx MONITORING) 1 each PRN DAILY PRN MC SEE COMMENTS 03/18/20 22:30 03/20/20 22:29 Allergies: Allergies: Allergies Coded Allergies Type Severity Reaction Last Updated Verified Penicillins Allergy Intermediate 03/15/20 Yes Physical Exam: PE: Constitutional: Well developed, well nourished, no acute distress, non-toxic appearance. [] HENT: Normocephalic, atraumatic, bilateral external ears normal, oropharynx moist, no oral exudates, nose normal. [] Eyes: PERRLA, EOMI, conjunctiva normal, no discharge. [] Neck: Normal range of motion, no tenderness, supple, no stridor. [] Cardiovascular:Heart rate regular rhythm, no murmur [] Lungs & Thorax: Bilateral breath sounds clear to auscultation [] Abdomen: Bowel sounds normal, soft, There is tenderness to palpation in suprapubic area, no masses, no pulsatile masses. [] Skin: Warm, dry, no erythema, no rash. [] Back: No tenderness, no CVA tenderness. [] Extremities: No tenderness, no cyanosis, no clubbing, ROM intact, no edema. [] Neurologic: Alert and oriented X 3, normal motor function, normal sensory function, no focal deficits noted. [] Psychologic: Affect normal, judgement normal, mood normal. [] Current Patient Data: Labs: Laboratory Tests Test 03/18/20 20:55 03/18/20 23:50 White Blood Count 11.3 x10^3/uL Red Blood Count 3.53 x10^6/uL Hemoglobin 9.1 g/dL Hematocrit 28.6 % Mean Corpuscular Volume 81 fL Mean Corpuscular Hemoglobin 26 pg Mean Corpuscular Hemoglobin Concent 32 g/dL Red Cell Distribution Width 28.8 % Platelet Count 271 x10^3/uL Neutrophils (%) (Auto) 91 % Lymphocytes (%) (Auto) 3 % Monocytes (%) (Auto) 5 % Eosinophils (%) (Auto) 0 % Basophils (%) (Auto) 0 % Neutrophils # (Auto) 10.3 x10^3/uL Lymphocytes # (Auto) 0.4 x10^3/uL Monocytes # (Auto) 0.6 x10^3/uL Eosinophils # (Auto) 0.0 x10^3/uL Basophils # (Auto) 0.1 x10^3/uL Segmented Neutrophils % 87 % Band Neutrophils % 4 % Lymphocytes % 4 % Atypical Lymphocytes % (Manual) 1 % Monocytes % 3 % Basophils % 1 % Platelet Estimate Adequate Giant Platelets Few Polychromasia Slight Hypochromasia Slight Anisocytosis Marked Prothrombin Time 14.5 SEC Prothromb Time International Ratio 1.2 Activated Partial Thromboplast Time 30 SEC Sodium Level 138 mmol/L Potassium Level 3.5 mmol/L Chloride Level 104 mmol/L Carbon Dioxide Level 25 mmol/L Anion Gap 9 Blood Urea Nitrogen 8 mg/dL Creatinine 0.7 mg/dL Estimated GFR (Cockcroft-Gault) 90.5 BUN/Creatinine Ratio 11 Glucose Level 117 mg/dL Calcium Level 8.5 mg/dL Magnesium Level 2.0 mg/dL Total Bilirubin 0.4 mg/dL Aspartate Amino Transf (AST/SGOT) 18 U/L Alanine Aminotransferase (ALT/SGPT) 29 U/L Alkaline Phosphatase 62 U/L Total Protein 6.8 g/dL Albumin 2.9 g/dL Albumin/Globulin Ratio 0.7 Urine Collection Type Unknown Urine Color Yellow Urine Clarity Clear Urine pH 6.0 Urine Specific [place] >=1.030 Urine Protein 100 mg/dL Urine Glucose (UA) Negative mg/dL Urine Ketones (Stick) 40 mg/dL Urine Blood Large Urine Nitrite Positive Urine Bilirubin Negative Urine Urobilinogen Dipstick 1.0 mg/dL Urine Leukocyte Esterase Negative Urine RBC 20-40 /HPF Urine WBC 20-40 /HPF Urine Squamous Epithelial Cells Few /LPF Urine Bacteria Many /HPF Urine Mucus Mod /LPF Current Medications Medications (Trade) Dose Ordered Sig/Abiel Route PRN Reason Start Time Stop Time Status Last Admin Dose Admin Fentanyl Citrate (Fentanyl 2ml Vial) 50 mcg 1X ONCE IVP 03/18/20 21:00 03/18/20 21:01 DC 03/18/20 21:16 Ondansetron HCl (Zofran) 4 mg 1X ONCE IVP 03/18/20 21:00 03/18/20 21:01 DC 03/18/20 21:11 Iohexol (Omnipaque 350 Mg/ml) 100 ml 1X ONCE IV 03/18/20 23:00 03/18/20 23:01 DC 03/18/20 22:39 Info (CONTRAST GIVEN -- Rx MONITORING) 1 each PRN DAILY PRN MC SEE COMMENTS 03/18/20 22:30 03/20/20 22:29 EKG: EKG: [] Radiology/Procedures: Radiology/Procedures: [facility] [address] [place] [address] IMAGING REPORT Signed PATIENT: JANIS SADLER ACCOUNT: [id number] : 1975 LOCATION: ER AGE: 44 SEX: F EXAM STATUS: REG ER ORD. PHYSICIAN: JOHN LAUREANO DO REASON: CHEST PAIN, SOA, RECENT HYSTERECTOMY PROCEDURE: CT ANGIO CHEST W ABD PEL W/ EXAM: 1. CT ANGIOGRAPHY OF THE CHEST WITH AND WITHOUT CONTRAST. 2. CT ABDOMEN/PELVIS WITH CONTRAST. HISTORY: Chest pain, shortness of breath, abdominal pain, recent hysterectomy. TECHNIQUE: Computed tomographic angiography of the chest was performed before and after the intravenous administration of iodinated contrast. 3-D maximum intensity projections were also performed. CT of the abdomen and pelvis was performed after intravenous contrast. One or more of the following individualized dose reduction techniques were utilized for this examination: 1. Automated exposure control. 2. Adjustment of the mA and/or kV according to patient size. 3. Use of iterative reconstruction technique. COMPARISON: 03/11/2020. FINDINGS: Images of the upper abdomen reveal no acute abnormality. Bone windows reveal no suspicious lesions. There are small emboli within the left lower and right upper lobe segmental arteries. There is no aortic dissection or aneurysm. There are no pathologically enlarged mediastinal or axillary lymph nodes. There is no pleural or pericardial effusion. The heart is not enlarged. Lung windows reveal mild atelectasis in both lower lobes. The liver, gallbladder, pancreas, adrenal glands and spleen are unremarkable. Subcentimeter cysts in the left kidney are likely benign. The right kidney is unremarkable. There are no pathologically enlarged lymph nodes. A fluid collection in the pelvis and measures 8.6 x 4.8 cm. There is mild surrounding inflammatory stranding. A small amount of pneumoperitoneum and gas in the space of Retzius are likely postinflammatory. Another small focus of gas is noted in the bladder. The appendix is not inflamed. There is no small bowel obstruction. IMPRESSION: 1. Small bilateral pulmonary emboli. 2. 8.6 x 4.8 cm fluid collection in the pelvis. This is consistent with reactive fluid, a resolving hematoma versus an abscess. Correlate for evidence of infection. These findings were called to Dr. Laureano by Gene Crandall on 03/18/2020 at 11:11 PM. FOR INTERNAL CODING PURPOSES Critical result: RESULT CODE: (C) Electronically signed by: Robert Crandall MD (03/18/2020 11:14 PM) [facility] DICTATED and SIGNED BY: NADIA CRANDALL MD DATE: 03/18/20 7066 Course & Med Decision Making: Course & Med Decision Making Pertinent Labs and Imaging studies reviewed. (See chart for details) Patient is a 44-year-old female who presented with lower abdominal pain and vaginal spotting. Patient yet had total hysterectomy done on last Wednesday due to recurrent vaginal bleeding with anemia. Patient was just discharged home [address] scan of the abdomen pelvic show an area of fluid collection consistent with hematoma, CT of the chest shows bilateral small PE. Discussed with the [employer] doctor Dr. Narayan Mack who operated on her, he is okay for her to have heparin treatment for PE. he would like the patient admitted to the hospitalist service. Discussed with Dr. Anthony Perdomo who agreed to admit the patient Dragon Disclaimer: Esmer Disclaimer: This electronic medical record was generated, in whole or in part, using a voice recognition dictation system. Departure Departure Impression: Primary Impression: Pulmonary emboli Additional Impressions: Abdominal pain Pelvic hematoma Disposition: 09 ADMITTED INPT THIS HOSP Admitting Physician: [facility] (DR. ANTHONY PERDOMO) Condition: STABLE Referrals: NO PCP (PCP) JOHN LAUREANO DO Mar 18, 2020 21:00
[2020-03-18 21:07] LABS: BASO # 0.1 x10^3/uL (0.0-0.2); BASO % 0 % (0-3); EOS % 0 % (0-3); HEMATOCRIT 28.6 % (36.0-47.0); HEMOGLOBIN 9.1 g/dL (12.0-15.5); LYMPH # 0.4 x10^3/uL (1.0-4.8); LYMPH % 3 % (24-48); MEAN CORPUSCULAR HEMOGLOBIN 26 pg (25-35); MEAN CORPUSCULAR HGB CONC 32 g/dL (31-37); MEAN CORPUSCULAR VOLUME 81 fL (79-100); MONO # 0.6 x10^3/uL (0.0-1.1); MONO % 5 % (0-9); NEUT # 10.3 x10^3/uL (1.8-7.7); NEUT % 91 % (31-73); PLATELET COUNT 271 x10^3/uL (140-400); RED BLOOD COUNT 3.53 x10^6/uL (3.50-5.40); RED CELL DISTRIBUTION WIDTH 28.8 % (11.5-14.5); WHITE BLOOD COUNT 11.3 x10^3/uL (4.0-11.0)
[2020-03-18 21:18] LABS: CALCIUM 8.5 mg/dL (8.5-10.1); CREATININE 0.7 mg/dL (0.6-1.0); GFR 90.5; POTASSIUM 3.5 mmol/L (3.5-5.1)
[2020-03-18 21:20] LABS: PROTHROMBIN TIME PATIENT 14.5 SEC (11.7-14.0)
[2020-03-18 21:25] LABS: ALBUMIN 2.9 g/dL (3.4-5.0); ALBUMIN/GLOBULIN RATIO 0.7 (1.0-1.7); TOTAL BILIRUBIN 0.4 mg/dL (0.2-1.0); TOTAL PROTEIN 6.8 g/dL (6.4-8.2)
[2020-03-18 21:47] LABS: % ATYL 1 % (0-0); % BANDS 4 % (0-9); % BASOS 1 % (0-3); % LYMPHS 4 % (24-48); % MONOS 3 % (0-10); % SEGS 87 % (35-66); PLT ESTIMATE ADEQUATE (ADEQUATE)
[2020-03-18 21:48] LABS: ANISOCYTOSIS MARKED; HYPOCHROMIA SLIGHT; POLYCHROMASIA SLIGHT
[2020-03-18] MEDS ORDERED: CONTRAST GIVEN. MC PRN (22:30)
[2020-03-18] MEDS ORDERED: IOHEXOL 350 MG/ML 100 ML VIAL. IV ONE (23:00)
--- NOTE | 2020-03-18 23:17 | RAD ---
EXAM: 1. CT ANGIOGRAPHY OF THE CHEST WITH AND WITHOUT CONTRAST. 2. CT ABDOMEN/PELVIS WITH CONTRAST. HISTORY: Chest pain, shortness of breath, abdominal pain, recent hysterectomy. TECHNIQUE: Computed tomographic angiography of the chest was performed before and after the intravenous administration of iodinated contrast. 3-D maximum intensity projections were also performed. CT of the abdomen and pelvis was performed after intravenous contrast. One or more of the following individualized dose reduction techniques were utilized for this examination: 1. Automated exposure control. 2. Adjustment of the mA and/or kV according to patient size. 3. Use of iterative reconstruction technique. COMPARISON: 03/11/2020. FINDINGS: Images of the upper abdomen reveal no acute abnormality. Bone windows reveal no suspicious lesions. There are small emboli within the left lower and right upper lobe segmental arteries. There is no aortic dissection or aneurysm. There are no pathologically enlarged mediastinal or axillary lymph nodes. There is no pleural or pericardial effusion. The heart is not enlarged. Lung windows reveal mild atelectasis in both lower lobes. The liver, gallbladder, pancreas, adrenal glands and spleen are unremarkable. Subcentimeter cysts in the left kidney are likely benign. The right kidney is unremarkable. There are no pathologically enlarged lymph nodes. A fluid collection in the pelvis and measures 8.6 x 4.8 cm. There is mild surrounding inflammatory stranding. A small amount of pneumoperitoneum and gas in the space of Retzius are likely postinflammatory. Another small focus of gas is noted in the bladder. The appendix is not inflamed. There is no small bowel obstruction. IMPRESSION: 1. Small bilateral pulmonary emboli. 2. 8.6 x 4.8 cm fluid collection in the pelvis. This is consistent with reactive fluid, a resolving hematoma versus an abscess. Correlate for evidence of infection. These findings were called to Dr. Mckeon by Gene Crandall on 03/18/2020 at 11:11 PM. FOR INTERNAL CODING PURPOSES Critical result: RESULT CODE: (C) Electronically signed by: Robert Crandall MD (03/18/2020 11:14 PM) [facility]
[2020-03-18] MEDS ORDERED: oxyCODONE/APAP 5/325 1 TAB TABLET PO PRN (23:45)
[2020-03-18] MEDS ORDERED: IV NORMAL SALINE 1000ML BAG 1,000 ML IV SCH (23:50)
[2020-03-18 23:59] LABS: BILIRUBIN,URINE NEGATIVE (NEG); CLARITY,URINE CLEAR; COLOR,URINE YELLOW; NITRITE,URINE POSITIVE (NEG); PROTEIN,URINE 100 mg/dL (NEG-TRACE)
[2020-03-19] MEDS ORDERED: HEPARIN 25,000UTS/250ML PREMIX 250 ML IV PRN
[2020-03-19] MEDS ORDERED: ONDANSETRON PF 4 MG/2 ML VIAL. IV PRN
[2020-03-19 00:04] LABS: BACTERIA,URINE MANY /HPF (0-FEW); RBC,URINE 20-40 /HPF (0-2); WBC,URINE 20-40 /HPF (0-4)
[2020-03-19] MEDS ORDERED: HEPARIN for IV BOLUS 10,000 UNIT/10 ML VIAL. IV PRN ×3 (01:15)
[2020-03-19] MEDS: HEPARIN 25,000UTS/250ML PREMIX 250 ML IV PRN ×2 (01:26→22:26)
[2020-03-19] MEDS: ANTI-COAG MONITOR BY PHARMACY. MC PRN ×2 (01:51→11:41)
[2020-03-19] MEDS: fentaNYL PF VIAL 100 MCG/2 ML VIAL IV PRN ×2 (02:52→22:27)
[2020-03-19 03:00] VITALS: BP 116/62
[2020-03-19] MEDS ORDERED: ACETAMINOPHEN 650 MG SUPP.RECT. PR PRN (03:30)
[2020-03-19] MEDS ORDERED: ACETAMINOPHEN 325 MG TABLET. PO PRN (03:30)
[2020-03-19 07:00] VITALS: BP 110/53
--- NOTE | 2020-03-19 08:44 | PDOC1 ---
History and Physical Date of Admission Date of Admission DATE: 03/19/20 TIME: 08:41 Identification/Chief Complaint Chief Complaint Abdominal pain, vaginal bleeding Source Source: Patient History of Present Illness History of Present Illness Patient is a 44-year-old female who is status post recent hysterectomy, who presents with complaint of abdominal pain and vaginal bleeding. Patient had a hysterectomy on 03/15/2020, and since that time has been complaining of worsening abdominal pain with vaginal bleeding. She reports abdominal pain 01/14, and soaking through multiple pads since her surgery. Upon evaluation in the ER, she also noted some chest pain and shortness of breath that was worse with deep inspiration and exertion. Patient also reports some burning on urination for the past 2 days, with associated nausea. She denies any vomiting, headaches, hemoptysis. UA: Nitrite positive, WBC 2040 Past Medical History Past Medical History Uterine tumor Cardiovascular: No pertinent hx Pulmonary: No pertinent hx GI: No pertinent hx Heme/Onc: No pertinent hx Hepatobiliary: No pertinent hx Psych: No pertinent hx Rheumatologic: No pertinent hx Infectious disease: No pertinent hx Renal/: No pertinent hx Endocrine: No pertinent hx Past Surgical History Past Surgical History: Hysterectomy, Other Family History Family History: Hypertension Social History Smoke: <1 pack per day ALCOHOL: none Drugs: None Current Problem List Problem List Problems Medical Problems: (1) Abdominal pain Status: Acute (2) Pelvic hematoma Status: Acute (3) Pulmonary emboli Status: Acute Current Medications Current Medications Current Medications Fentanyl Citrate (Fentanyl 2ml Vial) 50 mcg 1X ONCE IVP Last administered on 03/18/20at 21:16; Start 03/18/20 at 21:00; Stop 03/18/20 at 21:01; Status DC Ondansetron HCl (Zofran) 4 mg 1X ONCE IVP Last administered on 03/18/20at 21:11; Start 03/18/20 at 21:00; Stop 03/18/20 at 21:01; Status DC Iohexol (Omnipaque 350 Mg/ml) 100 ml 1X ONCE IV Last administered on 03/18at 22:39; Start 03/18/20 at 23:00; Stop 03/18/20 at 23:01; Status DC Info (CONTRAST GIVEN -- Rx MONITORING) 1 each PRN DAILY PRN MC SEE COMMENTS; Start 03/18/20 at 22:30; Stop 03/20/20 at 22:29 Ferrous Sulfate (Feosol) 325 mg BID PO ; Start 03/19/20 at 09:00 Oxycodone/ Acetaminophen (Percocet 5/325) 1 tab PRN Q8HRS PRN PO SEVERE PAIN 7- 10; Start 03/18/20 at 23:45 Potassium Chloride (Klor-Con) 10 meq DAILY PO ; Start 03/19/20 at 09:00 Cyanocobalamin (Vitamin B-12) 1,000 mcg DAILY PO ; Start 03/19/20 at 09:00 Multivitamins (Thera M Plus) 1 tab DAILY PO ; Start 03/19/20 at 09:00 Ondansetron HCl (Zofran) 4 mg PRN Q8HRS PRN IV NAUSEA/VOMITING 1ST CHOICE; Start 03/19/20 at 00:00; Stop 03/19/20 at 23:59 Fentanyl Citrate (Fentanyl 2ml Vial) 50 mcg PRN Q1HR PRN IV SEVERE PAIN 7-10 Last administered on 03/19/20at 02:52; Start 03/19/20 at 00:00; Stop 03/19/20 at 23:59 Sodium Chloride 1,000 ml @ 75 mls/hr [id number] IV Last administered on 03/19/20at 00:39; Start 03/18/20 at 23:50; Stop 03/19/20 at 23:49 Heparin Sodium/ Dextrose 250 ml @ 0 mls/hr CONT PRN IV PER PROTOCOL Last administered on 03/19/20at 00:51; Start 03/19/20 at 00:00; Stop 03/19/20 at 01:10; Status DC Heparin Sodium (Porcine) (Heparin Sodium) 2,350 unit PRN Q6HRS PRN IV FOR UFH L EVEL LESS THAN 0.2; Start 03/19/20 at 00:00; Stop 03/19/20 at 01:10; Status DC Heparin Sodium (Porcine) (Heparin Sodium) 1,200 unit PRN Q6HRS PRN IV FOR UFH LEVEL 0.2 - 0.29; Start 03/19/20 at 00:00; Stop 03/19/20 at 01:10; Status DC Info (Anti-Coagulation Monitoring By Pharmacy) 1 each PRN DAILY PRN MC SEE COMMENTS Last administered on 03/19/20at 01:51; Start 03/19/20 at 00:15 Heparin Sodium/ Dextrose 250 ml @ 0 mls/hr CONT PRN IV PER PROTOCOL Last administered on 03/19/20at 01:26; Start 03/19/20 at 01:15 Heparin Sodium (Porcine) (Heparin Sodium) 2,350 unit PRN Q6HRS PRN IV FOR UFH LEVEL LESS THAN 0.2 Last administered on 03/19/20at 01:30; Start 03/19/20 at 01:15 Heparin Sodium (Porcine) (Heparin Sodium) 1,150 unit PRN Q6HRS PRN IV FOR UFH LEVEL 0.2 - 0.29; Start 03/19/20 at 01:15 Acetaminophen (Tylenol) 650 mg PRN Q6HRS PRN PO MILD PAIN / TEMP > 100.3'F; Start 03/19/20 at 03:30 Acetaminophen (Tylenol Supp) 650 mg PRN Q6HRS PRN SC MILD PAIN / TEMP > 100.3'F Last administered on 03/19/20at 03:32; Start 03/19/20 at 03:30 Active Scripts Active B12 Active (Mecobalamin) 1,000 Mcg Tab.chew 1,000 Mcg PO DAILY Ferrous Sulfate 325 Mg Tablet 1 Tab PO BID Percocet 5-325 Mg Tablet (Oxycodone/Acetaminophen) 1 Each Tablet 1 Tab PO PRN Q8HRS PRN Ibuprofen 800 Mg Tablet 800 Mg PO PRN Q8HRS PRN Potassium Chloride (Potassium Chloride) 10 Meq Tab.sr.24h 10 Meq PO DAILY Naproxen 500 Mg Tablet 1 Tab PO BID [place] 5-325 Tablet (Acetaminophen/Hydrocodone Bitart) 1 Each Tablet 1 Tab PO Q6- 8HRS PRN Medroxyprogesterone Acetate 2.5 Mg Tablet 5 Mg PO DAILY 90 Days Reported Iron (Ferrous Sulfate) 325 Mg Tablet 325 Mg PO DAILY Multivitamins (Multivitamin) 1 Each Tablet 1 Tab PO DAILY Allergies Allergies: Coded Allergies: Penicillins (Verified Allergy, Intermediate, 03/15/20) ROS Review of System GENERAL: No history of weight change, weakness or fevers. SKIN: No bruising, hair changes or rashes. EYES: No blurred, double or loss of vision. NOSE AND THROAT: No history of nosebleeds, hoarseness or sore throat. HEART: Pleuritic chest pain. Denies palpitations. LUNGS: Shortness of breath. Denies cough, hemoptysis, wheezing. GASTROINTESTINAL: Abdominal pain, nausea. Denies vomiting. GENITOURINARY: Dysuria. Denies frequency, urgency, hematuria. NEUROLOGIC: Denies history of numbness, tingling, tremor or weakness. PSYCHIATRIC: Denies anxiety, denies depression. ENDOCRINE: No history of heat or cold intolerance, polyuria or polydipsia. EXTREMITIES: Denies muscle weakness, joint pain, pain on walking or stiffness. Physical Exam Physical Exam General: Alert, Oriented X3, Cooperative, No acute distress HEENT: PERRLA, EOMI Lungs: Clear to auscultation, Normal air movement Heart: RRR, no murmurs Cardiovascular: S1, S2 Abdomen: Normal bowel sounds, Soft, No tenderness Extremities: No clubbing, No cyanosis Skin: No rashes, No significant lesion Neuro: Normal speech, Normal tone, Sensation intact Psych/Mental Status: Mental status NL, Mood NL Vitals Vitals Vital Signs Date Time Temp Pulse Resp B/P (MAP) Pulse Ox O2 Delivery O2 Flow Rate FiO2 03/19/20 03:22 17 03/19/20 03:00 101.3 102 116/62 (80) 98 Room Air 101.3 Labs Labs Laboratory Tests Test 03/18/20 20:55 03/18/20 23:50 White Blood Count 11.3 x10^3/uL (4.0-11.0) Red Blood Count 3.53 x10^6/uL (3.50-5.40) Hemoglobin 9.1 g/dL (12.0-15.5) Hematocrit 28.6 % (36.0-47.0) Mean Corpuscular Volume 81 fL (79-100) Mean Corpuscular Hemoglobin 26 pg (25-35) Mean Corpuscular Hemoglobin Concent 32 g/dL (31-37) Red Cell Distribution Width 28.8 % (11.5-14.5) Platelet Count 271 x10^3/uL (140-400) Neutrophils (%) (Auto) 91 % (31-73) Lymphocytes (%) (Auto) 3 % (24-48) Monocytes (%) (Auto) 5 % (0-9) Eosinophils (%) (Auto) 0 % (0-3) Basophils (%) (Auto) 0 % (0-3) Neutrophils # (Auto) 10.3 x10^3/uL (1.8-7.7) Lymphocytes # (Auto) 0.4 x10^3/uL (1.0-4.8) Monocytes # (Auto) 0.6 x10^3/uL (0.0-1.1) Eosinophils # (Auto) 0.0 x10^3/uL (0.0-0.7) Basophils # (Auto) 0.1 x10^3/uL (0.0-0.2) Segmented Neutrophils % 87 % (35-66) Band Neutrophils % 4 % (0-9) Lymphocytes % 4 % (24-48) Atypical Lymphocytes % (Manual) 1 % (0-0) Monocytes % 3 % (0-10) Basophils % 1 % (0-3) Platelet Estimate Adequate (ADEQUATE) Giant Platelets Few Polychromasia Slight Hypochromasia Slight Anisocytosis Marked Prothrombin Time 14.5 SEC (11.7-14.0) Prothromb Time International Ratio 1.2 (0.8-1.1) Activated Partial Thromboplast Time 30 SEC (24-38) Sodium Level 138 mmol/L (136-145) Potassium Level 3.5 mmol/L (3.5-5.1) Chloride Level 104 mmol/L (98-107) Carbon Dioxide Level 25 mmol/L (21-32) Anion Gap 9 (6-14) Blood Urea Nitrogen 8 mg/dL (7-20) Creatinine 0.7 mg/dL (0.6-1.0) Estimated GFR (Cockcroft-Gault) 90.5 BUN/Creatinine Ratio 11 (6-20) Glucose Level 117 mg/dL (70-99) Calcium Level 8.5 mg/dL (8.5-10.1) Magnesium Level 2.0 mg/dL (1.8-2.4) Total Bilirubin 0.4 mg/dL (0.2-1.0) Aspartate Amino Transf (AST/SGOT) 18 U/L (15-37) Alanine Aminotransferase (ALT/SGPT) 29 U/L (14-59) Alkaline Phosphatase 62 U/L (46-116) Total Protein 6.8 g/dL (6.4-8.2) Albumin 2.9 g/dL (3.4-5.0) Albumin/Globulin Ratio 0.7 (1.0-1.7) Urine Collection Type Unknown Urine Color Yellow Urine Clarity Clear Urine pH 6.0 (<5.0-8.0) Urine Specific [place] >=1.030 (1.000-1.030) Urine Protein 100 mg/dL (NEG-TRACE) Urine Glucose (UA) Negative mg/dL (NEG) Urine Ketones (Stick) 40 mg/dL (NEG) Urine Blood Large (NEG) Urine Nitrite Positive (NEG) Urine Bilirubin Negative (NEG) Urine Urobilinogen Dipstick 1.0 mg/dL (0.2 mg/dL) Urine Leukocyte Esterase Negative (NEG) Urine RBC 20-40 /HPF (0-2) Urine WBC 20-40 /HPF (0-4) Urine Squamous Epithelial Cells Few /LPF Urine Bacteria Many /HPF (0-FEW) Urine Mucus Mod /LPF Laboratory Tests Test 03/18/20 20:55 03/18/20 23:50 White Blood Count 11.3 x10^3/uL (4.0-11.0) Red Blood Count 3.53 x10^6/uL (3.50-5.40) Hemoglobin 9.1 g/dL (12.0-15.5) Hematocrit 28.6 % (36.0-47.0) Mean Corpuscular Volume 81 fL (79-100) Mean Corpuscular Hemoglobin 26 pg (25-35) Mean Corpuscular Hemoglobin Concent 32 g/dL (31-37) Red Cell Distribution Width 28.8 % (11.5-14.5) Platelet Count 271 x10^3/uL (140-400) Neutrophils (%) (Auto) 91 % (31-73) Lymphocytes (%) (Auto) 3 % (24-48) Monocytes (%) (Auto) 5 % (0-9) Eosinophils (%) (Auto) 0 % (0-3) Basophils (%) (Auto) 0 % (0-3) Neutrophils # (Auto) 10.3 x10^3/uL (1.8-7.7) Lymphocytes # (Auto) 0.4 x10^3/uL (1.0-4.8) Monocytes # (Auto) 0.6 x10^3/uL (0.0-1.1) Eosinophils # (Auto) 0.0 x10^3/uL (0.0-0.7) Basophils # (Auto) 0.1 x10^3/uL (0.0-0.2) Segmented Neutrophils % 87 % (35-66) Band Neutrophils % 4 % (0-9) Lymphocytes % 4 % (24-48) Atypical Lymphocytes % (Manual) 1 % (0-0) Monocytes % 3 % (0-10) Basophils % 1 % (0-3) Platelet Estimate Adequate (ADEQUATE) Giant Platelets Few Polychromasia Slight Hypochromasia Slight Anisocytosis Marked Prothrombin Time 14.5 SEC (11.7-14.0) Prothromb Time International Ratio 1.2 (0.8-1.1) Activated Partial Thromboplast Time 30 SEC (24-38) Sodium Level 138 mmol/L (136-145) Potassium Level 3.5 mmol/L (3.5-5.1) Chloride Level 104 mmol/L (98-107) Carbon Dioxide Level 25 mmol/L (21-32) Anion Gap 9 (6-14) Blood Urea Nitrogen 8 mg/dL (7-20) Creatinine 0.7 mg/dL (0.6-1.0) Estimated GFR (Cockcroft-Gault) 90.5 BUN/Creatinine Ratio 11 (6-20) Glucose Level 117 mg/dL (70-99) Calcium Level 8.5 mg/dL (8.5-10.1) Magnesium Level 2.0 mg/dL (1.8-2.4) Total Bilirubin 0.4 mg/dL (0.2-1.0) Aspartate Amino Transf (AST/SGOT) 18 U/L (15-37) Alanine Aminotransferase (ALT/SGPT) 29 U/L (14-59) Alkaline Phosphatase 62 U/L (46-116) Total Protein 6.8 g/dL (6.4-8.2) Albumin 2.9 g/dL (3.4-5.0) Albumin/Globulin Ratio 0.7 (1.0-1.7) Urine Collection Type Unknown Urine Color Yellow Urine Clarity Clear Urine pH 6.0 (<5.0-8.0) Urine Specific [place] >=1.030 (1.000-1.030) Urine Protein 100 mg/dL (NEG-TRACE) Urine Glucose (UA) Negative mg/dL (NEG) Urine Ketones (Stick) 40 mg/dL (NEG) Urine Blood Large (NEG) Urine Nitrite Positive (NEG) Urine Bilirubin Negative (NEG) Urine Urobilinogen Dipstick 1.0 mg/dL (0.2 mg/dL) Urine Leukocyte Esterase Negative (NEG) Urine RBC 20-40 /HPF (0-2) Urine WBC 20-40 /HPF (0-4) Urine Squamous Epithelial Cells Few /LPF Urine Bacteria Many /HPF (0-FEW) Urine Mucus Mod /LPF Images Images EXAM: 1. CT ANGIOGRAPHY OF THE CHEST WITH AND WITHOUT CONTRAST. 2. CT ABDOMEN/PELVIS WITH CONTRAST. HISTORY: Chest pain, shortness of breath, abdominal pain, recent hysterectomy. TECHNIQUE: Computed tomographic angiography of the chest was performed before and after the intravenous administration of iodinated contrast. 3-D maximum intensity projections were also performed. CT of the abdomen and pelvis was performed after intravenous contrast. One or more of the following individualized dose reduction techniques were utilized for this examination: 1. Automated exposure control. 2. Adjustment of the mA and/or kV according to patient size. 3. Use of iterative reconstruction technique. COMPARISON: 03/11/2020. FINDINGS: Images of the upper abdomen reveal no acute abnormality. Bone windows reveal no suspicious lesions. There are small emboli within the left lower and right upper lobe segmental arteries. There is no aortic dissection or aneurysm. There are no pathologically enlarged mediastinal or axillary lymph nodes. There is no pleural or pericardial effusion. The heart is not enlarged. Lung windows reveal mild atelectasis in both lower lobes. The liver, gallbladder, pancreas, adrenal glands and spleen are unremarkable. Subcentimeter cysts in the left kidney are likely benign. The right kidney is unremarkable. There are no pathologically enlarged lymph nodes. A fluid collection in the pelvis and measures 8.6 x 4.8 cm. There is mild surrounding inflammatory stranding. A small amount of pneumoperitoneum and gas in the space of [place] are likely postinflammatory. Another small focus of gas is noted in the bladder. The appendix is not inflamed. There is no small bowel obstruction. IMPRESSION: 1. Small bilateral pulmonary emboli. 2. 8.6 x 4.8 cm fluid collection in the pelvis. This is consistent with reactive fluid, a resolving hematoma versus an abscess. Correlate for evidence of infection. VTE Prophylaxis Ordered VTE Prophylaxis Devices: No VTE Pharmacological Prophylaxi: Yes Assessment/Plan Assessment/Plan Bilateral PE Pelvic hematoma Anemia UTI Malnutrition Plan: Patient has been placed on IV heparin drip for bilateral PEs. Consultation was placed to [facility] [employer] [facility]. Will treat patient empirically with Rocephin 1 g daily for urinary tract infection. Dysuria improving, urine cultures pending. She is breathing comfortably on room air. Pending [employer] recommendations, I feel comfortable discharging patient home with oral anticoagulation after monitoring hemoglobin overnight. Justifications for Admission Other Justification CM MCGILL MD Mar 19, 2020 08:44
[2020-03-19 08:56] LABS: BASO % 0 % (0-3); EOS % 0 % (0-3); HEMOGLOBIN 8.1 g/dL (12.0-15.5); LYMPH # 0.7 x10^3/uL (1.0-4.8); LYMPH % 7 % (24-48); MEAN CORPUSCULAR HEMOGLOBIN 26 pg (25-35); MEAN CORPUSCULAR HGB CONC 32 g/dL (31-37); MEAN CORPUSCULAR VOLUME 82 fL (79-100); MONO # 0.6 x10^3/uL (0.0-1.1); MONO % 6 % (0-9); NEUT # 9.2 x10^3/uL (1.8-7.7); NEUT % 87 % (31-73); PLATELET COUNT 228 x10^3/uL (140-400); RED BLOOD COUNT 3.07 x10^6/uL (3.50-5.40); WHITE BLOOD COUNT 10.6 x10^3/uL (4.0-11.0)
[2020-03-19 09:14] LABS: CALCIUM 7.9 mg/dL (8.5-10.1); CREATININE 0.6 mg/dL (0.6-1.0); GFR 108.1; POTASSIUM 3.2 mmol/L (3.5-5.1)
--- NOTE | 2020-03-19 10:08 | PDOC2 ---
CONSULT Date of Consult Date of Consult DATE: 03/19/20 TIME: 10:07 Reason for Consult Reason for Consult: abd pain, VB, PE, pelvic hematoma History of Present Illness Reason for Visit: The pt is 44y who presented to the ER with abd pain and VB s/p LAVH. The pt was admitted last wk (03/11-03/17) for severe anemia and vaginal bleeding. Over the course of the hospitalization the pt ad multiple transfusions (5U pRBC) and underwent a H/S, D&C, failed ablation (03/12) and a LAVH/BS (03/15). On POD #1 the pt was feeling well in the morning but as the day progressed she began to have upper abd pain on the right. The pt was felt to hypovolemic and with fluid replacements overnight the pts symptoms improved. Her repeat labs on POD #2 revealed a Hgb that dropped from 8.3 to 7.6. A repeat Hgb was performed in the afternoon, which ultimately returned at 8.1. Her repeat labs also showed a bump in her Cr to 1.3. The afternoon repeat was found to be 1.0. She was subsequently d/choco on 11. The pt returned to the ER last night with more pain and discomfort when she voided. She also reported that she was experiencing vaginal bleeding. The pain was now lower on the right than what she was experiencing prior to d/c. Labs in the ER revealed a Hgb of 9.1 and Cr 0.7. A CT performed in the ER revealed: 1. Small bilateral pulmonary emboli. 2. 8.6 x 4.8 cm fluid collection in the pelvis. This is consistent with reactive fluid, a resolving hematoma versus an abscess. Correlate for evidence of infection. The pt was subsequently admitted and placed on anticoagulation. The pt states that since being admitted the abd pain is better. She no longer has pain with voiding and has had no more VB. PMH: Denies PSH: 1.) H/S myomectomy, 2.) H/S, D&C, failed ablation, 3.) LAVH/BS Meds: Fe, B12 OBHx: 6mo followed by TSVD x 3 Advanced Practice Rn: LMP 12/28/19 9yo / regular SH: 2PPW, rare EtOH Past Medical History Cardiovascular: No pertinent hx Pulmonary: No pertinent hx GI: No pertinent hx Heme/Onc: No pertinent hx Hepatobiliary: No pertinent hx Psych: No pertinent hx Rheumatologic: No pertinent hx Infectious disease: No pertinent hx Renal/: No pertinent hx Endocrine: No pertinent hx Past Surgical History Past Surgical History: Other Family History Family History: No Significant, Hypertension Social History ALCOHOL: none Drugs: None Current Problem List Problem List Problems Medical Problems: (1) Abdominal pain Status: Acute (2) Pelvic hematoma Status: Acute (3) Pulmonary emboli Status: Acute Current Medications Current Medications Current Medications Fentanyl Citrate (Fentanyl 2ml Vial) 50 mcg 1X ONCE IVP Last administered on 03/18/20at 21:16; Start 03/18/20 at 21:00; Stop 03/18/20 at 21:01; Status DC Ondansetron HCl (Zofran) 4 mg 1X ONCE IVP Last administered on 03/18/20at 21:11; Start 03/18/20 at 21:00; Stop 03/18/20 at 21:01; Status DC Iohexol (Omnipaque 350 Mg/ml) 100 ml 1X ONCE IV Last administered on 03/18/20at 22:39; Start 03/18/20 at 23:00; Stop 03/18/20 at 23:01; Status DC Info (CONTRAST GIVEN -- Rx MONITORING) 1 each PRN DAILY PRN MC SEE COMMENTS; Start 03/18/20 at 22:30; Stop 03/20/20 at 22:29 Ferrous Sulfate (Feosol) 325 mg BID PO ; Start 03/19/20 at 09:00 Oxycodone/ Acetaminophen (Percocet 5/325) 1 tab PRN Q8HRS PRN PO SEVERE PAIN 7- 10; Start 03/18/20 at 23:45 Potassium Chloride (Klor-Con) 10 meq DAILY PO ; Start 03/19/20 at 09:00 Cyanocobalamin (Vitamin B-12) 1,000 mcg DAILY PO ; Start 03/19/20 at 09:00 Multivitamins (Thera M Plus) 1 tab DAILY PO ; Start 03/19/20 at 09:00 Ondansetron HCl (Zofran) 4 mg PRN Q8HRS PRN IV NAUSEA/VOMITING 1ST CHOICE; Start 03/19/20 at 00:00; Stop 03/19/20 at 23:59 Fentanyl Citrate (Fentanyl 2ml Vial) 50 mcg PRN Q1HR PRN IV SEVERE PAIN 7-10 Last administered on 03/19/20at 02:52; Start 03/19/20 at 00:00; Stop 03/19/20 at 23:59 Sodium Chloride 1,000 ml @ 75 mls/hr [id number] IV Last administered on 03/19/20at 00:39; Start 03/18/20 at 23:50; Stop 03/19/20 at 23:49 Heparin Sodium/ Dextrose 250 ml @ 0 mls/hr CONT PRN IV PER PROTOCOL Last administered on 03/19/20at 00:51; Start 03/19/20 at 00:00; Stop 03/19/20 at 01:10; Status DC Heparin Sodium (Porcine) (Heparin Sodium) 2,350 unit PRN Q6HRS PRN IV FOR UFH LEVEL LESS THAN 0.2; Start 03/19/20 at 00:00; Stop 03/19/20 at 01:10; Status DC Heparin Sodium (Porcine) (Heparin Sodium) 1,200 unit PRN Q6HRS PRN IV FOR UFH LEVEL 0.2 - 0.29; Start 03/19/20 at 00:00; Stop 03/19/20 at 01:10; Status DC Info (Anti-Coagulation Monitoring By Pharmacy) 1 each PRN DAILY PRN MC SEE COMMENTS Last administered on 03/19/20at 01:51; Start 03/19/20 at 00:15 Heparin Sodium/ Dextrose 250 ml @ 0 mls/hr CONT PRN IV PER PROTOCOL Last administered on 03/19/20at 01:26; Start 03/19/20 at 01:15 Heparin Sodium (Porcine) (Heparin Sodium) 2,350 unit PRN Q6HRS PRN IV FOR UFH LEVEL LESS THAN 0.2 Last administered on 03/19/20at 01:30; Start 03/19/20 at 01:15 Heparin Sodium (Porcine) (Heparin Sodium) 1,150 unit PRN Q6HRS PRN IV FOR UFH LEVEL 0.2 - 0.29; Start 03/19/20 at 01:15 Acetaminophen (Tylenol) 650 mg PRN Q6HRS PRN PO MILD PAIN / TEMP > 100.3'F; Start 03/19/20 at 03:30 Acetaminophen (Tylenol Supp) 650 mg PRN Q6HRS PRN MA MILD PAIN / TEMP > 100.3'F Last administered on 03/19/20at 03:32; Start 03/19/20 at 03:30 Ceftriaxone Sodium (Rocephin) 1 gm Q24H IVP ; Start 03/19/20 at 09:00; Stop 03/21/20 at 08:59 Active Scripts Active B12 Active (Mecobalamin) 1,000 Mcg Tab.chew 1,000 Mcg PO DAILY Ferrous Sulfate 325 Mg Tablet 1 Tab PO BID Percocet 5-325 Mg Tablet (Oxycodone/Acetaminophen) 1 Each Tablet 1 Tab PO PRN Q8HRS PRN Ibuprofen 800 Mg Tablet 800 Mg PO PRN Q8HRS PRN Potassium Chloride (Potassium Chloride) 10 Meq Tab.sr.24h 10 Meq PO DAILY Naproxen 500 Mg Tablet 1 Tab PO BID [place] 5-325 Tablet (Acetaminophen/Hydrocodone Bitart) 1 Each Tablet 1 Tab PO Q6- 8HRS PRN Medroxyprogesterone Acetate 2.5 Mg Tablet 5 Mg PO DAILY 90 Days Reported Iron (Ferrous Sulfate) 325 Mg Tablet 325 Mg PO DAILY Multivitamins (Multivitamin) 1 Each Tablet 1 Tab PO DAILY Allergies Allergies: Coded Allergies: Penicillins (Verified Allergy, Intermediate, 03/15/20) Physical Exam General: Alert, Oriented X3, Cooperative, No acute distress HEENT: PERRLA, Mucous membr. moist/pink Lungs: Clear to auscultation, Normal air movement Heart: Regular rate, Normal S1, Normal S2, No murmurs Abdomen: Normal bowel sounds, Soft, No tenderness, No hepatosplenomegaly, No masses Extremities: No clubbing, No cyanosis, No edema, Normal pulses, No tenderness/swelling Skin: No rashes, No breakdown Neuro: Normal gait, Normal speech, Normal tone, Sensation intact, Reflexes 2+ Vitals VITALS Vital Signs Date Time Temp Pulse Resp B/P (MAP) Pulse Ox O2 Delivery O2 Flow Rate FiO2 03/19/20 07:00 98.2 96 18 110/53 (72) 94 Room Air 98.2 Labs Labs Laboratory Tests Test 03/18/20 20:55 03/18/20 23:50 03/19/20 08:00 White Blood Count 11.3 x10^3/uL (4.0-11.0) 10.6 x10^3/uL (4.0-11.0) Red Blood Count 3.53 x10^6/uL (3.50-5.40) 3.07 x10^6/uL (3.50-5.40) Hemoglobin 9.1 g/dL (12.0-15.5) 8.1 g/dL (12.0-15.5) Hematocrit 28.6 % (36.0-47.0) 25.0 % (36.0-47.0) Mean Corpuscular Volume 81 fL (79-100) 82 fL (79-100) Mean Corpuscular Hemoglobin 26 pg (25-35) 26 pg (25-35) Mean Corpuscular Hemoglobin Concent 32 g/dL (31-37) 32 g/dL (31-37) Red Cell Distribution Width 28.8 % (11.5-14.5) 29.0 % (11.5-14.5) Platelet Count 271 x10^3/uL (140-400) 228 x10^3/uL (140-400) Neutrophils (%) (Auto) 91 % (31-73) 87 % (31-73) Lymphocytes (%) (Auto) 3 % (24-48) 7 % (24-48) Monocytes (%) (Auto) 5 % (0-9) 6 % (0-9) Eosinophils (%) (Auto) 0 % (0-3) 0 % (0-3) Basophils (%) (Auto) 0 % (0-3) 0 % (0-3) Neutrophils # (Auto) 10.3 x10^3/uL (1.8-7.7) 9.2 x10^3/uL (1.8-7.7) Lymphocytes # (Auto) 0.4 x10^3/uL (1.0-4.8) 0.7 x10^3/uL (1.0-4.8) Monocytes # (Auto) 0.6 x10^3/uL (0.0-1.1) 0.6 x10^3/uL (0.0-1.1) Eosinophils # (Auto) 0.0 x10^3/uL (0.0-0.7) 0.0 x10^3/uL (0.0-0.7) Basophils # (Auto) 0.1 x10^3/uL (0.0-0.2) 0.0 x10^3/uL (0.0-0.2) Segmented Neutrophils % 87 % (35-66) Band Neutrophils % 4 % (0-9) Lymphocytes % 4 % (24-48) Atypical Lymphocytes % (Manual) 1 % (0-0) Monocytes % 3 % (0-10) Basophils % 1 % (0-3) Platelet Estimate Adequate (ADEQUATE) Giant Platelets Few Polychromasia Slight Hypochromasia Slight Anisocytosis Marked Prothrombin Time 14.5 SEC (11.7-14.0) Prothromb Time International Ratio 1.2 (0.8-1.1) Activated Partial Thromboplast Time 30 SEC (24-38) Sodium Level 138 mmol/L (136-145) 137 mmol/L (136-145) Potassium Level 3.5 mmol/L (3.5-5.1) 3.2 mmol/L (3.5-5.1) Chloride Level 104 mmol/L (98-107) 102 mmol/L (98-107) Carbon Dioxide Level 25 mmol/L (21-32) 24 mmol/L (21-32) Anion Gap 9 (6-14) 11 (6-14) Blood Urea Nitrogen 8 mg/dL (7-20) 6 mg/dL (7-20) Creatinine 0.7 mg/dL (0.6-1.0) 0.6 mg/dL (0.6-1.0) Estimated GFR (Cockcroft-Gault) 90.5 108.1 BUN/Creatinine Ratio 11 (6-20) Glucose Level 117 mg/dL (70-99) 91 mg/dL (70-99) Calcium Level 8.5 mg/dL (8.5-10.1) 7.9 mg/dL (8.5-10.1) Magnesium Level 2.0 mg/dL (1.8-2.4) Total Bilirubin 0.4 mg/dL (0.2-1.0) Aspartate Amino Transf (AST/SGOT) 18 U/L (15-37) Alanine Aminotransferase (ALT/SGPT) 29 U/L (14-59) Alkaline Phosphatase 62 U/L (46-116) Total Protein 6.8 g/dL (6.4-8.2) Albumin 2.9 g/dL (3.4-5.0) Albumin/Globulin Ratio 0.7 (1.0-1.7) Urine Collection Type Unknown Urine Color Yellow Urine Clarity Clear Urine pH 6.0 (<5.0-8.0) Urine Specific Bison >=1.030 (1.000-1.030) Urine Protein 100 mg/dL (NEG-TRACE) Urine Glucose (UA) Negative mg/dL (NEG) Urine Ketones (Stick) 40 mg/dL (NEG) Urine Blood Large (NEG) Urine Nitrite Positive (NEG) Urine Bilirubin Negative (NEG) Urine Urobilinogen Dipstick 1.0 mg/dL (0.2 mg/dL) Urine Leukocyte Esterase Negative (NEG) Urine RBC 20-40 /HPF (0-2) Urine WBC 20-40 /HPF (0-4) Urine Squamous Epithelial Cells Few /LPF Urine Bacteria Many /HPF (0-FEW) Urine Mucus Mod /LPF Heparin Anti-Xa Act, Unfractionated 0.26 IU/mL (0.30-0.70) Laboratory Tests Test 03/18/20 20:55 03/18/20 23:50 03/19/20 08:00 White Blood Count 11.3 x10^3/uL (4.0-11.0) 10.6 x10^3/uL (4.0-11.0) Red Blood Count 3.53 x10^6/uL (3.50-5.40) 3.07 x10^6/uL (3.50-5.40) Hemoglobin 9.1 g/dL (12.0-15.5) 8.1 g/dL (12.0-15.5) Hematocrit 28.6 % (36.0-47.0) 25.0 % (36.0-47.0) Mean Corpuscular Volume 81 fL (79-100) 82 fL (79-100) Mean Corpuscular Hemoglobin 26 pg (25-35) 26 pg (25-35) Mean Corpuscular Hemoglobin Concent 32 g/dL (31-37) 32 g/dL (31-37) Red Cell Distribution Width 28.8 % (11.5-14.5) 29.0 % (11.5-14.5) Platelet Count 271 x10^3/uL (140-400) 228 x10^3/uL (140-400) Neutrophils (%) (Auto) 91 % (31-73) 87 % (31-73) Lymphocytes (%) (Auto) 3 % (24-48) 7 % (24-48) Monocytes (%) (Auto) 5 % (0-9) 6 % (0-9) Eosinophils (%) (Auto) 0 % (0-3) 0 % (0-3) Basophils (%) (Auto) 0 % (0-3) 0 % (0-3) Neutrophils # (Auto) 10.3 x10^3/uL (1.8-7.7) 9.2 x10^3/uL (1.8-7.7) Lymphocytes # (Auto) 0.4 x10^3/uL (1.0-4.8) 0.7 x10^3/uL (1.0-4.8) Monocytes # (Auto) 0.6 x10^3/uL (0.0-1.1) 0.6 x10^3/uL (0.0-1.1) Eosinophils # (Auto) 0.0 x10^3/uL (0.0-0.7) 0.0 x10^3/uL (0.0-0.7) Basophils # (Auto) 0.1 x10^3/uL (0.0-0.2) 0.0 x10^3/uL (0.0-0.2) Segmented Neutrophils % 87 % (35-66) Band Neutrophils % 4 % (0-9) Lymphocytes % 4 % (24-48) Atypical Lymphocytes % (Manual) 1 % (0-0) Monocytes % 3 % (0-10) Basophils % 1 % (0-3) Platelet Estimate Adequate (ADEQUATE) Giant Platelets Few Polychromasia Slight Hypochromasia Slight Anisocytosis Marked Prothrombin Time 14.5 SEC (11.7-14.0) Prothromb Time International Ratio 1.2 (0.8-1.1) Activated Partial Thromboplast Time 30 SEC (24-38) Sodium Level 138 mmol/L (136-145) 137 mmol/L (136-145) Potassium Level 3.5 mmol/L (3.5-5.1) 3.2 mmol/L (3.5-5.1) Chloride Level 104 mmol/L (98-107) 102 mmol/L (98-107) Carbon Dioxide Level 25 mmol/L (21-32) 24 mmol/L (21-32) Anion Gap 9 (6-14) 11 (6-14) Blood Urea Nitrogen 8 mg/dL (7-20) 6 mg/dL (7-20) Creatinine 0.7 mg/dL (0.6-1.0) 0.6 mg/dL (0.6-1.0) Estimated GFR (Cockcroft-Gault) 90.5 108.1 BUN/Creatinine Ratio 11 (6-20) Glucose Level 117 mg/dL (70-99) 91 mg/dL (70-99) Calcium Level 8.5 mg/dL (8.5-10.1) 7.9 mg/dL (8.5-10.1) Magnesium Level 2.0 mg/dL (1.8-2.4) Total Bilirubin 0.4 mg/dL (0.2-1.0) Aspartate Amino Transf (AST/SGOT) 18 U/L (15-37) Alanine Aminotransferase (ALT/SGPT) 29 U/L (14-59) Alkaline Phosphatase 62 U/L (46-116) Total Protein 6.8 g/dL (6.4-8.2) Albumin 2.9 g/dL (3.4-5.0) Albumin/Globulin Ratio 0.7 (1.0-1.7) Urine Collection Type Unknown Urine Color Yellow Urine Clarity Clear Urine pH 6.0 (<5.0-8.0) Urine Specific [place] >=1.030 (1.000-1.030) Urine Protein 100 mg/dL (NEG-TRACE) Urine Glucose (UA) Negative mg/dL (NEG) Urine Ketones (Stick) 40 mg/dL (NEG) Urine Blood Large (NEG) Urine Nitrite Positive (NEG) Urine Bilirubin Negative (NEG) Urine Urobilinogen Dipstick 1.0 mg/dL (0.2 mg/dL) Urine Leukocyte Esterase Negative (NEG) Urine RBC 20-40 /HPF (0-2) Urine WBC 20-40 /HPF (0-4) Urine Squamous Epithelial Cells Few /LPF Urine Bacteria Many /HPF (0-FEW) Urine Mucus Mod /LPF Heparin Anti-Xa Act, Unfractionated 0.26 IU/mL (0.30-0.70) Assessment/Plan Assessment/Plan Assessment: 44y admitted with abd pain and VB Recommendations: 1.) PO pain improved since admission. May be related to blood in pelvis. 2.) Hematoma/VB s/p LAVH/BS on 03/15, not current bleeding, 8.6 x 4.8 cm fluid collection, repeat Hgb this am was 8.1 after hydration. Stable from d/c Hgb. Pt does not appear to be actively bleeding. No intervention (surgical or interventional radiology) is necessary at this time. Should not interfere with anticoagulation regime. Would recheck Hgb daily to ensure remains stable on an ticoagulation. 3.) PE - Small bilateral pulmonary emboli, currently on anticoagulation (Heparin), may need to transition to Lovenox or Coumadin once sure that Hgb is stable on therapeutic anticoagulation. 4.) UTI UA suspicious for infection, WBC 11.3 on admission, on [place], no longer reports dysuria 5.) Anemia Hgb similar that of d/c 8.1, d/choco on Fe and B12 6.) Tob use STACI CHURCHILL MD Mar 19, 2020 10:08
[2020-03-19] MEDS: HEPARIN for IV BOLUS 10,000 UNIT/10 ML VIAL. IV PRN ×2 (10:33→23:43)
[2020-03-19] MEDS: cefTRIAXone IV Push 1 GM VIAL. IVP SCH (10:34)
[2020-03-19 11:00] VITALS: BP 104/67
[2020-03-19] MEDS: MULTIVITAMIN with MINERAL TABLET. PO SCH (13:25)
[2020-03-19] MEDS: FERROUS SULFATE 325 MG TABLET. PO SCH ×2 (13:25→22:22)
[2020-03-19] MEDS: POTASSIUM CHLORIDE 10 MEQ TABLET.ER. PO SCH (13:25)
[2020-03-19] MEDS: CYANOCOBALAMIN (VITAMIN B-12) 1,000 MCG TABLET. PO SCH (13:25)
[2020-03-19 15:00] VITALS: BP 114/63
--- NOTE | 2020-03-19 16:04 | NUR ---
SW following. Spoke with RN and reviewed chart. Pt from home. SW met with pt and pt's son. Pt on room air, heparin drip. 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 Pt declined the need for HH on discharge. Pt self-pay and [facility] is following. Pt will likely discharge home self-care. No SW discharge needs identified at this time. SW available as needed.
[2020-03-19 19:00] VITALS: BP 101/55
[2020-03-19] MEDS: LACTOBACILLUS RHAMNOSUS GG 1 CAPSULE. PO SCH (22:22)
[2020-03-19 23:00] VITALS: BP 112/59
[2020-03-20 03:00] VITALS: BP 106/59
[2020-03-20 05:00] LABS: BASO % 0 % (0-3); EOS # 0.1 x10^3/uL (0.0-0.7); EOS % 1 % (0-3); HEMATOCRIT 24.7 % (36.0-47.0); LYMPH # 0.5 x10^3/uL (1.0-4.8); LYMPH % 4 % (24-48); MEAN CORPUSCULAR HEMOGLOBIN 26 pg (25-35); MEAN CORPUSCULAR HGB CONC 33 g/dL (31-37); MEAN CORPUSCULAR VOLUME 81 fL (79-100); MONO # 0.5 x10^3/uL (0.0-1.1); MONO % 4 % (0-9); NEUT # 11.9 x10^3/uL (1.8-7.7); NEUT % 91 % (31-73); PLATELET COUNT 243 x10^3/uL (140-400); RED BLOOD COUNT 3.07 x10^6/uL (3.50-5.40)
[2020-03-20 05:18] LABS: CREATININE 0.6 mg/dL (0.6-1.0); GFR 108.1
[2020-03-20 07:00] VITALS: BP 98/44
--- NOTE | 2020-03-20 07:48 | PDOC ---
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 Pain has improved otherwise Objective: Vital Signs: Vital Signs Date Time Temp Pulse Resp B/P (MAP) Pulse Ox O2 Delivery O2 Flow Rate FiO2 03/19/20 07:00 98.2 96 18 110/53 (72) 94 Room Air 98.2 Vital Signs Date Time Temp Pulse Resp B/P (MAP) Pulse Ox O2 Delivery O2 Flow Rate FiO2 03/20/20 03:00 98.7 98 20 106/59 (75) 95 Room Air 98.7 Labs: Laboratory Tests Test 03/19/20 08:00 03/19/20 17:00 03/19/20 21:50 03/20/20 03:40 White Blood Count 10.6 x10^3/uL (4.0-11.0) 13.0 x10^3/uL (4.0-11.0) H Red Blood Count 3.07 x10^6/uL (3.50-5.40) L 3.07 x10^6/uL (3.50-5.40) L Hemoglobin 8.1 g/dL (12.0-15.5) L 8.0 g/dL (12.0-15.5) L Hematocrit 25.0 % (36.0-47.0) L 24.7 % (36.0-47.0) L Mean Corpuscular Volume 82 fL (79-100) 81 fL (79-100) Mean Corpuscular Hemoglobin 26 pg (25-35) 26 pg (25-35) Mean Corpuscular Hemoglobin Concent 32 g/dL (31-37) 33 g/dL (31-37) Red Cell Distribution Width 29.0 % (11.5-14.5) H 28.0 % (11.5-14.5) H Platelet Count 228 x10^3/uL (140-400) 243 x10^3/uL (140-400) Neutrophils (%) (Auto) 87 % (31-73) H 91 % (31-73) H Lymphocytes (%) (Auto) 7 % (24-48) L 4 % (24-48) L Monocytes (%) (Auto) 6 % (0-9) 4 % (0-9) Eosinophils (%) (Auto) 0 % (0-3) 1 % (0-3) Basophils (%) (Auto) 0 % (0-3) 0 % (0-3) Neutrophils # (Auto) 9.2 x10^3/uL (1.8-7.7) H 11.9 x10^3/uL (1.8-7.7) H Lymphocytes # (Auto) 0.7 x10^3/uL (1.0-4.8) L 0.5 x10^3/uL (1.0-4.8) L Monocytes # (Auto) 0.6 x10^3/uL (0.0-1.1) 0.5 x10^3/uL (0.0-1.1) Eosinophils # (Auto) 0.0 x10^3/uL (0.0-0.7) 0.1 x10^3/uL (0.0-0.7) Basophils # (Auto) 0.0 x10^3/uL (0.0-0.2) 0.0 x10^3/uL (0.0-0.2) Heparin Anti-Xa Act, Unfractionated 0.26 IU/mL (0.30-0.70) L 0.30 IU/mL (0.30-0.70) 0.27 IU/mL (0.30-0.70) L 0.23 IU/mL (0.30-0.70) L Sodium Level 137 mmol/L (136-145) 137 mmol/L (136-145) Potassium Level 3.2 mmol/L (3.5-5.1) L 3.0 mmol/L (3.5-5.1) L Chloride Level 102 mmol/L (98-107) 101 mmol/L (98-107) Carbon Dioxide Level 24 mmol/L (21-32) 24 mmol/L (21-32) Anion Gap 11 (6-14) 12 (6-14) Blood Urea Nitrogen 6 mg/dL (7-20) L 6 mg/dL (7-20) L Creatinine 0.6 mg/dL (0.6-1.0) 0.6 mg/dL (0.6-1.0) Estimated GFR (Cockcroft-Gault) 108.1 108.1 Glucose Level 91 mg/dL (70-99) 121 mg/dL (70-99) H Calcium Level 7.9 mg/dL (8.5-10.1) L 8.0 mg/dL (8.5-10.1) L Procalcitonin < 0.10 ng/mL (0.00-0.10) Test 03/20/20 06:14 Heparin Anti-Xa Act, Unfractionated 0.37 IU/mL (0.30-0.70) Laboratory Tests 03/19/20 08:00 03/20/20 03:40 Laboratory Tests 03/19/20 08:00 03/20/20 03:40 Laboratory Tests 03/20/20 03:40 Physical Exam: GENERAL: No apparent distress. Alert and oriented. HEENT: Head normocephalic, atraumatic. NECK: Supple LUNGS: Clear to auscultation. HEART: RRR, S1, S2 present, pulses intact ABDOMEN: Soft, positive bowel sounds. EXTREMITIES: No cyanosis or edema. NEUROLOGIC: Normal speech, normal tone PSYCHIATRIC: Normal affect, normal mood. SKIN: No ulceration. Assessment & Plan: A/P 44y admitted with abd pain and VB 1.) PO pain improved since admission. May be related to blood in pelvis. 2.) Hematoma/VB s/p LAVH/BS on 03/15, not current bleeding, 8.6 x 4.8 cm fluid collection, Hgb stable at ~8 since starting anticoagulation regime 3.) PE - Small bilateral pulmonary emboli, currently on anticoagulation (Heparin), may need to transition to Lovenox or Coumadin once sure that Hgb is stable on therapeutic anticoagulation. 4.) Social since selfpay, asked social work to help provide funding for anticoagulation and necessary outpt f/u 5.) UTI WBC up to 13.0, Tmax 100.6 (03/19 at 2300), on [place], no longer reports dysuria 6.) Anemia Hgb 8.1 -> 8.0, d/choco on Fe and B12 7.) Tob use STACI CHURCHILL MD Mar 20, 2020 07:48
[2020-03-20] MEDS: FERROUS SULFATE 325 MG TABLET. PO SCH (09:57)
[2020-03-20] MEDS: CYANOCOBALAMIN (VITAMIN B-12) 1,000 MCG TABLET. PO SCH (09:57)
[2020-03-20] MEDS: POTASSIUM CHLORIDE 10 MEQ TABLET.ER. PO SCH (09:58)
[2020-03-20] MEDS: MULTIVITAMIN with MINERAL TABLET. PO SCH (09:58)
[2020-03-20] MEDS: LACTOBACILLUS RHAMNOSUS GG 1 CAPSULE. PO SCH (09:58)
[2020-03-20] MEDS: cefTRIAXone IV Push 1 GM VIAL. IVP SCH (09:58)
[2020-03-20 11:00] VITALS: BP 99/40
--- NOTE | 2020-03-20 14:09 | PDOC ---
[employer] PROGRESS NOTE Date of Service DOS: DATE: 03/20/20 TIME: 14:07 History of Present Illness History of Present Illness Patient is a 44-year-old female who is status post recent hysterectomy, who presents with complaint of abdominal pain and vaginal bleeding. Patient had a hysterectomy on 03/15/2020, and since that time has been complaining of worsening abdominal pain with vaginal bleeding. She reports abdominal pain 8/10, and soaking through multiple pads since her surgery. Upon evaluation in the ER, she also noted some chest pain and shortness of breath that was worse with deep inspiration and exertion. Patient also reports some burning on urination for the past 2 days, with associated nausea. She denies any vomiting, headaches, hemoptysis. 03/20/20 Patient states she is feeling well. She is breathing on room air. Abdominal pain and bleeding improved. Discussed with top case assembler and RN. Will provide her samples for Eliquis for 3 months. Stable for discharge. Vitals/I&O Vitals/I&O: Vital Signs Date Time Temp Pulse Resp B/P (MAP) Pulse Ox O2 Delivery O2 Flow Rate FiO2 03/20/20 07:00 99.6 88 18 98/44 (62) 97 Room Air 99.6 I & O 03/19/20 03/19/20 03/20/20 15:00 23:00 07:00 Intake Total 100 ml 100 ml Balance 100 ml 100 ml Physical Exam General: Alert, Oriented X3, Cooperative, No acute distress Heart: Regular rate, Normal S1, Normal S2, No murmurs Abdomen: Normal bowel sounds, Soft, No tenderness, No hepatosplenomegaly, No masses Extremities: No clubbing, No cyanosis, No edema, Normal pulses, No tenderness/swelling Skin: No rashes, No breakdown Labs Labs: Laboratory Tests Test 03/19/20 17:00 03/19/20 21:50 03/20/20 03:40 03/20/20 06:14 Heparin Anti-Xa Act, Unfractionated 0.30 IU/mL (0.30-0.70) 0.27 IU/mL (0.30-0.70) 0.23 IU/mL (0.30-0.70) 0.37 IU/mL (0.30-0.70) White Blood Count 13.0 x10^3/uL (4.0-11.0) Red Blood Count 3.07 x10^6/uL (3.50-5.40) Hemoglobin 8.0 g/dL (12.0-15.5) Hematocrit 24.7 % (36.0-47.0) Mean Corpuscular Volume 81 fL (79-100) Mean Corpuscular Hemoglobin 26 pg (25-35) Mean Corpuscular Hemoglobin Concent 33 g/dL (31-37) Red Cell Distribution Width 28.0 % (11.5-14.5) Platelet Count 243 x10^3/uL (140-400) Neutrophils (%) (Auto) 91 % (31-73) Lymphocytes (%) (Auto) 4 % (24-48) Monocytes (%) (Auto) 4 % (0-9) Eosinophils (%) (Auto) 1 % (0-3) Basophils (%) (Auto) 0 % (0-3) Neutrophils # (Auto) 11.9 x10^3/uL (1.8-7.7) Lymphocytes # (Auto) 0.5 x10^3/uL (1.0-4.8) Monocytes # (Auto) 0.5 x10^3/uL (0.0-1.1) Eosinophils # (Auto) 0.1 x10^3/uL (0.0-0.7) Basophils # (Auto) 0.0 x10^3/uL (0.0-0.2) Sodium Level 137 mmol/L (136-145) Potassium Level 3.0 mmol/L (3.5-5.1) Chloride Level 101 mmol/L (98-107) Carbon Dioxide Level 24 mmol/L (21-32) Anion Gap 12 (6-14) Blood Urea Nitrogen 6 mg/dL (7-20) Creatinine 0.6 mg/dL (0.6-1.0) Estimated GFR (Cockcroft-Gault) 108.1 Glucose Level 121 mg/dL (70-99) Calcium Level 8.0 mg/dL (8.5-10.1) Test 03/20/20 12:35 Heparin Anti-Xa Act, Unfractionated < 0.10 IU/mL (0.30-0.70) Review of Systems Review of Systems: Denies shortness of breath, denies fever, denies chest pain. Assessment and Plan Assessmemt and Plan Problems Medical Problems: (1) Abdominal pain Status: Acute (2) Pelvic hematoma Status: Acute (3) Pulmonary emboli Status: Acute Comment Review of Relevant I have reviewed the following items cecil (where applicable) has been applied. Medications: Current Medications Medications (Trade) Dose Ordered Sig/Abiel Route PRN Reason Start Time Stop Time Status Last Admin Dose Admin Lactobacillus Rhamnosus (Culturelle) 1 cap BID PO 03/19/20 21:00 03/20/20 09:58 Justifications for Admission Other Justification CM MCGILL MD Mar 20, 2020 14:09
[2020-03-20] MEDS ORDERED: APIX5TAB PO (14:23)
--- NOTE | 2020-03-20 14:30 | PDOC3 ---
Discharge Summary Visit Information Date of Admission: Mar 19, 2020 Date of Discharge: Mar 20, 2020 Final Diagnosis Problems Medical Problems: (1) Abdominal pain Status: Acute (2) Pelvic hematoma Status: Acute (3) Pulmonary emboli Status: Acute Brief Hospital Course Allergies Allergies Coded Allergies Type Severity Reaction Last Updated Verified Penicillins Allergy Intermediate 03/15/20 Yes Vital Signs Vital Signs Date Time Temp Pulse Resp B/P (MAP) Pulse Ox O2 Delivery O2 Flow Rate FiO2 03/20/20 11:00 98.1 99 18 99/40 (59) 98 Room Air 98.1 Lab Results Laboratory Tests Test 03/18/20 20:55 03/18/20 23:50 03/19/20 08:00 03/19/20 17:00 White Blood Count 11.3 x10^3/uL (4.0-11.0) 10.6 x10^3/uL (4.0-11.0) Red Blood Count 3.53 x10^6/uL (3.50-5.40) 3.07 x10^6/uL (3.50-5.40) Hemoglobin 9.1 g/dL (12.0-15.5) 8.1 g/dL (12.0-15.5) Hematocrit 28.6 % (36.0-47.0) 25.0 % (36.0-47.0) Mean Corpuscular Volume 81 fL (79-100) 82 fL (79-100) Mean Corpuscular Hemoglobin 26 pg (25-35) 26 pg (25-35) Mean Corpuscular Hemoglobin Concent 32 g/dL (31-37) 32 g/dL (31-37) Red Cell Distribution Width 28.8 % (11.5-14.5) 29.0 % (11.5-14.5) Platelet Count 271 x10^3/uL (140-400) 228 x10^3/uL (140-400) Neutrophils (%) (Auto) 91 % (31-73) 87 % (31-73) Lymphocytes (%) (Auto) 3 % (24-48) 7 % (24-48) Monocytes (%) (Auto) 5 % (0-9) 6 % (0-9) Eosinophils (%) (Auto) 0 % (0-3) 0 % (0-3) Basophils (%) (Auto) 0 % (0-3) 0 % (0-3) Neutrophils # (Auto) 10.3 x10^3/uL (1.8-7.7) 9.2 x10^3/uL (1.8-7.7) Lymphocytes # (Auto) 0.4 x10^3/uL (1.0-4.8) 0.7 x10^3/uL (1.0-4.8) Monocytes # (Auto) 0.6 x10^3/uL (0.0-1.1) 0.6 x10^3/uL (0.0-1.1) Eosinophils # (Auto) 0.0 x10^3/uL (0.0-0.7) 0.0 x10^3/uL (0.0-0.7) Basophils # (Auto) 0.1 x10^3/uL (0.0-0.2) 0.0 x10^3/uL (0.0-0.2) Segmented Neutrophils % 87 % (35-66) Band Neutrophils % 4 % (0-9) Lymphocytes % 4 % (24-48) Atypical Lymphocytes % (Manual) 1 % (0-0) Monocytes % 3 % (0-10) Basophils % 1 % (0-3) Platelet Estimate Adequate (ADEQUATE) Giant Platelets Few Polychromasia Slight Hypochromasia Slight Anisocytosis Marked Prothrombin Time 14.5 SEC (11.7-14.0) Prothromb Time International Ratio 1.2 (0.8-1.1) Activated Partial Thromboplast Time 30 SEC (24-38) Sodium Level 138 mmol/L (136-145) 137 mmol/L (136-145) Potassium Level 3.5 mmol/L (3.5-5.1) 3.2 mmol/L (3.5-5.1) Chloride Level 104 mmol/L (98-107) 102 mmol/L (98-107) Carbon Dioxide Level 25 mmol/L (21-32) 24 mmol/L (21-32) Anion Gap 9 (6-14) 11 (6-14) Blood Urea Nitrogen 8 mg/dL (7-20) 6 mg/dL (7-20) Creatinine 0.7 mg/dL (0.6-1.0) 0.6 mg/dL (0.6-1.0) Estimated GFR (Cockcroft-Gault) 90.5 108.1 BUN/Creatinine Ratio 11 (6-20) Glucose Level 117 mg/dL (70-99) 91 mg/dL (70-99) Calcium Level 8.5 mg/dL (8.5-10.1) 7.9 mg/dL (8.5-10.1) Magnesium Level 2.0 mg/dL (1.8-2.4) Total Bilirubin 0.4 mg/dL (0.2-1.0) Aspartate Amino Transf (AST/SGOT) 18 U/L (15-37) Alanine Aminotransferase (ALT/SGPT) 29 U/L (14-59) Alkaline Phosphatase 62 U/L (46-116) Total Protein 6.8 g/dL (6.4-8.2) Albumin 2.9 g/dL (3.4-5.0) Albumin/Globulin Ratio 0.7 (1.0-1.7) Urine Collection Type Unknown Urine Color Yellow Urine Clarity Clear Urine pH 6.0 (<5.0-8.0) Urine Specific [place] >=1.030 (1.000-1.030) Urine Protein 100 mg/dL (NEG-TRACE) Urine Glucose (UA) Negative mg/dL (NEG) Urine Ketones (Stick) 40 mg/dL (NEG) Urine Blood Large (NEG) Urine Nitrite Positive (NEG) Urine Bilirubin Negative (NEG) Urine Urobilinogen Dipstick 1.0 mg/dL (0.2 mg/dL) Urine Leukocyte Esterase Negative (NEG) Urine RBC 20-40 /HPF (0-2) Urine WBC 20-40 /HPF (0-4) Urine Squamous Epithelial Cells Few /LPF Urine Bacteria Many /HPF (0-FEW) Urine Mucus Mod /LPF Heparin Anti-Xa Act, Unfractionated 0.26 IU/mL (0.30-0.70) 0.30 IU/mL (0.30-0.70) Procalcitonin < 0.10 ng/mL (0.00-0.10) Test 03/19/20 21:50 03/20/20 03:40 03/20/20 06:14 03/20/20 12:35 Heparin Anti-Xa Act, Unfractionated 0.27 IU/mL (0.30-0.70) 0.23 IU/mL (0.30-0.70) 0.37 IU/mL (0.30-0.70) < 0.10 IU/mL (0.30-0.70) White Blood Count 13.0 x10^3/uL (4.0-11.0) Red Blood Count 3.07 x10^6/uL (3.50-5.40) Hemoglobin 8.0 g/dL (12.0-15.5) Hematocrit 24.7 % (36.0-47.0) Mean Corpuscular Volume 81 fL (79-100) Mean Corpuscular Hemoglobin 26 pg (25-35) Mean Corpuscular Hemoglobin Concent 33 g/dL (31-37) Red Cell Distribution Width 28.0 % (11.5-14.5) Platelet Count 243 x10^3/uL (140-400) Neutrophils (%) (Auto) 91 % (31-73) Lymphocytes (%) (Auto) 4 % (24-48) Monocytes (%) (Auto) 4 % (0-9) Eosinophils (%) (Auto) 1 % (0-3) Basophils (%) (Auto) 0 % (0-3) Neutrophils # (Auto) 11.9 x10^3/uL (1.8-7.7) Lymphocytes # (Auto) 0.5 x10^3/uL (1.0-4.8) Monocytes # (Auto) 0.5 x10^3/uL (0.0-1.1) Eosinophils # (Auto) 0.1 x10^3/uL (0.0-0.7) Basophils # (Auto) 0.0 x10^3/uL (0.0-0.2) Sodium Level 137 mmol/L (136-145) Potassium Level 3.0 mmol/L (3.5-5.1) Chloride Level 101 mmol/L (98-107) Carbon Dioxide Level 24 mmol/L (21-32) Anion Gap 12 (6-14) Blood Urea Nitrogen 6 mg/dL (7-20) Creatinine 0.6 mg/dL (0.6-1.0) Estimated GFR (Cockcroft-Gault) 108.1 Glucose Level 121 mg/dL (70-99) Calcium Level 8.0 mg/dL (8.5-10.1) Laboratory Tests Test 03/19/20 17:00 03/19/20 21:50 03/20/20 03:40 03/20/20 06:14 Heparin Anti-Xa Act, Unfractionated 0.30 IU/mL (0.30-0.70) 0.27 IU/mL (0.30-0.70) 0.23 IU/mL (0.30-0.70) 0.37 IU/mL (0.30-0.70) White Blood Count 13.0 x10^3/uL (4.0-11.0) Red Blood Count 3.07 x10^6/uL (3.50-5.40) Hemoglobin 8.0 g/dL (12.0-15.5) Hematocrit 24.7 % (36.0-47.0) Mean Corpuscular Volume 81 fL (79-100) Mean Corpuscular Hemoglobin 26 pg (25-35) Mean Corpuscular Hemoglobin Concent 33 g/dL (31-37) Red Cell Distribution Width 28.0 % (11.5-14.5) Platelet Count 243 x10^3/uL (140-400) Neutrophils (%) (Auto) 91 % (31-73) Lymphocytes (%) (Auto) 4 % (24-48) Monocytes (%) (Auto) 4 % (0-9) Eosinophils (%) (Auto) 1 % (0-3) Basophils (%) (Auto) 0 % (0-3) Neutrophils # (Auto) 11.9 x10^3/uL (1.8-7.7) Lymphocytes # (Auto) 0.5 x10^3/uL (1.0-4.8) Monocytes # (Auto) 0.5 x10^3/uL (0.0-1.1) Eosinophils # (Auto) 0.1 x10^3/uL (0.0-0.7) Basophils # (Auto) 0.0 x10^3/uL (0.0-0.2) Sodium Level 137 mmol/L (136-145) Potassium Level 3.0 mmol/L (3.5-5.1) Chloride Level 101 mmol/L (98-107) Carbon Dioxide Level 24 mmol/L (21-32) Anion Gap 12 (6-14) Blood Urea Nitrogen 6 mg/dL (7-20) Creatinine 0.6 mg/dL (0.6-1.0) Estimated GFR (Cockcroft-Gault) 108.1 Glucose Level 121 mg/dL (70-99) Calcium Level 8.0 mg/dL (8.5-10.1) Test 03/20/20 12:35 Heparin Anti-Xa Act, Unfractionated < 0.10 IU/mL (0.30-0.70) Brief Hospital Course Ms. Christianson is a 44 old female who presented with bilateral PE and vaginal bleeding following recent hysterectomy. She was placed on IV heparin drip. Consult placed to [facility], no surgical intervention. Recommend monitoring hemoglobin to ensure anticoagulation does not affect interfere. Hemoglobin remained stable. Abdominal pain and bleeding improved. She was discharged with Eliquis for 3 months to treat her bilateral PE. Free samples of Eliquis provided to patient. Discharge Information Condition at Discharge: Stable Follow Up: Weeks Disposition/Orders: D/C to Home Scheduled Apixaban (Eliquis) 5 Mg Tablet, 5 MG PO BID for PE for 30 Days, #60 Ref 2 Take 2 tabs (10 mg) twice daily for first 7 days, then 1 tab (5 mg) twice daily. Duration of treatment is 3 months for PE. Prescribed by: CM MCGILL MD on 03/20/20 1423 Ferrous Sulfate (Iron) 325 Mg Tablet, 325 MG PO DAILY for supplement, (Reported) Entered as Reported by: MARIALUISA DOUGLAS on 01/10/202322 Last Action: HELD on 03/18/202346 by CM MCGILL MD Ferrous Sulfate (Ferrous Sulfate) 325 Mg Tablet, 1 TAB PO BID for anemia, #30 Ref 2 Prescribed by: STACI CHURCHILL MD on 03/16/20833 Last Action: Continued on 03/18/202346 by CM MCGILL MD Mecobalamin (B12 Active) 1,000 Mcg Tab.chew, 1,000 MCG PO DAILY for anemia, #30 Ref 2 Prescribed by: STACI CHURCHILL MD on 03/16/20833 Last Action: Converted on 03/18/202346 by CM MCGILL MD Medroxyprogesterone Acetate (Medroxyprogesterone Acetate) 2.5 Mg Tablet, 5 MG PO DAILY for Dysfunctional uterine bleeding for 90 Days, #180 Ref 1 Prescribed by: GARTH GOMEZ MD on 01/12/20 1006 Multivitamin (Multivitamins) 1 Each Tablet, 1 TAB PO DAILY for supplement, #90 Ref 3 (Reported) Entered as Reported by: ROLA BAIG on 03/19/19226 Last Action: Converted on 03/18/202346 by CM MCGILL MD Naproxen (Naproxen) 500 Mg Tablet, 1 TAB PO BID for pain, #30 Ref 0 Prescribed by: Veronica Harrington APRN on 02/12/201847 Last Action: HELD on 03/18/202346 by CM MCGILL MD Potassium Chloride (Potassium Chloride ) 10 Meq Tab.sr.24h, 10 MEQ PO DAILY for SUPPLEMENT, #7 Prescribed by: Veronica Harrington APRN on 02/12/201907 Last Action: Continued on 03/18/202346 by CM MCGILL MD Scheduled PRN Hydrocodone/Apap 5-325 ([place] 5-325 Tablet) 1 Each Tablet, 1 TAB PO Q6-8HRS PRN for PAIN, #25 Prescribed by: Veronica Harrington APRN on 02/12/201847 Discontinued Medications Ibuprofen (Ibuprofen) 800 Mg Tablet, 800 MG PO PRN Q8HRS PRN for INFLAMMATION, #30 Ref 2 Prescribed by: STACI CHURCHILL MD on 03/16/20833 Last Action: HELD on 03/18/202346 by CM MCGILL MD Oxycodone/Apap 5-325 (Percocet 5-325 Mg Tablet ) 1 Each Tablet, 1 TAB PO PRN Q8HRS PRN for PAIN, #15 Ref 0 Prescribed by: STACI CHURCHILL MD on 03/16/20833 Last Action: Continued on 03/18/202346 by CM MCGILL MD Justicifation of Admission Dx: Justifications for Admission: Justification of Admission Dx: N/A CM MCGILL MD Mar 20, 2020 14:29
[2020-03-20 15:00] VITALS: BP 99/43
--- NOTE | 2020-03-20 17:10 | NUR ---
SW following. Spoke with RN and reviewed chart. SW consulted for assistance with medication. FARIHA spoke with Dr. Chu who would like pt to discharge on Eliquis for 90 days. SW provided pt with a free 30-day trial card for Eliquis. Pt stated she will call the number on the card to see if she can get financial assistance for the remaining 60 days. Pt appreciative and stated no additional needs. Pt to discharge home today, self-care.
--- NOTE | 2020-03-20 17:15 | NUR ---
DISCHARGE INSTRUCTIONS GIVEN TO PATIENT AND SON AT THE BEDSIDE, QUESTIONS AND CONCERNS ANSWERED, PATIENT VERBALIZED UNDERSTANDING OF DISCHARGE INFORMATION INCLUDING TAKING ALL MEDICATIONS INSTRUCTED AND MONITORING FOR EXCESSIVE BLEEDING AND OR BRUISING AND REPORTING TO HER MD. PATIENT ENCOURAGED TO FOLLOW UP WITH DR. CHURCHILL INSTRUCTED.
--- NOTE | 2020-03-20 17:50 | NUR ---
PATIENT LEAVES THE UNIT PER W/C AND ACCOMPANIED BY HER SON AND THIS MEDICINE ASSISTANT, SALINE LOCK REMOVED PRIOR TO DISCHARGE, OCCLUSIVE DRESSING APPLIED.
== END 2020-03-20 17:50 | disposition home or self-care (01) | DRG 919 ==
LOC: ER 20:10 → 5 NORTH 23:40
PROVIDERS: ADMIT Family Medicine; ATTEND Family Medicine
DX: N99.840 Postprocedural hematoma of a genitourinary system organ or structure following a genitourinary system procedure (principal); I26.99 Other pulmonary embolism without acute cor pulmonale; J98.11 Atelectasis; N39.0 Urinary tract infection, site not specified; E46 Unspecified protein-calorie malnutrition; E86.1 Hypovolemia; D64.9 Anemia, unspecified; Y83.8 Other surgical procedures as the cause of abnormal reaction of the patient, or of later complication, without mention of misadventure at the time of the procedure; N99.820 Postprocedural hemorrhage of a genitourinary system organ or structure following a genitourinary system procedure; F17.210 Nicotine dependence, cigarettes, uncomplicated; Z90.710 Acquired absence of both cervix and uterus; Z82.49 Family history of ischemic heart disease and other diseases of the circulatory system; Z88.0 Allergy status to penicillin; Z68.26 Body mass index [BMI] 26.0-26.9, adult
CPT/HCPCS: 36415; 71275; 74177; 80048; 80053; 81001; 83735; 84145; 85007; 85025; 85520; 85610; 85730; 86850; 86900; 86901; 87077; 87086; 87186; J0696; J1644; J2405; J3010; J7030; Q9967; G0378